=== PATIENT | male | born 1955 | race Caucasian/White ===

== ENCOUNTER 2017-03-14 06:35 | Inpatient (IN) | payer MEDICARE, MEDICAID ==
[2017-03-14] VITALS (14 sets, daily range): BP systolic 130–186; BP diastolic 69–85
[~2017-03-14] VITALS: Ht 180.3 cm; Wt 88.5 kg
[~2017-03-14 06:35] MED LIST: ACYC400T PO; ALPR-624 PO; AMIO200T57 PO; CARV-50 PO; CLON-529 PO; CLOP75TA15 PO; COL250C PO; GABA-530 PO; HYDR-3972 PO; LOSA25TA96 PO; SEVE800T8 PO; adenosine 3mg/ml 2ml vial IV ONE; etomidate 2mg/ml inj. ONE; nitroGLYCERIN 0.4mg SUBLingual tab SL ONE; nitroGLYCERIN in D5W 50mg/250ml (Tridil) infusion IV ONE; normal saline 1000ML IV soln ONE; rocuronium 10mg/ml inj IV ONE
[2017-03-14] MEDS ORDERED: propofol 1000mg/100ml bottle 100 ML IV ONE (06:59)
[2017-03-14 07:18] LABS: BASOPHILS # (AUTO) 0.1 X10'3 (0-0.2); BASOPHILS % (AUTO) 0.8 % (0-1); EOSINOPHILS # (AUTO) 0.7 X10'3 (0-0.9); EOSINOPHILS % (AUTO) 4.2 % (0-6); HEMATOCRIT 34.8 % (42.0-52.0); HEMOGLOBIN 11.4 g/dl (14.0-17.9); LYMPHOCYTES # (AUTO) 4.1 X10'3 (1.1-4.8); LYMPHOCYTES % (AUTO) 26.4 % (21-51); MEAN CORPUSCULAR HEMOGLOBIN 30.3 PG (27.0-31.0); MEAN CORPUSCULAR HGB CONC 32.9 % (33.0-36.5); MEAN CORPUSCULAR VOLUME 92.3 FL (78-98); MEAN PLATELET VOLUME 8.1 FL (7.4-10.4); MONOCYTES # (AUTO) 0.6 X10'3 (0-0.9); MONOCYTES % (AUTO) 3.8 % (2-12); NEUTROPHILS # (AUTO) 10.1 X10'3 (1.8-7.7); NEUTROPHILS % (AUTO) 64.8 % (42-75); PLATELET COUNT 290 X10'3 (140-440); RED BLOOD COUNT 3.77 X10'6 (4.70-6.10); RED CELL DISTRIBUTION WIDTH 19.8 % (11.5-14.5); WHITE BLOOD COUNT 15.6 X10'3 (4.5-11.0)
[2017-03-14] MEDS ORDERED: azithromycin/NS 500mg/250ml 250 ML IV ONE (07:20)
[2017-03-14] MEDS ORDERED: CefTRIAXone 2gm/NS 100ml IVPB 100 ML IV ONE (07:20)
[2017-03-14 07:23] LABS: INR 1.1 INR; PARTIAL THROMBOPLASTIN TIME 31 SECONDS (22-32)
[2017-03-14 07:27] LABS: ALANINE AMINOTRANSFERASE 21 U/L (12-78); ALBUMIN 3.4 G/DL (3.4-5.0); ALBUMIN/GLOBULIN RATIO 0.8 (1.1-1.5); ALKALINE PHOSPHATASE 140 IU/L (46-116); ANION GAP 14 (8-16); ASPARTATE AMINO TRANSFERASE 18 U/L (10-37); BILIRUBIN,TOTAL 0.5 MG/DL (0.1-1.0); BLOOD UREA NITROGEN 58 MG/DL (7-18); BUN/CREATININE RATIO 6.4 (5.4-32.0); CHLORIDE 99 MMOL/L (99-107); GLUCOSE 204 MG/DL (70-104); SODIUM 140 MMOL/L (135-145); TOTAL CARBON DIOXIDE 26.6 MMOL/L (24-32); TOTAL PROTEIN 7.9 G/DL (6.4-8.2); eGFR 6 ML/MIN
[2017-03-14 07:28] LABS: POTASSIUM 5.3 MMOL/L (3.5-5.1)
[2017-03-14 07:31] LABS: ABG BASE EXCESS -0.7 mmol/L (-2.0-3.0); ABG HCO3 30.3 mmol/L (22.0-26.0); ABG OXYGEN SATURATION 94.4 % (95-98); ABG PCO2 (T) 91.1 mmHg (35.0-48.0); ABG PO2 (T) 96.9 mmHg (83-108); ALLEN'S TEST Positive; FCOHb 4.8 % (0.5-1.5); FLOW 35 L/min; FO2Hb 89.9 % (94-100); MINUTE VOLUME 7 L/min; PEEP 5 cm H2O; RESPIRATORY RATE 14 b/min; RESPIRATORY RATE (OBSERVED) 14 b/min; TIDAL VOLUME 500 mL; TOTAL HEMOGLOBIN 11.7 G/dl (14.0-18.0)
[2017-03-14] MEDS ORDERED: normal saline 1000ml 250 ML IV PRN (08:29)
[2017-03-14] MEDS ORDERED: heparin 1,000 units/ml 10ml inj IV ONE (08:30)
[2017-03-14] MEDS ORDERED: LIDOcaine 1% (10mg/ml) 2ml vial SQ ONE (08:30)
[2017-03-14] MEDS ORDERED: vancomycin/NS 1 GM ADD-VANTAGE 250 ML IV PRN (08:35)
[2017-03-14] MEDS ORDERED: midazolam 2 mg/2 ml injection IV ONE (08:35)
[2017-03-14] MEDS ORDERED: fentaNYL/PF 50MCG/1 ML 2ML syringe IV PRN (08:35)
[2017-03-14] MEDS ORDERED: ipratropium/albuterol 3ml nebule NEB PRN (08:35)
[2017-03-14] MEDS ORDERED: acetaminophen 325mg tablet PO PRN ×2 (08:35)
[2017-03-14] MEDS ORDERED: ondansetron/PF 4mg/2ml inj IV PRN (08:35)
[2017-03-14] MEDS ORDERED: albuterol 2.5 MG/3 ML nebule ONE (09:00)
[2017-03-14] MEDS ORDERED: albuterol 2.5 MG/3 ML nebule CONTNEB PRN (09:00)
[2017-03-14] MEDS ORDERED: methylPREDNISolone sod succ 125mg/2ml vial IV ONE (09:00)
[2017-03-14] MEDS ORDERED: vancomycin/NS 1 GM ADD-VANTAGE 250 ML IV ONE (09:05)
[2017-03-14 09:15] LABS: ABG BASE EXCESS 0.2 mmol/L (-2.0-3.0); ABG OXYGEN SATURATION 84.7 % (95-98); ABG PCO2 (T) 54.5 mmHg (35.0-48.0); ABG PH (T) 7.313 (7.350-7.450); ABG PO2 (T) 57.7 mmHg (83-108); ALLEN'S TEST Positive; FCOHb 4.3 % (0.5-1.5); FMetHb 0.3 % (0.3-1.12); FO2Hb 80.8 % (94-100); PEEP 5 cm H2O; RESPIRATORY RATE 18 b/min; RESPIRATORY RATE (OBSERVED) 18 b/min; TIDAL VOLUME 500 mL; TOTAL HEMOGLOBIN 10.9 G/dl (14.0-18.0)
[2017-03-14] MEDS: ipratropium/albuterol 3ml nebule NEB SCH ×4 (10:42→22:43)
[2017-03-14] MEDS: midazolam 100mg in NS 100ml 100 ML IV PRN (11:30)
[2017-03-14] MEDS: FENTANYL-0.9 % NACL/PF 100 ML IV PRN (11:31)
[2017-03-14] MEDS ORDERED: HYDR-4069 PO (13:40)
[2017-03-14] MEDS ORDERED: DOCU250C88 PO (13:40)
[2017-03-14] MEDS ORDERED: CLON0.3T PO (13:40)
[2017-03-14] MEDS ORDERED: LOSA50TA37 PO (13:40)
[2017-03-14] MEDS ORDERED: FURO80TA3 PO (13:40)
[2017-03-14] MEDS: piperacillin-tazo 2.25gm/50ml 50 ML IV SCH ×3 (14:00→19:52)
[2017-03-14 14:45] LABS: ABG BASE EXCESS 2.7 mmol/L (-2.0-3.0); ABG HCO3 26.7 mmol/L (22.0-26.0); ABG OXYGEN SATURATION 94.3 % (95-98); ABG PH (T) 7.454 (7.350-7.450); ABG PO2 (T) 75.2 mmHg (83-108); ALLEN'S TEST Positive; FCOHb 1.8 % (0.5-1.5); FMetHb 0.3 % (0.3-1.12); FO2Hb 92.3 % (94-100); MINUTE VOLUME 10 L/min; PEEP 5 cm H2O; RESPIRATORY RATE 20 b/min; RESPIRATORY RATE (OBSERVED) 22 b/min; TIDAL VOLUME 400 mL; TOTAL HEMOGLOBIN 10.7 G/dl (14.0-18.0)
[2017-03-14] MEDS ORDERED: ALPR-624 PO (16:35)
[2017-03-14] MEDS ORDERED: ALPR0.5T8 PO (16:35)
[2017-03-14] MEDS ORDERED: NIFE90TA37 PO (16:59)
[2017-03-14] MEDS ORDERED: FOLI0.8T7 PO (17:01)
[2017-03-14] MEDS ORDERED: FOLI1TAB16 PO (17:02)
[2017-03-14] MEDS ORDERED: ONDA4TAB12 SL (17:02)
[2017-03-14] MEDS: lactobacillus rhamnosus 10,000 MMU CELLS/CAPSULE PO SCH (17:57)
[2017-03-14] MEDS: docusate sodium 100mg/10ml UD cup PO SCH (19:07)
[2017-03-14] MEDS: famotidine/PF 10 mg/ml inj IV SCH (19:52)
[2017-03-14] MEDS: heparin, porcine 5000 units/ml vial SQ SCH (19:52)
[2017-03-15] VITALS (11 sets, daily range): BP systolic 169–232; BP diastolic 75–92
[2017-03-15] MEDS: piperacillin-tazo 2.25gm/50ml 50 ML IV SCH ×2 (01:24→07:13)
[2017-03-15] MEDS: ipratropium/albuterol 3ml nebule NEB SCH ×2 (02:35→07:57)
[2017-03-15] MEDS ORDERED: VANCOMYCIN LEVEL IV SCH (03:00)
[2017-03-15 04:11] LABS: ABG BASE EXCESS 1.7 mmol/L (-2.0-3.0); ABG HCO3 25.6 mmol/L (22.0-26.0); ABG OXYGEN SATURATION 94.2 % (95-98); ABG PCO2 (T) 37.1 mmHg (35.0-48.0); ABG PH (T) 7.456 (7.350-7.450); ABG PO2 (T) 73.8 mmHg (83-108); ALLEN'S TEST Positive; FCOHb 1.2 % (0.5-1.5); FMetHb 0.3 % (0.3-1.12); FO2Hb 92.8 % (94-100); MINUTE VOLUME 9 L/min; PATIENT TEMPERATURE 36.9; PEEP 5 cm H2O; RESPIRATORY RATE 20 b/min; RESPIRATORY RATE (OBSERVED) 21 b/min; TIDAL VOLUME 400 mL; TOTAL HEMOGLOBIN 10.1 G/dl (14.0-18.0)
[2017-03-15] MEDS: midazolam 100mg in NS 100ml 100 ML IV PRN (05:03)
[2017-03-15 05:15] LABS: BASOPHILS # (AUTO) 0.1 X10'3 (0-0.2); EOSINOPHILS # (AUTO) 0.1 X10'3 (0-0.9); EOSINOPHILS % (AUTO) 1.4 % (0-6); HEMATOCRIT 27.8 % (42.0-52.0); HEMOGLOBIN 9.4 g/dl (14.0-17.9); LYMPHOCYTES # (AUTO) 1.2 X10'3 (1.1-4.8); LYMPHOCYTES % (AUTO) 19.1 % (21-51); MEAN CORPUSCULAR HEMOGLOBIN 30.1 PG (27.0-31.0); MEAN CORPUSCULAR HGB CONC 33.8 % (33.0-36.5); MEAN CORPUSCULAR VOLUME 89.2 FL (78-98); MEAN PLATELET VOLUME 7.8 FL (7.4-10.4); MONOCYTES # (AUTO) 0.3 X10'3 (0-0.9); MONOCYTES % (AUTO) 5.4 % (2-12); NEUTROPHILS # (AUTO) 4.5 X10'3 (1.8-7.7); NEUTROPHILS % (AUTO) 73.1 % (42-75); PLATELET COUNT 175 X10'3 (140-440); RED BLOOD COUNT 3.12 X10'6 (4.70-6.10); RED CELL DISTRIBUTION WIDTH 19.4 % (11.5-14.5); WHITE BLOOD COUNT 6.1 X10'3 (4.5-11.0)
[2017-03-15 05:58] LABS: ALANINE AMINOTRANSFERASE 19 U/L (12-78); ALBUMIN 2.8 G/DL (3.4-5.0); ALBUMIN/GLOBULIN RATIO 0.8 (1.1-1.5); ALKALINE PHOSPHATASE 109 IU/L (46-116); ANION GAP 11 (8-16); ASPARTATE AMINO TRANSFERASE 18 U/L (10-37); BILIRUBIN,TOTAL 0.5 MG/DL (0.1-1.0); BLOOD UREA NITROGEN 34 MG/DL (7-18); BUN/CREATININE RATIO 5.8 (5.4-32.0); CALCIUM 9.1 MG/DL (8.5-10.1); CHLORIDE 100 MMOL/L (99-107); GLUCOSE 100 MG/DL (70-104); MAGNESIUM 2.2 MG/DL (1.5-2.4); PHOSPHORUS 6.1 MG/DL (2.3-4.5); POTASSIUM 4.4 MMOL/L (3.5-5.1); SODIUM 140 MMOL/L (135-145); TOTAL CARBON DIOXIDE 28.8 MMOL/L (24-32); TOTAL PROTEIN 6.5 G/DL (6.4-8.2); VANCOMYCIN,RANDOM 6.6 UG/ML; eGFR 10 ML/MIN
[2017-03-15 06:15] LABS: TROPONIN I 2.13 NG/ML (0.0-0.05)
[2017-03-15] MEDS: FENTANYL-0.9 % NACL/PF 100 ML IV PRN (06:46)
[2017-03-15] MEDS: famotidine/PF 10 mg/ml inj IV SCH (07:12)
[2017-03-15] MEDS: heparin, porcine 5000 units/ml vial SQ SCH (07:13)
[2017-03-15] MEDS: lactobacillus rhamnosus 10,000 MMU CELLS/CAPSULE PO SCH (07:13)
[2017-03-15] MEDS: docusate sodium 100mg/10ml UD cup PO SCH (07:13)
[2017-03-15] MEDS ORDERED: vancomycin inj 1,250 MG in normal saline 250ml IV soln 250 ML IV ONE (09:00)
[2017-03-15] MEDS ORDERED: racepinephrine 11.25mg/0.5ml nebule NEB PRN (09:15)
[2017-03-15] MEDS ORDERED: ipratropium/albuterol 3ml nebule NEB PRN (09:15)
[2017-03-15] MEDS ORDERED: mineral oil/petrolatum ophthal oint EACHEYE SCH (14:00)
[2017-03-15] MEDS ORDERED: ipratropium/albuterol 3ml nebule NEB SCH (15:00)
== END 2017-03-15 10:26 | disposition left against medical advice (07) | DRG 208 ==
LOC: ER 06:35 → ED HOLD 08:31 → ICU 2S 11:23
PROVIDERS: ADMIT Internal Medicine Critical Care Medicine; ATTEND Internal Medicine Critical Care Medicine
PROC: 5A1945Z Respiratory Ventilation, 24-96 Consecutive Hours (ICD-10-PCS; principal; 2017-03-14)
PROC: 5A09357 Assistance with Respiratory Ventilation, Less than 24 Consecutive Hours, Continuous Positive Airway Pressure (ICD-10-PCS; 2017-03-14)
PROC: 0BH17EZ Insertion of Endotracheal Airway into Trachea, Via Natural or Artificial Opening (ICD-10-PCS; 2017-03-14)
PROC: 5A1D70Z Performance of Urinary Filtration, Intermittent, Less than 6 Hours Per Day (ICD-10-PCS; 2017-03-14)
DX: J96.21 Acute and chronic respiratory failure with hypoxia (principal); I21.4 Non-ST elevation (NSTEMI) myocardial infarction; J81.0 Acute pulmonary edema; I13.2 Hypertensive heart and chronic kidney disease with heart failure and with stage 5 chronic kidney disease, or end stage renal disease; J18.1 Lobar pneumonia, unspecified organism; N18.6 End stage renal disease; I50.9 Heart failure, unspecified; J44.0 Chronic obstructive pulmonary disease with (acute) lower respiratory infection; J44.1 Chronic obstructive pulmonary disease with (acute) exacerbation; G47.30 Sleep apnea, unspecified; Z53.21 Procedure and treatment not carried out due to patient leaving prior to being seen by health care provider; F32.9 Major depressive disorder, single episode, unspecified; I25.10 Atherosclerotic heart disease of native coronary artery without angina pectoris; F17.210 Nicotine dependence, cigarettes, uncomplicated; Z91.15 Patient's noncompliance with renal dialysis; Z91.19 Patient's noncompliance with other medical treatment and regimen; Z99.2 Dependence on renal dialysis; Z88.2 Allergy status to sulfonamides; Z79.899 Other long term (current) drug therapy
CPT/HCPCS: 36415; 36600; 71045; 80053; 80202; 82803; 82948; 83605; 83735; 84100; 84145; 84484; 85018; 85025; 85610; 85730; 87040; 87070; 87502; 87503; 93005; 94002; 94003; 94640; 94660; 94760; 96365; 99291; 99292; A6213; A6402; A7015; C1758; G0257; J0153; J0456; J0696; J1644; J2250; J2543; J2704; J2930; J3370; J3490; J7030

== ENCOUNTER 2017-12-08 12:14 | Inpatient (IN) | payer MEDICARE, MEDICAID ==
[2017-12-08] VITALS (14 sets, daily range): BP systolic 65–171; BP diastolic 52–96
[~2017-12-08] VITALS: Ht 185.4 cm; Wt 93.1 kg
[~2017-12-08 12:14] MED LIST changes: +0.9 % SODIUM CHLORIDE 10 ML VIAL ONE; -ACYC400T PO; +ALPR0.5T8 PO; -AMIO200T57 PO; -CLON-529 PO; +CLON0.3T PO; -CLOP75TA15 PO; -COL250C PO; +DOCU250C88 PO; +FOLI0.8T7 PO; +FOLI1TAB16 PO; +FURO80TA3 PO; +HYDR-4069 PO; -LOSA25TA96 PO; +LOSA50TA21 PO; +NIFE90TA37 PO; +NORepinephrine bitartrate 8 MG in NS 250 ML BAG (32 mcg/ml) IV ONE; +ONDA4TAB12 SL; -adenosine 3mg/ml 2ml vial IV ONE; -nitroGLYCERIN 0.4mg SUBLingual tab SL ONE; -nitroGLYCERIN in D5W 50mg/250ml (Tridil) infusion IV ONE; -normal saline 1000ML IV soln ONE
[2017-12-08] MEDS ORDERED: succinylcholine 20mg/ml inj IV ONE (12:35)
[2017-12-08] MEDS ORDERED: etomidate 2mg/ml inj. IV ONE (12:35)
[2017-12-08] MEDS: propofol 1000mg/100ml bottle 100 ML IV PRN ×2 (12:41→22:53)
[2017-12-08 12:47] LABS: BASOPHILS # (AUTO) 0.1 X10'3 (0-0.2); BASOPHILS % (AUTO) 0.5 % (0-1); EOSINOPHILS # (AUTO) 0.4 X10'3 (0-0.9); EOSINOPHILS % (AUTO) 2.7 % (0-6); HEMATOCRIT 41.6 % (42.0-52.0); HEMOGLOBIN 13.5 g/dl (14.0-17.9); LYMPHOCYTES # (AUTO) 4.5 X10'3 (1.1-4.8); LYMPHOCYTES % (AUTO) 29.1 % (21-51); MEAN CORPUSCULAR HEMOGLOBIN 30.4 PG (27.0-31.0); MEAN CORPUSCULAR HGB CONC 32.4 % (33.0-36.5); MEAN CORPUSCULAR VOLUME 93.7 FL (78-98); MEAN PLATELET VOLUME 8.1 FL (7.4-10.4); MONOCYTES # (AUTO) 0.6 X10'3 (0-0.9); MONOCYTES % (AUTO) 3.7 % (2-12); NEUTROPHILS # (AUTO) 9.9 X10'3 (1.8-7.7); PLATELET COUNT 319 X10'3 (140-440); RED BLOOD COUNT 4.45 X10'6 (4.70-6.10); RED CELL DISTRIBUTION WIDTH 18.1 % (11.5-14.5); WHITE BLOOD COUNT 15.5 X10'3 (4.5-11.0)
[2017-12-08] MEDS ORDERED: nitroGLYCERIN-Tridil 50MG/D5W 250 ML IV PRN (12:55)
[2017-12-08 13:01] LABS: ALANINE AMINOTRANSFERASE 17 U/L (12-78); ALBUMIN 3.4 G/DL (3.4-5.0); ALBUMIN/GLOBULIN RATIO 0.7 (1.1-1.5); ALKALINE PHOSPHATASE 145 IU/L (46-116); ANION GAP 12 (8-16); ASPARTATE AMINO TRANSFERASE 13 U/L (10-37); BILIRUBIN,TOTAL 0.5 MG/DL (0.1-1.0); BLOOD UREA NITROGEN 44 MG/DL (7-18); BUN/CREATININE RATIO 5.2 (5.4-32.0); CHLORIDE 101 MMOL/L (99-107); CREATININE 8.39 MG/DL (0.60-1.10); GLUCOSE 219 MG/DL (70-104); POTASSIUM 5.7 MMOL/L (3.5-5.1); SODIUM 139 MMOL/L (135-145); TOTAL PROTEIN 8.5 G/DL (6.4-8.2); eGFR 7 ML/MIN
[2017-12-08 13:01] LABS: ABG BASE EXCESS -9.3 mmol/L (-2.0-3.0); ABG HCO3 25.9 mmol/L (22.0-26.0); ABG PCO2 (T) 115.8 mmHg (35.0-48.0); ABG PH (T) 6.956 (7.350-7.450); ABG PO2 (T) 81.2 mmHg (83-108); ALLEN'S TEST Positive; FCOHb 7.4 % (0.5-1.5); FMetHb 0.3 % (0.3-1.12); MINUTE VOLUME 8 L/min; PATIENT TEMPERATURE 35.4; PEEP 5 cm H2O; RESPIRATORY RATE 16 b/min; RESPIRATORY RATE (OBSERVED) 17 b/min; TIDAL VOLUME 450 mL; TOTAL HEMOGLOBIN 13.5 G/dl (14.0-18.0)
[2017-12-08 13:06] LABS: ETHANOL < 0.010 GM/DL (0.0-0.010); MAGNESIUM 2.8 MG/DL (1.5-2.4); PHOSPHORUS 4.8 MG/DL (2.3-4.5)
[2017-12-08 13:12] LABS: INR 1.1 INR; PARTIAL THROMBOPLASTIN TIME 37 SECONDS (22-32); PROTHROMBIN TIME 10.9 SECONDS (9.0-12.0)
[2017-12-08 13:14] LABS: CLARITY,URINE CLEAR (Clear); COLOR,URINE YELLOW (Yellow); GLUCOSE, URINE 250 mg/dl (Neg); KETONES,URINE NEGATIVE (Neg); LEUKOCYTE ESTERASE ,URINE NEGATIVE (Neg); NITRITES, URINE NEGATIVE (Neg); OCCULT BLOOD,URINE TRACE-INTACT (Neg); PROTEIN,URINE 100 mg/dl (Neg); UROBILINOGEN,URINE 0.2 E.U/dL (0.2-1.0)
[2017-12-08 13:16] LABS: ACETAMINOPHEN < 2.0 UG/ML (10-30)
[2017-12-08 13:18] LABS: LACTIC SEPSIS 4.9 MMOL/L (0.4-2.0)
[2017-12-08 13:19] LABS: UA COLLECTION TYPE FOLEY CATH
[2017-12-08 13:23] LABS: BACTERIA,URINE NONE SEEN /HPF (Neg); RBC,URINE 0-2 /HPF (0-2); SQUAMOUS EPITHELIAL CELL,UR FEW /LPF (FEW); URINE AMPHETAMINE SCREEN NEGATIVE (Neg); URINE BARBITUATE SCREEN NEGATIVE (Neg); URINE BENZODIAZEPINES SCREEN NEGATIVE (Neg); URINE CANNABINOID SCREEN NEGATIVE (Neg); URINE COCAINE SCREEN NEGATIVE (Neg); URINE METHADONE SCREEN NEGATIVE (Neg); URINE OPIATE SCREEN POSITIVE (Neg); URINE PHENCYCLIDINE SCREEN NEGATIVE (Neg); WBC,URINE 0-4 /HPF (0-4)
[2017-12-08] MEDS ORDERED: normal saline 1000ml 250 ML IV PRN (13:24)
[2017-12-08] MEDS ORDERED: normal saline 1000ml 100 ML IV PRN (13:24)
[2017-12-08] MEDS: pantoprazole 40 MG vial IV SCH (13:25)
[2017-12-08] MEDS ORDERED: ipratropium/albuterol 3ml nebule NEB PRN (13:25)
[2017-12-08] MEDS ORDERED: acetaminophen 325mg tablet PO PRN ×2 (13:25)
[2017-12-08] MEDS ORDERED: morphine 2 MG/ML inj. syringe IV PRN (13:25)
[2017-12-08] MEDS ORDERED: metoclopramide 5 mg/ml inj IV PRN (13:25)
[2017-12-08] MEDS ORDERED: magnesium hydroxide 30ml (MOM) UD suspension PO PRN (13:25)
[2017-12-08 13:33] LABS: ANISOCYTOSIS 2+; PLATELET ESTIMATE NORMAL
[2017-12-08] MEDS ORDERED: DOCU250C4 PO (13:38)
[2017-12-08] MEDS ORDERED: CLON-529 PO (13:38)
[2017-12-08] MEDS ORDERED: NIFE30TA88 PO (13:38)
[2017-12-08] MEDS ORDERED: MINO2.5T19 PO (13:38)
[2017-12-08] MEDS ORDERED: CARV-50 PO (13:38)
[2017-12-08] MEDS ORDERED: GABA-530 PO (13:38)
[2017-12-08] MEDS ORDERED: SEVE800T8 PO (13:38)
[2017-12-08] MEDS ORDERED: LOSA25TA96 PO (13:38)
[2017-12-08] MEDS ORDERED: HYDR-4353 PO (13:38)
[2017-12-08] MEDS ORDERED: CYAN1TAB18 PO (13:38)
[2017-12-08] MEDS ORDERED: ONDA4TAB9 SL (13:38)
[2017-12-08] MEDS ORDERED: rocuronium 10mg/ml inj IV ONE (13:55)
[2017-12-08 14:16] LABS: ABG BASE EXCESS -7.3 mmol/L (-2.0-3.0); ABG HCO3 23.6 mmol/L (22.0-26.0); ABG OXYGEN SATURATION 93.8 % (95-98); ABG PCO2 (T) 75.2 mmHg (35.0-48.0); ABG PH (T) 7.115 (7.350-7.450); ABG PO2 (T) 89.9 mmHg (83-108); ALLEN'S TEST Positive; FCOHb 5.9 % (0.5-1.5); FMetHb 0.3 % (0.3-1.12); MINUTE VOLUME 12 L/min; PEEP 10 cm H2O; RESPIRATORY RATE 22 b/min; TIDAL VOLUME 475 mL; TOTAL HEMOGLOBIN 13.9 G/dl (14.0-18.0)
[2017-12-08 14:31] LABS: D-DIMER 1.87 MG/L FEU (0-0.50)
[2017-12-08] MEDS ORDERED: vancomycin/NS 1 GM ADD-VANTAGE 250 ML IV ONE ×2 (15:20→20:00)
[2017-12-08] MEDS ORDERED: cefepime 1GM/NS ADD-VANTAGE 100 ML IV SCH (15:20)
[2017-12-08] MEDS: cefepime 1GM/NS ADD-VANTAGE 100 ML IV SCH (19:00)
[2017-12-08] MEDS ORDERED: albumin (human) 25% 100ml IV 100 ML IV ONE (19:25)
[2017-12-08] MEDS ORDERED: NORepinephrine 8mg/ 250ml NS 250 ML IV SCH (19:25)
[2017-12-08 19:40] LABS: ABG BASE EXCESS -0.9 mmol/L (-2.0-3.0); ABG HCO3 24.3 mmol/L (22.0-26.0); ABG OXYGEN SATURATION 94.6 % (95-98); ABG PCO2 (T) 41.3 mmHg (35.0-48.0); ABG PH (T) 7.385 (7.350-7.450); ABG PO2 (T) 70.2 mmHg (83-108); ALLEN'S TEST Positive; FCOHb 2.9 % (0.5-1.5); FMetHb 0.3 % (0.3-1.12); FO2Hb 91.6 % (94-100); MINUTE VOLUME 11 L/min; PATIENT TEMPERATURE 36.4; PEEP 10 cm H2O; RESPIRATORY RATE 22 b/min; RESPIRATORY RATE (OBSERVED) 23 b/min; TIDAL VOLUME 475 mL
[2017-12-08 20:18] LABS: MAGNESIUM 2.1 MG/DL (1.5-2.4)
[2017-12-08] MEDS ORDERED: heparin 10,000 units/1 ML INJ IV ONE (20:30)
[2017-12-08 21:01] LABS: HEMATOCRIT 35.3 % (42.0-52.0); HEMOGLOBIN 11.6 g/dl (14.0-17.9); MEAN CORPUSCULAR HEMOGLOBIN 30.1 PG (27.0-31.0); MEAN CORPUSCULAR HGB CONC 32.8 % (33.0-36.5); MEAN CORPUSCULAR VOLUME 91.8 FL (78-98); MEAN PLATELET VOLUME 7.3 FL (7.4-10.4); PLATELET COUNT 252 X10'3 (140-440); RED BLOOD COUNT 3.84 X10'6 (4.70-6.10); WHITE BLOOD COUNT 14.6 X10'3 (4.5-11.0)
[2017-12-08] MEDS: heparin 25,000 UNIT/250ml bag 250 ML IV SCH (21:11)
[2017-12-08 21:26] LABS: OXYGEN SATURATION (MIXED VEN) 85.7 % (60-80); PO2 MIXED VENOUS (TEMP COR) 46.3 mmHg (35-46)
[2017-12-08] MEDS ORDERED: aspirin 81mg tab.chew PO ONE (21:40)
[2017-12-09] VITALS (24 sets, daily range): BP systolic 102–194; BP diastolic 52–115
[2017-12-09 00:55] LABS: ALANINE AMINOTRANSFERASE 23 U/L (12-78); ALBUMIN 3.1 G/DL (3.4-5.0); ALBUMIN/GLOBULIN RATIO 0.8 (1.1-1.5); ALKALINE PHOSPHATASE 113 IU/L (46-116); ANION GAP 15 (8-16); ASPARTATE AMINO TRANSFERASE 121 U/L (10-37); BILIRUBIN,TOTAL 0.6 MG/DL (0.1-1.0); BLOOD UREA NITROGEN 30 MG/DL (7-18); CALCIUM 9.3 MG/DL (8.5-10.1); CHLORIDE 100 MMOL/L (99-107); CREATININE 5.99 MG/DL (0.60-1.10); GLUCOSE 75 MG/DL (70-104); POTASSIUM 4.4 MMOL/L (3.5-5.1); SODIUM 140 MMOL/L (135-145); TOTAL CARBON DIOXIDE 25.3 MMOL/L (24-32); eGFR 10 ML/MIN
[2017-12-09 00:58] LABS: MAGNESIUM 2.2 MG/DL (1.5-2.4); PHOSPHORUS 3.4 MG/DL (2.3-4.5)
[2017-12-09] MEDS: nitroGLYCERIN-Tridil 50MG/D5W 250 ML IV PRN ×2 (01:34→19:10)
[2017-12-09] MEDS: propofol 1000mg/100ml bottle 100 ML IV PRN ×5 (02:33→23:34)
[2017-12-09 03:14] LABS: BASOPHILS % (AUTO) 0.3 % (0-1); EOSINOPHILS # (AUTO) 0.2 X10'3 (0-0.9); HEMATOCRIT 32.5 % (42.0-52.0); HEMOGLOBIN 10.9 g/dl (14.0-17.9); LYMPHOCYTES # (AUTO) 0.7 X10'3 (1.1-4.8); LYMPHOCYTES % (AUTO) 6.8 % (21-51); MEAN CORPUSCULAR HEMOGLOBIN 30.5 PG (27.0-31.0); MEAN CORPUSCULAR HGB CONC 33.4 % (33.0-36.5); MEAN CORPUSCULAR VOLUME 91.4 FL (78-98); MEAN PLATELET VOLUME 7.6 FL (7.4-10.4); MONOCYTES # (AUTO) 0.5 X10'3 (0-0.9); MONOCYTES % (AUTO) 4.9 % (2-12); NEUTROPHILS # (AUTO) 9.5 X10'3 (1.8-7.7); PLATELET COUNT 214 X10'3 (140-440); RED BLOOD COUNT 3.56 X10'6 (4.70-6.10); RED CELL DISTRIBUTION WIDTH 17.2 % (11.5-14.5); WHITE BLOOD COUNT 11.1 X10'3 (4.5-11.0)
[2017-12-09 04:05] LABS: ABG BASE EXCESS -0.4 mmol/L (-2.0-3.0); ABG HCO3 24.3 mmol/L (22.0-26.0); ABG OXYGEN SATURATION 98.2 % (95-98); ABG PCO2 (T) 40.1 mmHg (35.0-48.0); ABG PH (T) 7.401 (7.350-7.450); ABG PO2 (T) 119.1 mmHg (83-108); ALLEN'S TEST Positive; FCOHb 0.9 % (0.5-1.5); FMetHb 0.3 % (0.3-1.12); MINUTE VOLUME 11 L/min; PEEP 10 cm H2O; RESPIRATORY RATE 22 b/min; RESPIRATORY RATE (OBSERVED) 22 b/min; TIDAL VOLUME 475 mL; TOTAL HEMOGLOBIN 11.6 G/dl (14.0-18.0)
[2017-12-09] MEDS: heparin 10,000 units/1 ML INJ IV PRN ×2 (04:18→09:49)
[2017-12-09] MEDS: heparin 25,000 UNIT/250ml bag 250 ML IV SCH ×2 (04:21→09:54)
[2017-12-09] MEDS ORDERED: dextrose 50%-water 50ml dispensing syringe IV ONE (08:33)
[2017-12-09] MEDS: pantoprazole 40 MG vial IV SCH (08:43)
[2017-12-09] MEDS ORDERED: gabapentin 100mg capsule PO PRN (10:55)
[2017-12-09] MEDS: sevelamer carbonate 800mg tablet PO SCH ×3 (12:00→23:34)
[2017-12-09] MEDS: cloNIDine 0.1 mg tablet PO SCH ×2 (13:00→21:00)
[2017-12-09] MEDS: docusate sod 250mg capsule PO SCH (13:47)
[2017-12-09] MEDS: HYDROcodone/acetaminophen 10/325mg tab PO SCH ×2 (13:47→20:00)
[2017-12-09] MEDS ORDERED: nitroGLYCERIN-Tridil 50MG/D5W 250 ML IV ONE (15:07)
[2017-12-09] MEDS ORDERED: heparin 1,000unit/ml 10ml vial 10 ML ONE (15:07)
[2017-12-09] MEDS ORDERED: iohexol 350 MG/1 ML 200ml bottle ONE (15:07)
[2017-12-09] MEDS ORDERED: LIDOcaine 1% 30ml preserv. free vial ONE (15:07)
[2017-12-09] MEDS: normal saline 1000ml 1,000 ML IV SCH (15:11)
[2017-12-09] MEDS ORDERED: metoprolol tartrate 1mg/ml inj IV ONE (15:47)
[2017-12-09] MEDS ORDERED: iohexol 350 MG/ML 50ML vial IV ONE (15:53)
[2017-12-09] MEDS: ondansetron 4mg rapidly disintigrating tab PO SCH (16:00)
[2017-12-09] MEDS ORDERED: iohexol 350MG/ML 100ml bottle IV ONE (16:38)
[2017-12-09] MEDS ORDERED: heparin 25,000 UNIT/250ml bag 250 ML IV ONE (16:46)
[2017-12-09] MEDS ORDERED: DOBUTamine-DoBUTrex 500mg/D5W 250 ML IV ONE (16:52)
[2017-12-09] MEDS ORDERED: niCARDipine-NS 40mg/200ml IVPB 200 ML IV ONE (17:39)
[2017-12-09 17:46] LABS: ISTAT Hct MIX 30 %PCV (42-52); ISTAT O2 SATURATION MIX VENOUS 69 % (60-80); ISTAT SOURCE MIX
[2017-12-09 17:46] LABS: ISTAT HGB ART 10.2 g/dl (14.0-18.0); ISTAT Hct ART 30 %PCV (42-52); ISTAT O2 SATURATION ARTERIAL 99 % (95-98); ISTAT SOURCE ART
[2017-12-09] MEDS ORDERED: HYDROcodone/acetaminophen 10/325mg tab PO PRN ×2 (18:10)
[2017-12-09] MEDS ORDERED: acetaminophen 325mg tablet PO PRN (18:10)
[2017-12-09] MEDS ORDERED: CLOPIDOGREL BISULFATE 300MG TAB PO ONE (18:10)
[2017-12-09] MEDS ORDERED: proCHLORperazine 10 MG/2 ml inj IV PRN (18:10)
[2017-12-09] MEDS ORDERED: hydrALAZINE 20mg/ml inj. IV PRN (18:15)
[2017-12-09] MEDS: morphine 4 MG/ML inj SYRINge IV PRN (18:36)
[2017-12-09] MEDS: niCARDipine/sod cl 20mg/200ml 200 ML IV SCH ×2 (19:00→20:05)
[2017-12-09] MEDS: DOBUTamine 2000 MCG/250ML BAG IV SCH (19:55)
[2017-12-09] MEDS ORDERED: minoxidil 2.5mg tablet PO SCH (20:00)
[2017-12-09] MEDS: docusate sod 100mg capsule PO SCH (20:00)
[2017-12-09] MEDS: cefepime 1GM/NS ADD-VANTAGE 100 ML IV SCH (20:18)
[2017-12-09] MEDS: carVEDilol 12.5mg tablet PO SCH (20:18)
[2017-12-09] MEDS: losartan 25mg tablet PO SCH (20:19)
[2017-12-09] MEDS: NIFEdipine XL 30mg tablet PO SCH (20:19)
[2017-12-09] MEDS: ipratropium/albuterol 3ml nebule NEB SCH ×2 (21:00→21:22)
[2017-12-10] VITALS (24 sets, daily range): BP systolic 85–150; BP diastolic 51–84
[2017-12-10] MEDS: niCARDipine/sod cl 20mg/200ml 200 ML IV SCH ×6 (00:05→20:05)
[2017-12-10] MEDS: HYDROcodone/acetaminophen 10/325mg tab PO SCH ×4 (00:58→20:00)
[2017-12-10] MEDS: heparin 25,000 UNIT/250ml bag 250 ML IV SCH ×2 (01:04→08:08)
[2017-12-10] MEDS: heparin 10,000 units/1 ML INJ IV PRN (01:06)
[2017-12-10 02:36] LABS: ABG BASE EXCESS -1.9 mmol/L (-2.0-3.0); ABG HCO3 22.1 mmol/L (22.0-26.0); ABG OXYGEN SATURATION 92.1 % (95-98); ABG PCO2 (T) 34.6 mmHg (35.0-48.0); ABG PH (T) 7.423 (7.350-7.450); FCOHb 0.3 % (0.5-1.5); FMetHb 0.3 % (0.3-1.12); FO2Hb 91.5 % (94-100); MINUTE VOLUME 12 L/min; PATIENT TEMPERATURE 36.8; PEEP 5 cm H2O; RESPIRATORY RATE 22 b/min; RESPIRATORY RATE (OBSERVED) 22 b/min; TIDAL VOLUME 475 mL; TOTAL HEMOGLOBIN 9.8 G/dl (14.0-18.0)
[2017-12-10] MEDS: ipratropium/albuterol 3ml nebule NEB SCH ×4 (02:40→20:42)
[2017-12-10] MEDS: propofol 1000mg/100ml bottle 100 ML IV PRN ×7 (02:42→21:24)
[2017-12-10 03:05] LABS: BASOPHILS # (AUTO) 0.1 X10'3 (0-0.2); BASOPHILS % (AUTO) 0.6 % (0-1); EOSINOPHILS # (AUTO) 0.2 X10'3 (0-0.9); EOSINOPHILS % (AUTO) 2.3 % (0-6); HEMATOCRIT 27.5 % (42.0-52.0); HEMOGLOBIN 8.9 g/dl (14.0-17.9); LYMPHOCYTES # (AUTO) 1.2 X10'3 (1.1-4.8); LYMPHOCYTES % (AUTO) 11.5 % (21-51); MEAN CORPUSCULAR HEMOGLOBIN 29.9 PG (27.0-31.0); MEAN CORPUSCULAR HGB CONC 32.6 % (33.0-36.5); MEAN CORPUSCULAR VOLUME 91.6 FL (78-98); MEAN PLATELET VOLUME 8.3 FL (7.4-10.4); MONOCYTES # (AUTO) 0.7 X10'3 (0-0.9); MONOCYTES % (AUTO) 6.7 % (2-12); NEUTROPHILS # (AUTO) 8.2 X10'3 (1.8-7.7); NEUTROPHILS % (AUTO) 78.9 % (42-75); PLATELET COUNT 174 X10'3 (140-440); RED CELL DISTRIBUTION WIDTH 17.3 % (11.5-14.5); WHITE BLOOD COUNT 10.3 X10'3 (4.5-11.0)
[2017-12-10 03:29] LABS: ALANINE AMINOTRANSFERASE 17 U/L (12-78); ALBUMIN 2.5 G/DL (3.4-5.0); ALBUMIN/GLOBULIN RATIO 0.7 (1.1-1.5); ALKALINE PHOSPHATASE 93 IU/L (46-116); ANION GAP 14 (8-16); ASPARTATE AMINO TRANSFERASE 58 U/L (10-37); BILIRUBIN,TOTAL 0.5 MG/DL (0.1-1.0); BLOOD UREA NITROGEN 43 MG/DL (7-18); BUN/CREATININE RATIO 5.4 (5.4-32.0); CALCIUM 9.5 MG/DL (8.5-10.1); CHLORIDE 98 MMOL/L (99-107); CHOL/HDL RATIO 3.7 (0.00-4.99); CHOLESTEROL 108 MG/DL (0-200); CREATININE 7.93 MG/DL (0.60-1.10); GLUCOSE 108 MG/DL (70-104); HDL CHOLESTEROL 29 MG/DL (35-60); LDL CHOLESTEROL 60 MG/DL (50-100); PHOSPHORUS 5.1 MG/DL (2.3-4.5); POTASSIUM 4.9 MMOL/L (3.5-5.1); SODIUM 134 MMOL/L (135-145); TOTAL CARBON DIOXIDE 22.3 MMOL/L (24-32); TOTAL PROTEIN 5.9 G/DL (6.4-8.2); TRIGLYCERIDES 120 MG/DL (20-135); eGFR 7 ML/MIN
[2017-12-10] MEDS ORDERED: vancomycin/NS 1 GM ADD-VANTAGE 250 ML IV ONE ×2 (04:50→15:00)
[2017-12-10] MEDS: NIFEdipine XL 30mg tablet PO SCH ×2 (07:55→19:48)
[2017-12-10] MEDS: docusate sod 100mg capsule PO SCH (07:55)
[2017-12-10] MEDS: ondansetron 4mg rapidly disintigrating tab PO SCH ×3 (07:56→17:14)
[2017-12-10] MEDS: carVEDilol 12.5mg tablet PO SCH ×3 (08:00→21:22)
[2017-12-10] MEDS ORDERED: PYRIDOXINE PO SCH (08:00)
[2017-12-10] MEDS ORDERED: FOLIC ACID PO SCH (08:00)
[2017-12-10] MEDS ORDERED: CYANOCOBALAMIN PO SCH (08:00)
[2017-12-10] MEDS: pantoprazole 40 MG vial IV SCH (08:21)
[2017-12-10] MEDS: cloNIDine 0.1 mg tablet PO SCH ×3 (08:22→21:21)
[2017-12-10] MEDS: aspirin 81mg tab.chew PO SCH (08:22)
[2017-12-10] MEDS: atorvastatin 20mg tablet PO SCH (08:23)
[2017-12-10] MEDS: clopidogrel 75mg tablet PO SCH (08:23)
[2017-12-10] MEDS: losartan 25mg tablet PO SCH ×2 (08:25→21:22)
[2017-12-10] MEDS: sevelamer carbonate 0.8gm powder pkt PO SCH ×4 (08:35→21:22)
[2017-12-10] MEDS ORDERED: normal saline 1000ml 250 ML IV PRN (09:06)
[2017-12-10] MEDS ORDERED: LIDOcaine 1% (10mg/ml) 2ml vial SQ ONE (09:10)
[2017-12-10] MEDS ORDERED: epoetin 20,000 units/ml inj IV ONE (09:10)
[2017-12-10] MEDS ORDERED: heparin 1,000 units/ml 10ml inj IV ONE (09:10)
[2017-12-10] MEDS ORDERED: normal saline 1000ml 100 ML IV PRN (09:44)
[2017-12-10] MEDS ORDERED: minoxidil 2.5mg tablet PO PRN (09:50)
[2017-12-10] MEDS: docusate sod 250mg capsule PO SCH (10:55)
[2017-12-10] MEDS ORDERED: polyethylene glycol 3350 17gm powd pack PO PRN (13:25)
[2017-12-10] MEDS: DOBUTamine 2000 MCG/250ML BAG IV SCH (15:35)
[2017-12-10] MEDS: cefepime 1GM/NS ADD-VANTAGE 100 ML IV SCH (19:05)
[2017-12-10] MEDS: docusate sodium 100mg/10ml UD cup PO SCH (21:22)
[2017-12-11] VITALS (24 sets, daily range): BP systolic 87–150; BP diastolic 50–77
[2017-12-11] MEDS: niCARDipine/sod cl 20mg/200ml 200 ML IV SCH ×6 (00:05→19:35)
[2017-12-11] MEDS: propofol 1000mg/100ml bottle 100 ML IV PRN ×3 (00:55→08:55)
[2017-12-11] MEDS: HYDROcodone/acetaminophen 10/325mg tab PO SCH ×4 (02:00→19:34)
[2017-12-11 02:17] LABS: BASOPHILS % (AUTO) 0.4 % (0-1); EOSINOPHILS # (AUTO) 0.4 X10'3 (0-0.9); EOSINOPHILS % (AUTO) 4.6 % (0-6); HEMATOCRIT 26.1 % (42.0-52.0); HEMOGLOBIN 8.6 g/dl (14.0-17.9); LYMPHOCYTES # (AUTO) 0.8 X10'3 (1.1-4.8); LYMPHOCYTES % (AUTO) 8.9 % (21-51); MEAN CORPUSCULAR HEMOGLOBIN 30.2 PG (27.0-31.0); MEAN CORPUSCULAR VOLUME 91.6 FL (78-98); MEAN PLATELET VOLUME 8.1 FL (7.4-10.4); MONOCYTES % (AUTO) 10.1 % (2-12); NEUTROPHILS # (AUTO) 7.2 X10'3 (1.8-7.7); PLATELET COUNT 168 X10'3 (140-440); RED BLOOD COUNT 2.85 X10'6 (4.70-6.10); RED CELL DISTRIBUTION WIDTH 17.7 % (11.5-14.5); WHITE BLOOD COUNT 9.5 X10'3 (4.5-11.0)
[2017-12-11 02:30] LABS: ABG BASE EXCESS 1.7 mmol/L (-2.0-3.0); ABG OXYGEN SATURATION 92.8 % (95-98); ABG PCO2 (T) 44.7 mmHg (35.0-48.0); ABG PH (T) 7.397 (7.350-7.450); ABG PO2 (T) 65.5 mmHg (83-108); ALLEN'S TEST Positive; FCOHb 0.3 % (0.5-1.5); FMetHb 0.3 % (0.3-1.12); FO2Hb 92.2 % (94-100); MINUTE VOLUME 10 L/min; PATIENT TEMPERATURE 36.6; PEEP 5 cm H2O; RESPIRATORY RATE (OBSERVED) 15 b/min; TOTAL HEMOGLOBIN 9.2 G/dl (14.0-18.0)
[2017-12-11] MEDS: VANCOMYCIN LEVEL IV SCH (02:30)
[2017-12-11] MEDS: ipratropium/albuterol 3ml nebule NEB SCH ×4 (02:32→21:14)
[2017-12-11 02:45] LABS: ALANINE AMINOTRANSFERASE 15 U/L (12-78); ALBUMIN 2.2 G/DL (3.4-5.0); ALBUMIN/GLOBULIN RATIO 0.6 (1.1-1.5); ALKALINE PHOSPHATASE 91 IU/L (46-116); ANION GAP 9 (8-16); ASPARTATE AMINO TRANSFERASE 38 U/L (10-37); BILIRUBIN,TOTAL 0.5 MG/DL (0.1-1.0); BLOOD UREA NITROGEN 30 MG/DL (7-18); BUN/CREATININE RATIO 5.2 (5.4-32.0); CALCIUM 8.2 MG/DL (8.5-10.1); CHLORIDE 98 MMOL/L (99-107); CREATININE 5.76 MG/DL (0.60-1.10); GLUCOSE 123 MG/DL (70-104); MAGNESIUM 1.9 MG/DL (1.5-2.4); PHOSPHORUS 4.9 MG/DL (2.3-4.5); POTASSIUM 3.8 MMOL/L (3.5-5.1); SODIUM 135 MMOL/L (135-145); TOTAL CARBON DIOXIDE 28.3 MMOL/L (24-32); TOTAL PROTEIN 5.8 G/DL (6.4-8.2); VANCOMYCIN,RANDOM 25.8 UG/ML; eGFR 10 ML/MIN
[2017-12-11] MEDS: ondansetron 4mg rapidly disintigrating tab PO SCH ×4 (08:00→23:28)
[2017-12-11] MEDS ORDERED: vancomycin/NS 1 GM ADD-VANTAGE 250 ML IV PRN (08:00)
[2017-12-11] MEDS: NIFEdipine XL 30mg tablet PO SCH ×2 (08:00→19:34)
[2017-12-11] MEDS: DOBUTamine 2000 MCG/250ML BAG IV SCH ×2 (08:25→10:18)
[2017-12-11] MEDS: pantoprazole 40 MG vial IV SCH (08:52)
[2017-12-11] MEDS: sevelamer carbonate 0.8gm powder pkt PO SCH ×4 (08:52→20:33)
[2017-12-11] MEDS: docusate sodium 100mg/10ml UD cup PO SCH ×2 (08:52→19:33)
[2017-12-11] MEDS: atorvastatin 20mg tablet PO SCH (08:53)
[2017-12-11] MEDS: aspirin 81mg tab.chew PO SCH (08:53)
[2017-12-11] MEDS: losartan 25mg tablet PO SCH ×2 (08:53→19:33)
[2017-12-11] MEDS: cloNIDine 0.1 mg tablet PO SCH ×3 (08:53→20:33)
[2017-12-11] MEDS: carVEDilol 12.5mg tablet PO SCH ×2 (08:54→19:34)
[2017-12-11] MEDS: clopidogrel 75mg tablet PO SCH (08:54)
[2017-12-11] MEDS: normal saline 1000ml 1,000 ML IV SCH (09:38)
[2017-12-11] MEDS ORDERED: NORMAL SALINE IV PRN (14:10)
[2017-12-11] MEDS ORDERED: VANCOMYCIN IV PRN (14:10)
[2017-12-11] MEDS: cefepime 1GM/NS ADD-VANTAGE 100 ML IV SCH (19:06)
[2017-12-11] MEDS: MIDAZolam 5mg/ml 2ml vial IV PRN (20:32)
[2017-12-12] VITALS (28 sets, daily range): BP systolic 93–168; BP diastolic 6–96
[2017-12-12] MEDS: niCARDipine/sod cl 20mg/200ml 200 ML IV SCH ×6 (00:03→20:05)
[2017-12-12] MEDS: HYDROcodone/acetaminophen 10/325mg tab PO SCH ×4 (02:13→19:57)
[2017-12-12] MEDS: DOBUTamine 2000 MCG/250ML BAG IV SCH ×2 (02:26→21:32)
[2017-12-12 02:57] LABS: BASOPHILS % (AUTO) 0.2 % (0-1); EOSINOPHILS # (AUTO) 0.7 X10'3 (0-0.9); EOSINOPHILS % (AUTO) 7.2 % (0-6); HEMATOCRIT 24.2 % (42.0-52.0); LYMPHOCYTES # (AUTO) 0.7 X10'3 (1.1-4.8); MEAN CORPUSCULAR HEMOGLOBIN 30.3 PG (27.0-31.0); MEAN CORPUSCULAR HGB CONC 32.9 % (33.0-36.5); MEAN CORPUSCULAR VOLUME 92.1 FL (78-98); MEAN PLATELET VOLUME 8.3 FL (7.4-10.4); MONOCYTES % (AUTO) 10.6 % (2-12); NEUTROPHILS # (AUTO) 6.8 X10'3 (1.8-7.7); PLATELET COUNT 151 X10'3 (140-440); RED BLOOD COUNT 2.63 X10'6 (4.70-6.10); RED CELL DISTRIBUTION WIDTH 17.4 % (11.5-14.5); WHITE BLOOD COUNT 9.2 X10'3 (4.5-11.0)
[2017-12-12] MEDS: ipratropium/albuterol 3ml nebule NEB SCH ×2 (02:59→09:00)
[2017-12-12] MEDS: VANCOMYCIN LEVEL IV SCH (03:00)
[2017-12-12 03:08] LABS: ALANINE AMINOTRANSFERASE 12 U/L (12-78); ALBUMIN 2.1 G/DL (3.4-5.0); ALBUMIN/GLOBULIN RATIO 0.6 (1.1-1.5); ALKALINE PHOSPHATASE 101 IU/L (46-116); ANION GAP 10 (8-16); ASPARTATE AMINO TRANSFERASE 21 U/L (10-37); BILIRUBIN,TOTAL 0.5 MG/DL (0.1-1.0); BLOOD UREA NITROGEN 47 MG/DL (7-18); BUN/CREATININE RATIO 6.6 (5.4-32.0); CALCIUM 8.5 MG/DL (8.5-10.1); CHLORIDE 96 MMOL/L (99-107); CREATININE 7.12 MG/DL (0.60-1.10); GLUCOSE 106 MG/DL (70-104); POTASSIUM 4.4 MMOL/L (3.5-5.1); PREALBUMIN 15.9 MG/DL (19-36); SODIUM 133 MMOL/L (135-145); TOTAL CARBON DIOXIDE 26.8 MMOL/L (24-32); TOTAL PROTEIN 5.6 G/DL (6.4-8.2); eGFR 8 ML/MIN
[2017-12-12 03:11] LABS: ABG BASE EXCESS 0.2 mmol/L (-2.0-3.0); ABG HCO3 25.1 mmol/L (22.0-26.0); ABG OXYGEN SATURATION 96.4 % (95-98); ABG PCO2 (T) 40.7 mmHg (35.0-48.0); ABG PH (T) 7.406 (7.350-7.450); ALLEN'S TEST Positive; FCOHb 0.9 % (0.5-1.5); FMetHb 0.3 % (0.3-1.12); FO2Hb 95.2 % (94-100); MINUTE VOLUME 10 L/min; PATIENT TEMPERATURE 36.6; PEEP 5 cm H2O; RESPIRATORY RATE (OBSERVED) 14 b/min; TOTAL HEMOGLOBIN 8.5 G/dl (14.0-18.0)
[2017-12-12] MEDS: MIDAZolam 5mg/ml 2ml vial IV PRN ×2 (04:08→08:19)
[2017-12-12] MEDS: NIFEdipine XL 30mg tablet PO SCH ×2 (08:00→19:58)
[2017-12-12] MEDS: losartan 25mg tablet PO SCH ×2 (08:17→19:57)
[2017-12-12] MEDS: aspirin 81mg tab.chew PO SCH (08:18)
[2017-12-12] MEDS: carVEDilol 12.5mg tablet PO SCH ×2 (08:18→19:57)
[2017-12-12] MEDS: cloNIDine 0.1 mg tablet PO SCH ×3 (08:18→21:21)
[2017-12-12] MEDS: clopidogrel 75mg tablet PO SCH (08:18)
[2017-12-12] MEDS: atorvastatin 20mg tablet PO SCH (08:19)
[2017-12-12] MEDS: ondansetron 4mg rapidly disintigrating tab PO SCH ×2 (08:19→17:09)
[2017-12-12] MEDS: pantoprazole 40 MG vial IV SCH (08:19)
[2017-12-12] MEDS: sevelamer carbonate 0.8gm powder pkt PO SCH ×4 (08:23→21:20)
[2017-12-12] MEDS: docusate sodium 100mg/10ml UD cup PO SCH ×2 (08:24→19:57)
[2017-12-12 13:30] LABS: PARTIAL THROMBOPLASTIN TIME 33 SECONDS (22-32); PROTHROMBIN TIME 10.2 SECONDS (9.0-12.0)
[2017-12-12] MEDS ORDERED: MIDAZolam 5mg/ml 2ml vial IV ONE (14:55)
[2017-12-12] MEDS: morphine 4 MG/ML inj SYRINge IV PRN (15:17)
[2017-12-12] MEDS: cefepime 1GM/NS ADD-VANTAGE 100 ML IV SCH (19:17)
[2017-12-13] VITALS (23 sets, daily range): BP systolic 92–128; BP diastolic 45–69
[2017-12-13] MEDS: niCARDipine/sod cl 20mg/200ml 200 ML IV SCH ×3 (00:05→08:05)
[2017-12-13] MEDS: HYDROcodone/acetaminophen 10/325mg tab PO SCH ×4 (01:59→20:00)
[2017-12-13] MEDS: VANCOMYCIN LEVEL IV SCH (03:00)
[2017-12-13 03:40] LABS: BASOPHILS % (AUTO) 0.4 % (0-1); EOSINOPHILS # (AUTO) 0.5 X10'3 (0-0.9); HEMATOCRIT 26.3 % (42.0-52.0); HEMOGLOBIN 9.1 g/dl (14.0-17.9); LYMPHOCYTES # (AUTO) 0.7 X10'3 (1.1-4.8); LYMPHOCYTES % (AUTO) 7.3 % (21-51); MEAN CORPUSCULAR HEMOGLOBIN 31.4 PG (27.0-31.0); MEAN CORPUSCULAR HGB CONC 34.4 % (33.0-36.5); MEAN CORPUSCULAR VOLUME 91.2 FL (78-98); MEAN PLATELET VOLUME 8.9 FL (7.4-10.4); MONOCYTES # (AUTO) 1.1 X10'3 (0-0.9); MONOCYTES % (AUTO) 11.3 % (2-12); NEUTROPHILS # (AUTO) 7.6 X10'3 (1.8-7.7); PLATELET COUNT 145 X10'3 (140-440); RED BLOOD COUNT 2.89 X10'6 (4.70-6.10); RED CELL DISTRIBUTION WIDTH 16.1 % (11.5-14.5); WHITE BLOOD COUNT 9.9 X10'3 (4.5-11.0)
[2017-12-13 03:52] LABS: ANION GAP 7 (8-16); BLOOD UREA NITROGEN 29 MG/DL (7-18); CALCIUM 9.2 MG/DL (8.5-10.1); CHLORIDE 98 MMOL/L (99-107); CREATININE 4.82 MG/DL (0.60-1.10); GLUCOSE 96 MG/DL (70-104); SODIUM 135 MMOL/L (135-145); TOTAL CARBON DIOXIDE 30.3 MMOL/L (24-32); eGFR 12 ML/MIN
[2017-12-13 03:53] LABS: ALANINE AMINOTRANSFERASE 18 U/L (12-78); ALBUMIN 2.2 G/DL (3.4-5.0); ALBUMIN/GLOBULIN RATIO 0.6 (1.1-1.5); ALKALINE PHOSPHATASE 107 IU/L (46-116); ASPARTATE AMINO TRANSFERASE 27 U/L (10-37); BILIRUBIN,TOTAL 0.8 MG/DL (0.1-1.0); MAGNESIUM 1.9 MG/DL (1.5-2.4); PHOSPHORUS 4.6 MG/DL (2.3-4.5); VANCOMYCIN,RANDOM 17.6 UG/ML
[2017-12-13] MEDS: sevelamer carbonate 0.8gm powder pkt PO SCH ×4 (07:45→21:16)
[2017-12-13] MEDS: aspirin 81mg tab.chew PO SCH (07:46)
[2017-12-13] MEDS: NIFEdipine XL 30mg tablet PO SCH ×2 (07:46→22:58)
[2017-12-13] MEDS: atorvastatin 20mg tablet PO SCH (07:47)
[2017-12-13] MEDS: losartan 25mg tablet PO SCH ×2 (07:48→20:00)
[2017-12-13] MEDS: clopidogrel 75mg tablet PO SCH (07:48)
[2017-12-13] MEDS: carVEDilol 12.5mg tablet PO SCH ×2 (07:48→20:24)
[2017-12-13] MEDS: docusate sodium 100mg/10ml UD cup PO SCH ×2 (07:48→20:24)
[2017-12-13] MEDS: pantoprazole 40 MG vial IV SCH (07:49)
[2017-12-13] MEDS: ondansetron 4mg rapidly disintigrating tab PO SCH ×3 (07:50→17:52)
[2017-12-13] MEDS ORDERED: methylnaltrexone br 12mg/0.6ml inj***SubQ only SQ SCH (08:00)
[2017-12-13] MEDS: cloNIDine 0.1 mg tablet PO SCH ×3 (09:50→21:16)
[2017-12-13] MEDS ORDERED: DOBUTamine-DoBUTrex 500mg/D5W 250 ML IV SCH ×2 (18:05→20:49)
[2017-12-13] MEDS: normal saline 1000ml 1,000 ML IV SCH (20:32)
[2017-12-13] MEDS ORDERED: gabapentin 100mg capsule PO PRN (21:00)
[2017-12-14] VITALS (17 sets, daily range): BP systolic 95–119; BP diastolic 48–74
[2017-12-14] MEDS: HYDROcodone/acetaminophen 10/325mg tab PO SCH ×3 (02:00→14:00)
[2017-12-14] MEDS: VANCOMYCIN LEVEL IV SCH (03:00)
[2017-12-14 03:09] LABS: BASOPHILS % (AUTO) 0.4 % (0-1); EOSINOPHILS # (AUTO) 0.4 X10'3 (0-0.9); EOSINOPHILS % (AUTO) 3.9 % (0-6); HEMOGLOBIN 8.3 g/dl (14.0-17.9); LYMPHOCYTES # (AUTO) 0.9 X10'3 (1.1-4.8); LYMPHOCYTES % (AUTO) 8.5 % (21-51); MEAN CORPUSCULAR HEMOGLOBIN 30.4 PG (27.0-31.0); MEAN CORPUSCULAR HGB CONC 33.2 % (33.0-36.5); MEAN CORPUSCULAR VOLUME 91.5 FL (78-98); MEAN PLATELET VOLUME 8.9 FL (7.4-10.4); MONOCYTES # (AUTO) 1.3 X10'3 (0-0.9); MONOCYTES % (AUTO) 11.7 % (2-12); NEUTROPHILS # (AUTO) 8.5 X10'3 (1.8-7.7); NEUTROPHILS % (AUTO) 75.5 % (42-75); PLATELET COUNT 190 X10'3 (140-440); RED BLOOD COUNT 2.74 X10'6 (4.70-6.10); RED CELL DISTRIBUTION WIDTH 17.5 % (11.5-14.5); WHITE BLOOD COUNT 11.2 X10'3 (4.5-11.0)
[2017-12-14 03:13] LABS: ALANINE AMINOTRANSFERASE 16 U/L (12-78); ALBUMIN 2.3 G/DL (3.4-5.0); ALBUMIN/GLOBULIN RATIO 0.6 (1.1-1.5); ALKALINE PHOSPHATASE 117 IU/L (46-116); ANION GAP 9 (8-16); ASPARTATE AMINO TRANSFERASE 19 U/L (10-37); BILIRUBIN,TOTAL 0.8 MG/DL (0.1-1.0); BLOOD UREA NITROGEN 39 MG/DL (7-18); CALCIUM 9.4 MG/DL (8.5-10.1); CHLORIDE 96 MMOL/L (99-107); CREATININE 6.46 MG/DL (0.60-1.10); GLUCOSE 97 MG/DL (70-104); MAGNESIUM 2.1 MG/DL (1.5-2.4); PHOSPHORUS 5.2 MG/DL (2.3-4.5); POTASSIUM 4.4 MMOL/L (3.5-5.1); SODIUM 135 MMOL/L (135-145); TOTAL CARBON DIOXIDE 29.9 MMOL/L (24-32); TOTAL PROTEIN 6.3 G/DL (6.4-8.2); VANCOMYCIN,RANDOM 16.3 UG/ML; eGFR 9 ML/MIN
[2017-12-14] MEDS: sevelamer carbonate 0.8gm powder pkt PO SCH ×2 (07:53→14:10)
[2017-12-14] MEDS: atorvastatin 20mg tablet PO SCH (07:53)
[2017-12-14] MEDS: aspirin 81mg tab.chew PO SCH (07:54)
[2017-12-14] MEDS: losartan 25mg tablet PO SCH (07:54)
[2017-12-14] MEDS: NIFEdipine XL 30mg tablet PO SCH (07:54)
[2017-12-14] MEDS: docusate sodium 100mg/10ml UD cup PO SCH (07:54)
[2017-12-14] MEDS: clopidogrel 75mg tablet PO SCH (07:55)
[2017-12-14] MEDS: carVEDilol 12.5mg tablet PO SCH (07:55)
[2017-12-14] MEDS: ondansetron 4mg rapidly disintigrating tab PO SCH ×2 (07:55)
[2017-12-14] MEDS: pantoprazole 40 MG vial IV SCH (07:55)
[2017-12-14] MEDS: cloNIDine 0.1 mg tablet PO SCH ×2 (08:00→13:00)
[2017-12-14] MEDS ORDERED: normal saline 1000ml 250 ML IV PRN (08:34)
[2017-12-14] MEDS ORDERED: LIDOcaine 1% (10mg/ml) 2ml vial SQ ONE (08:35)
[2017-12-14] MEDS ORDERED: vancomycin/NS 500MG ADD-VANT 100 ML IV PRN (11:15)
[2017-12-14] MEDS ORDERED: lactobacillus rhamnosus 10,000 MMU CELLS/CAPSULE PO SCH (20:00)
== END 2017-12-14 16:15 | disposition left against medical advice (07) | DRG 246 ==
LOC: ER 12:14 → ED HOLD 13:24 → MERGE 13:24 → CICU 2S 14:57
PROVIDERS: ADMIT Internal Medicine Critical Care Medicine; ATTEND Internal Medicine Critical Care Medicine
PROC: 5A1945Z Respiratory Ventilation, 24-96 Consecutive Hours (ICD-10-PCS; principal; 2017-12-08)
PROC: 0BH17EZ Insertion of Endotracheal Airway into Trachea, Via Natural or Artificial Opening (ICD-10-PCS; 2017-12-08)
PROC: 5A1D70Z Performance of Urinary Filtration, Intermittent, Less than 6 Hours Per Day (ICD-10-PCS; 2017-12-08)
PROC: 5A12012 Performance of Cardiac Output, Single, Manual (ICD-10-PCS; 2017-12-08)
PROC: 02HV33Z Insertion of Infusion Device into Superior Vena Cava, Percutaneous Approach (ICD-10-PCS; 2017-12-08)
PROC: 027034Z Dilation of Coronary Artery, One Artery with Drug-eluting Intraluminal Device, Percutaneous Approach (ICD-10-PCS; 2017-12-09)
PROC: 4A023N8 Measurement of Cardiac Sampling and Pressure, Bilateral, Percutaneous Approach (ICD-10-PCS; 2017-12-09)
PROC: B2111ZZ Fluoroscopy of Multiple Coronary Arteries using Low Osmolar Contrast (ICD-10-PCS; 2017-12-09)
PROC: B2151ZZ Fluoroscopy of Left Heart using Low Osmolar Contrast (ICD-10-PCS; 2017-12-09)
PROC: 5A1D70Z Performance of Urinary Filtration, Intermittent, Less than 6 Hours Per Day (ICD-10-PCS; 2017-12-10)
PROC: 5A1D70Z Performance of Urinary Filtration, Intermittent, Less than 6 Hours Per Day (ICD-10-PCS; 2017-12-12)
PROC: 30233N1 Transfusion of Nonautologous Red Blood Cells into Peripheral Vein, Percutaneous Approach (ICD-10-PCS; 2017-12-12)
PROC: 5A1D70Z Performance of Urinary Filtration, Intermittent, Less than 6 Hours Per Day (ICD-10-PCS; 2017-12-14)
DX: I21.09 ST elevation (STEMI) myocardial infarction involving other coronary artery of anterior wall (principal); J96.00 Acute respiratory failure, unspecified whether with hypoxia or hypercapnia; N18.6 End stage renal disease; R57.0 Cardiogenic shock; I42.9 Cardiomyopathy, unspecified; I12.0 Hypertensive chronic kidney disease with stage 5 chronic kidney disease or end stage renal disease; E87.70 Fluid overload, unspecified; E78.5 Hyperlipidemia, unspecified; I25.10 Atherosclerotic heart disease of native coronary artery without angina pectoris; J44.9 Chronic obstructive pulmonary disease, unspecified; F12.90 Cannabis use, unspecified, uncomplicated; F17.200 Nicotine dependence, unspecified, uncomplicated; Z53.21 Procedure and treatment not carried out due to patient leaving prior to being seen by health care provider; Z95.5 Presence of coronary angioplasty implant and graft; Z99.2 Dependence on renal dialysis; Z88.2 Allergy status to sulfonamides; Z88.6 Allergy status to analgesic agent; Z88.8 Allergy status to other drugs, medicaments and biological substances; Z80.3 Family history of malignant neoplasm of breast; Z71.6 Tobacco abuse counseling
CPT/HCPCS: 93306; 93460; C9600; 36415; 36600; 70450; 71045; 80053; 80061; 80202; 80305; 80320; 80329; 81001; 82140; 82803; 82810; 82948; 83605; 83735; 83880; 84100; 84132; 84134; 84439; 84443; 84484; 85014; 85018; 85025; 85027; 85347; 85379; 85610; 85730; 86885; 86900; 86901; 86920; 87040; 87070; 87077; 87186; 92616; 93005; 94002; 94003; 94640; 94668; 94760; 97116; 97162; 97530; A4310; A6257; C1725; C1769; C1874; C1894; C9113; G0257; G0378; J0360; J0692; J0885; J1250; J1644; J2250; J2270; J2704; J3370; J3490; J7030; P9016; P9047; Q9967

== ENCOUNTER 2018-01-20 05:46 | Inpatient (IN) | payer MEDICARE, MEDICAID ==
[~2018-01-20] VITALS: Ht 177.8 cm; Wt 93.1 kg
[2018-01-20] VITALS (14 sets, daily range): BP systolic 112–183; BP diastolic 59–92
[~2018-01-20 05:46] MED LIST changes: -0.9 % SODIUM CHLORIDE 10 ML VIAL ONE; +CLON-529 PO; +CYAN1TAB18 PO; +DOCU250C4 PO; +HYDR-4353 PO; +LOSA25TA96 PO; -LOSA50TA21 PO; +LOSA50TA64 PO; +MINO2.5T19 PO; +NIFE30TA88 PO; -NORepinephrine bitartrate 8 MG in NS 250 ML BAG (32 mcg/ml) IV ONE; +ONDA4TAB9 SL; -etomidate 2mg/ml inj. ONE; -rocuronium 10mg/ml inj IV ONE
--- NOTE | 2018-01-20 05:59 | NUR ---
PT brought into ER from parking lot in a wheelchair with SOB. EKG obtained, RT EJ started.
--- NOTE | 2018-01-20 06:00 | NUR ---
HR 127, BP 239/132, RR 30, O2 89%,
--- NOTE | 2018-01-20 06:05 | NUR ---
0601 PT PLACED ON BIPAP BY RESPIRATORY AND LABS DRAWN; 0604 HR 124, O2 90%, RR30, 227/129, 0605 2000 MCG NITRO
--- NOTE | 2018-01-20 06:08 | NUR ---
4000MCG NTG IV PUSH ADMINISTERED BY MD ESCUDERO BETWEEN 602 AND 607
[2018-01-20 06:10] LABS: ISTAT CREATININE 6.3 mg/dL (0.8-1.3); ISTAT HGB 13.9 g/dl (14.0-18.0); ISTAT IONIZED CALCIUM 1.26 mmol/L (1.03-1.32); ISTAT K 5.5 mmol/L (3.5-5.1); POC BUN/CREATININE RATIO 8.6 (5.4-32.0)
[2018-01-20 06:10] LABS: ABG BASE EXCESS -9.4 mmol/L (-2.0-3.0); ABG HCO3 23.7 mmol/L (22.0-26.0); ABG OXYGEN SATURATION 85.4 % (95-98); ABG PCO2 (T) 95.5 mmHg (35.0-48.0); ABG PH (T) 7.013 (7.350-7.450); ABG PO2 (T) 72.5 mmHg (83-108); ALLEN'S TEST Positive; FCOHb 6.4 % (0.5-1.5); FMetHb 0.3 % (0.3-1.12); FO2Hb 79.7 % (94-100); TOTAL HEMOGLOBIN 13.7 G/dl (14.0-18.0)
[2018-01-20] MEDS ORDERED: hydrALAZINE 20mg/ml inj. IV ONE (06:10)
--- NOTE | 2018-01-20 06:10 | NUR ---
2000 NTG IV PUSH ADMINISTERED BY MD ESCUDERO - BP CURRENTLY 197/110 Addendum: 01/20/18 at 0612 by STACIE UNITS ARE MCG
[2018-01-20] MEDS ORDERED: albuterol 2.5 MG/3 ML nebule ONE (06:12)
--- NOTE | 2018-01-20 06:15 | NUR ---
20MG HYDRALIZINE ADMIN BY LUTHER Gomez RN AND ANOTHER 2000MCG NTG ADMIN BY OHLFS
--- NOTE | 2018-01-20 06:17 | NUR ---
2000MCG NTG PUSHED BY MD PARKFS
[2018-01-20 06:19] LABS: BASOPHILS % (AUTO) 0.3 % (0-1); EOSINOPHILS # (AUTO) 0.4 X10'3 (0-0.9); EOSINOPHILS % (AUTO) 3.2 % (0-6); HEMATOCRIT 38.6 % (42.0-52.0); HEMOGLOBIN 12.6 g/dl (14.0-17.9); LYMPHOCYTES # (AUTO) 3.3 X10'3 (1.1-4.8); LYMPHOCYTES % (AUTO) 23.5 % (21-51); MEAN CORPUSCULAR HGB CONC 32.7 % (33.0-36.5); MEAN CORPUSCULAR VOLUME 91.8 FL (78-98); MEAN PLATELET VOLUME 7.9 FL (7.4-10.4); MONOCYTES # (AUTO) 0.9 X10'3 (0-0.9); MONOCYTES % (AUTO) 6.7 % (2-12); NEUTROPHILS # (AUTO) 9.2 X10'3 (1.8-7.7); NEUTROPHILS % (AUTO) 66.3 % (42-75); PLATELET COUNT 236 X10'3 (140-440); RED BLOOD COUNT 4.21 X10'6 (4.70-6.10); RED CELL DISTRIBUTION WIDTH 18.5 % (11.5-14.5); WHITE BLOOD COUNT 13.9 X10'3 (4.5-11.0)
--- NOTE | 2018-01-20 06:19 | NUR ---
PT NOT IMPROVING, PREPARING TO INTUBATE WITH 8.0 ET AND MAC 4 BLADE USING 70MG OF ROCURONIUM AND 20MG ETMOIDATE
--- NOTE | 2018-01-20 06:23 | NUR ---
70MG ROCURONIUM GIVEN FOLLOWED BY 20 MG ETOMIDATE AT 0623
[2018-01-20] MEDS ORDERED: rocuronium 10mg/ml inj IV ONE ×2 (06:25→09:00)
[2018-01-20] MEDS ORDERED: LORazepam 2 mg/ml vial ONE (06:25)
[2018-01-20] MEDS ORDERED: etomidate 2mg/ml inj. IV ONE (06:25)
--- NOTE | 2018-01-20 06:29 | NUR ---
ATIVAN [address] ESCUDERO. ORDERED AND GIVEN.
[2018-01-20] MEDS ORDERED: propofol 1000mg/100ml bottle 100 ML IV ONE (06:36)
[2018-01-20] MEDS ORDERED: levoFLOXACIN-Levaquin 500mg/D5 100 ML IV ONE (06:40)
[2018-01-20] MEDS ORDERED: vancomycin/NS 1 GM ADD-VANTAGE 250 ML IV ONE (06:40)
[2018-01-20 06:44] LABS: INR 1.1 INR; PARTIAL THROMBOPLASTIN TIME 33 SECONDS (22-32); PROTHROMBIN TIME 11.4 SECONDS (9.0-12.0)
[2018-01-20] MEDS ORDERED: niCARDipine/sod cl 20mg/200ml 200 ML IV ONE (06:45)
[2018-01-20 06:46] LABS: ALANINE AMINOTRANSFERASE 23 U/L (12-78); ALBUMIN 3.5 G/DL (3.4-5.0); ALBUMIN/GLOBULIN RATIO 0.7 (1.1-1.5); ALKALINE PHOSPHATASE 179 IU/L (46-116); ANION GAP 15 (8-16); ASPARTATE AMINO TRANSFERASE 18 U/L (10-37); BILIRUBIN,TOTAL 1.2 MG/DL (0.1-1.0); BLOOD UREA NITROGEN 60 MG/DL (7-18); BUN/CREATININE RATIO 8.2 (5.4-32.0); CALCIUM 9.9 MG/DL (8.5-10.1); CHLORIDE 101 MMOL/L (99-107); CREATININE 7.36 MG/DL (0.60-1.10); GLUCOSE 178 MG/DL (70-104); POTASSIUM 5.6 MMOL/L (3.5-5.1); SODIUM 140 MMOL/L (135-145); TOTAL CARBON DIOXIDE 23.9 MMOL/L (24-32); TOTAL PROTEIN 8.2 G/DL (6.4-8.2); eGFR 8 ML/MIN
[2018-01-20 07:22] LABS: ABG BASE EXCESS -5.1 mmol/L (-2.0-3.0); ABG HCO3 24.2 mmol/L (22.0-26.0); ABG OXYGEN SATURATION 98.2 % (95-98); ABG PCO2 (T) 65.8 mmHg (35.0-48.0); ABG PH (T) 7.183 (7.350-7.450); ALLEN'S TEST Positive; FCOHb 5.6 % (0.5-1.5); FMetHb 0.3 % (0.3-1.12); FO2Hb 92.4 % (94-100); MINUTE VOLUME 12 L/min; PEEP 5 cm H2O; RESPIRATORY RATE 22 b/min; TIDAL VOLUME 500 mL; TOTAL HEMOGLOBIN 12.6 G/dl (14.0-18.0)
[2018-01-20] MEDS ORDERED: acetaminophen 325mg tablet PO PRN ×2 (07:25)
[2018-01-20] MEDS ORDERED: ondansetron/PF 4mg/2ml inj IV PRN (07:25)
[2018-01-20] MEDS ORDERED: glucagon, human recombinant 1mg kit SUBCUT PRN (07:25)
[2018-01-20] MEDS ORDERED: dextrose 50%-water 50ml dispensing syringe IV PRN ×2 (07:25)
[2018-01-20] MEDS ORDERED: acetaminophen 650mg rectal suppository RC PRN (07:25)
--- NOTE | 2018-01-20 07:34 | NUR ---
Pts vent allarmed. RT at bedside. Determined that ET tube had a leak in it. Dr. Willson called to bedside for et tube exchange. ET tube was pulled out and Dr. Willson reintubated with an 8.0 ET tube at 0730. potitive color change, bilateral breath sounds, condensation in et tube. 22 at lip.
[2018-01-20] MEDS ORDERED: niCARDipine/sod cl 20mg/200ml 200 ML IV SCH (07:40)
--- NOTE | 2018-01-20 07:47 | NUR ---
Joshua funez applied for temp of 93.[address] Willson
--- NOTE | 2018-01-20 07:58 | NUR ---
Called [facility] for ordered cardene. the report that they needed to change the concentration and are unsure if it needs to come from them or in the medicaion dispencing system.
--- NOTE | 2018-01-20 07:59 | NUR ---
Repeat x-ray done. pt requires ct of the chest.
[2018-01-20] MEDS: folic acid/vitamin B complex w/vitamin C 0.8mg tablet PO SCH (08:00)
[2018-01-20] MEDS: folic acid 1mg tablet PO SCH (08:00)
[2018-01-20] MEDS: NIFEdipine XL 30mg tablet PO SCH ×2 (08:00→19:46)
[2018-01-20] MEDS: hydrALAZINE 25 MG tablet PO SCH ×3 (08:00→21:00)
[2018-01-20] MEDS: minoxidil 2.5mg tablet PO SCH ×2 (08:00→19:54)
[2018-01-20] MEDS: heparin, porcine 5000 units/ml vial SQ SCH ×2 (08:00→19:55)
[2018-01-20] MEDS: vitamin B comp w/Vit. C tab 1 TAB TABLET PO SCH (08:00)
[2018-01-20] MEDS: pantoprazole 40 MG vial IV SCH (08:00)
[2018-01-20] MEDS: losartan 50mg tablet PO SCH ×2 (08:00→19:52)
[2018-01-20] MEDS: docusate sodium 100mg/10ml UD cup PO SCH ×2 (08:00→19:43)
[2018-01-20] MEDS: cloNIDine 0.1 mg tablet PO SCH ×4 (08:00→21:00)
[2018-01-20] MEDS: carVEDilol 12.5mg tablet PO SCH ×2 (08:00→19:47)
[2018-01-20] MEDS: niCARDipine-NS 40mg/200ml IVPB 200 ML IV SCH ×4 (08:08→20:00)
[2018-01-20] MEDS ORDERED: normal saline 1000ml 250 ML IV PRN (08:18)
[2018-01-20] MEDS ORDERED: LIDOcaine 1% (10mg/ml) 2ml vial SQ ONE (08:20)
[2018-01-20] MEDS ORDERED: heparin 1,000 units/ml 10ml inj IV ONE (08:20)
[2018-01-20 08:28] LABS: URINE AMPHETAMINE SCREEN NEGATIVE (Neg); URINE BARBITUATE SCREEN NEGATIVE (Neg); URINE BENZODIAZEPINES SCREEN NEGATIVE (Neg); URINE CANNABINOID SCREEN NEGATIVE (Neg); URINE COCAINE SCREEN NEGATIVE (Neg); URINE METHADONE SCREEN NEGATIVE (Neg); URINE OPIATE SCREEN NEGATIVE (Neg); URINE PHENCYCLIDINE SCREEN NEGATIVE (Neg)
[2018-01-20] MEDS ORDERED: iohexol 300mg/ml 100ml inj. ONE (08:35)
--- NOTE | 2018-01-20 08:37 | NUR ---
Patient out to CT scan with RT
[2018-01-20] MEDS ORDERED: etomidate 2mg/ml inj. ONE (09:00)
[2018-01-20] MEDS ORDERED: nitroGLYCERIN in D5W 50mg/250ml (Tridil) infusion IV ONE (09:00)
[2018-01-20] MEDS ORDERED: nitroGLYCERIN 0.4mg SUBLingual tab SL ONE (09:00)
[2018-01-20] MEDS ORDERED: 0.9 % SODIUM CHLORIDE 10 ML VIAL ONE (09:00)
--- NOTE | 2018-01-20 10:10 | NUR ---
Received report from EVERT Shipley
--- NOTE | 2018-01-20 10:40 | NUR ---
Pt. arrived from ED via gurney with ED RN, respiratiory therapist, and computer systems technology instructor at side. Patient ventilated, on Cardizem and propofol gtt.
[2018-01-20] MEDS: ipratropium/albuterol 3ml nebule NEB SCH ×4 (10:46→23:06)
[2018-01-20] MEDS: midazolam 100mg in NS 100ml 100 ML IV PRN (12:33)
[2018-01-20] MEDS: FENTANYL-0.9 % NACL/PF 100 ML IV PRN (14:05)
[2018-01-20] MEDS ORDERED: docusate sod 250mg capsule PO PRN (16:40)
--- NOTE | 2018-01-20 18:30 | NUR ---
Patient in room ICU 2044. I have received report from EVERT oGel and had the opportunity to ask questions and assume patient care.
--- NOTE | 2018-01-20 18:33 | NUR ---
Problems reprioritized. Patient report given, questions answered & plan of care reviewed with Malorie.
[2018-01-20] MEDS: gabapentin 100mg capsule PO SCH (19:46)
[2018-01-20] MEDS: furosemide 40mg tablet PO SCH (19:49)
[2018-01-21] VITALS (24 sets, daily range): BP systolic 111–177; BP diastolic 62–92
[2018-01-21] MEDS: FENTANYL-0.9 % NACL/PF 100 ML IV PRN ×3 (00:54→23:36)
[2018-01-21] MEDS: midazolam 100mg in NS 100ml 100 ML IV PRN ×2 (01:33→23:36)
[2018-01-21 02:53] LABS: BASOPHILS % (AUTO) 0.7 % (0-1); EOSINOPHILS # (AUTO) 0.3 X10'3 (0-0.9); HEMATOCRIT 31.8 % (42.0-52.0); HEMOGLOBIN 10.4 g/dl (14.0-17.9); LYMPHOCYTES # (AUTO) 1.1 X10'3 (1.1-4.8); LYMPHOCYTES % (AUTO) 18.1 % (21-51); MEAN CORPUSCULAR HEMOGLOBIN 29.5 PG (27.0-31.0); MEAN CORPUSCULAR HGB CONC 32.6 % (33.0-36.5); MEAN CORPUSCULAR VOLUME 90.7 FL (78-98); MEAN PLATELET VOLUME 7.9 FL (7.4-10.4); MONOCYTES # (AUTO) 0.6 X10'3 (0-0.9); NEUTROPHILS # (AUTO) 3.9 X10'3 (1.8-7.7); NEUTROPHILS % (AUTO) 66.2 % (42-75); PLATELET COUNT 167 X10'3 (140-440); RED BLOOD COUNT 3.51 X10'6 (4.70-6.10); RED CELL DISTRIBUTION WIDTH 17.5 % (11.5-14.5); WHITE BLOOD COUNT 5.9 X10'3 (4.5-11.0)
[2018-01-21 03:03] LABS: INR 1.2 INR; PROTHROMBIN TIME 11.7 SECONDS (9.0-12.0)
[2018-01-21 03:04] LABS: PARTIAL THROMBOPLASTIN TIME 35 SECONDS (22-32)
[2018-01-21 03:09] LABS: ALANINE AMINOTRANSFERASE 16 U/L (12-78); ALBUMIN 2.6 G/DL (3.4-5.0); ALBUMIN/GLOBULIN RATIO 0.7 (1.1-1.5); ALKALINE PHOSPHATASE 135 IU/L (46-116); ANION GAP 12 (8-16); ASPARTATE AMINO TRANSFERASE 14 U/L (10-37); BILIRUBIN,TOTAL 0.9 MG/DL (0.1-1.0); BLOOD UREA NITROGEN 29 MG/DL (7-18); BUN/CREATININE RATIO 6.3 (5.4-32.0); CHLORIDE 99 MMOL/L (99-107); CREATININE 4.59 MG/DL (0.60-1.10); GLUCOSE 80 MG/DL (70-104); MAGNESIUM 2.1 MG/DL (1.5-2.4); PHOSPHORUS 4.3 MG/DL (2.3-4.5); SODIUM 139 MMOL/L (135-145); TOTAL CARBON DIOXIDE 27.7 MMOL/L (24-32); TOTAL PROTEIN 6.2 G/DL (6.4-8.2); eGFR 13 ML/MIN
[2018-01-21] MEDS: ipratropium/albuterol 3ml nebule NEB SCH ×6 (03:24→23:15)
[2018-01-21] MEDS: niCARDipine-NS 40mg/200ml IVPB 200 ML IV SCH ×4 (04:00→11:44)
[2018-01-21 04:21] LABS: ABG BASE EXCESS 3.6 mmol/L (-2.0-3.0); ABG HCO3 27.8 mmol/L (22.0-26.0); ABG PCO2 (T) 40.7 mmHg (35.0-48.0); ABG PH (T) 7.452 (7.350-7.450); ABG PO2 (T) 65.4 mmHg (83-108); ALLEN'S TEST Positive; FCOHb 1.7 % (0.5-1.5); FMetHb 0.3 % (0.3-1.12); FO2Hb 91.1 % (94-100); MINUTE VOLUME 12 L/min; PEEP 5 cm H2O; RESPIRATORY RATE 22 b/min; RESPIRATORY RATE (OBSERVED) 22 b/min; TIDAL VOLUME 500 mL; TOTAL HEMOGLOBIN 11.1 G/dl (14.0-18.0)
--- NOTE | 2018-01-21 06:25 | NUR ---
Problems reprioritized. Patient report given, questions answered & plan of care reviewed with EVERT Carmona.
[2018-01-21] MEDS: heparin, porcine 5000 units/ml vial SQ SCH ×2 (08:00→21:00)
[2018-01-21] MEDS ORDERED: levoFLOXACIN-Levaquin 500mg/D5 100 ML IV SCH (08:00)
[2018-01-21] MEDS: pantoprazole 40 MG vial IV SCH (08:33)
[2018-01-21] MEDS: gabapentin 100mg capsule PO SCH ×2 (08:33→20:59)
[2018-01-21] MEDS: docusate sodium 100mg/10ml UD cup PO SCH ×2 (08:33→20:59)
[2018-01-21] MEDS: furosemide 40mg tablet PO SCH (08:33)
[2018-01-21] MEDS: folic acid 1mg tablet PO SCH (08:34)
[2018-01-21] MEDS: hydrALAZINE 25 MG tablet PO SCH ×3 (08:34→20:59)
[2018-01-21] MEDS: folic acid/vitamin B complex w/vitamin C 0.8mg tablet PO SCH (08:34)
[2018-01-21] MEDS: losartan 50mg tablet PO SCH ×2 (08:34→20:59)
[2018-01-21] MEDS: cloNIDine 0.1 mg tablet PO SCH ×3 (08:34→20:58)
[2018-01-21] MEDS: carVEDilol 12.5mg tablet PO SCH ×2 (08:34→20:57)
[2018-01-21] MEDS: NIFEdipine XL 30mg tablet PO SCH ×3 (08:34→20:59)
[2018-01-21] MEDS: mineral oil/petrolatum ophthal oint EACHEYE SCH ×3 (08:35→20:00)
[2018-01-21] MEDS: minoxidil 2.5mg tablet PO SCH ×2 (08:38→20:58)
[2018-01-21] MEDS: vitamin B comp w/Vit. C tab 1 TAB TABLET PO SCH (08:38)
--- NOTE | 2018-01-21 09:25 | NUR ---
0871 - Pt awake and following commands on SBT. During this time with him in the room he kicks me twice. Pt is informed this behavior is not appropriate to which he begins mouthing words around the ETT, and attempting to kick me several more times. Pt informed he will be placed in 3-pt restraints if this behavior does not cease, he mouths more words and attempts to kick again. Pt placed in 3-pt restraints. Will notify MD and monitor. 7838 - Dr Pritchett at , verbal orders to start Precedex, wean off versed, and titrate Fentanyl up. Also informed of pt behavior.
[2018-01-21] MEDS: dexmedetomidin/NS 400mcg/100ml 100 ML IV SCH ×2 (10:33→17:57)
[2018-01-21] MEDS: dextrose 5%-1/2 normal saline 1,000 ML IV SCH (14:02)
--- NOTE | 2018-01-21 16:12 | NUR ---
TF consult: Pt admitted to ICU and intubated. Per MD notes pt received HD with 4L off. Recommend continuous TF of Vital High Protein with goal rate of 80 mL/hr to provide total volume of 1920 mL/day, 1920 kcal, 168 g protein, and 1605 mL water. Additional water flushes per MD as pt with ESRD on HD. Will continue to follow and monitor tolerance to TF. Recommendations: 1) continuous TF of Vital High Protein to begin at 20 mL/hr and advance by 20 mL q 8 hours to goal rate of 80 mL/hr 2) Prealbumin q M/ 3) Daily wt 4) BSS following extubation for appropriate texture with diet advancement 5) Following extubation advance diet to Renal heart healthy as medically indicated Addendum: 01/21/18 at [address] Amended: Links added.
--- NOTE | 2018-01-21 18:30 | NUR ---
Patient in room ICU 2044. I have received report from Mathew LOYD and had the opportunity to ask questions and assume patient care.
[2018-01-22] VITALS (24 sets, daily range): BP systolic 81–139; BP diastolic 50–76
[2018-01-22] MEDS: dexmedetomidin/NS 400mcg/100ml 100 ML IV SCH ×4 (01:39→23:26)
[2018-01-22 02:35] LABS: BASOPHILS # (AUTO) 0.1 X10'3 (0-0.2); EOSINOPHILS # (AUTO) 0.4 X10'3 (0-0.9); EOSINOPHILS % (AUTO) 6.8 % (0-6); HEMOGLOBIN 9.8 g/dl (14.0-17.9); LYMPHOCYTES # (AUTO) 1.1 X10'3 (1.1-4.8); LYMPHOCYTES % (AUTO) 18.3 % (21-51); MEAN CORPUSCULAR HEMOGLOBIN 29.4 PG (27.0-31.0); MEAN CORPUSCULAR HGB CONC 32.7 % (33.0-36.5); MEAN CORPUSCULAR VOLUME 90.1 FL (78-98); MEAN PLATELET VOLUME 8.1 FL (7.4-10.4); MONOCYTES # (AUTO) 0.6 X10'3 (0-0.9); MONOCYTES % (AUTO) 10.3 % (2-12); NEUTROPHILS # (AUTO) 3.9 X10'3 (1.8-7.7); NEUTROPHILS % (AUTO) 63.6 % (42-75); PLATELET COUNT 178 X10'3 (140-440); RED BLOOD COUNT 3.33 X10'6 (4.70-6.10); RED CELL DISTRIBUTION WIDTH 17.1 % (11.5-14.5); WHITE BLOOD COUNT 6.2 X10'3 (4.5-11.0)
[2018-01-22] MEDS: mineral oil/petrolatum ophthal oint EACHEYE SCH ×4 (02:45→19:53)
[2018-01-22 02:53] LABS: ALANINE AMINOTRANSFERASE 12 U/L (12-78); ALBUMIN 2.4 G/DL (3.4-5.0); ALBUMIN/GLOBULIN RATIO 0.7 (1.1-1.5); ALKALINE PHOSPHATASE 116 IU/L (46-116); ANION GAP 7 (8-16); ASPARTATE AMINO TRANSFERASE 7 U/L (10-37); BILIRUBIN,TOTAL 0.7 MG/DL (0.1-1.0); BLOOD UREA NITROGEN 40 MG/DL (7-18); BUN/CREATININE RATIO 6.2 (5.4-32.0); CALCIUM 8.9 MG/DL (8.5-10.1); CHLORIDE 99 MMOL/L (99-107); GLUCOSE 92 MG/DL (70-104); MAGNESIUM 2.2 MG/DL (1.5-2.4); PHOSPHORUS 6.2 MG/DL (2.3-4.5); POTASSIUM 4.8 MMOL/L (3.5-5.1); SODIUM 135 MMOL/L (135-145); TOTAL CARBON DIOXIDE 28.7 MMOL/L (24-32); eGFR 9 ML/MIN
[2018-01-22] MEDS: ipratropium/albuterol 3ml nebule NEB SCH ×6 (02:53→23:12)
[2018-01-22 03:06] LABS: ABG BASE EXCESS 1.7 mmol/L (-2.0-3.0); ABG HCO3 27.2 mmol/L (22.0-26.0); ABG OXYGEN SATURATION 95.1 % (95-98); ABG PCO2 (T) 46.4 mmHg (35.0-48.0); ABG PH (T) 7.386 (7.350-7.450); ABG PO2 (T) 79.9 mmHg (83-108); ALLEN'S TEST Positive; FMetHb 0.3 % (0.3-1.12); FO2Hb 93.9 % (94-100); MINUTE VOLUME 9 L/min; PATIENT TEMPERATURE 37.1; PEEP 8 cm H2O; RESPIRATORY RATE 18 b/min; RESPIRATORY RATE (OBSERVED) 18 b/min; TIDAL VOLUME 450 mL
[2018-01-22 03:19] LABS: PROTHROMBIN TIME 11.4 SECONDS (9.0-12.0)
[2018-01-22 03:20] LABS: INR 1.1 INR; PARTIAL THROMBOPLASTIN TIME 36 SECONDS (22-32)
--- NOTE | 2018-01-22 06:26 | NUR ---
Problems reprioritized. Patient report given, questions answered & plan of care reviewed with Vanessa LOYD.
[2018-01-22] MEDS: NIFEdipine XL 30mg tablet PO SCH ×2 (07:09→19:54)
[2018-01-22] MEDS: docusate sodium 100mg/10ml UD cup PO SCH ×2 (07:09→19:53)
[2018-01-22] MEDS: pantoprazole 40 MG vial IV SCH (07:10)
[2018-01-22] MEDS: carVEDilol 12.5mg tablet PO SCH ×2 (07:10→19:53)
[2018-01-22] MEDS: heparin, porcine 5000 units/ml vial SQ SCH ×2 (07:10→19:53)
[2018-01-22] MEDS: minoxidil 2.5mg tablet PO SCH ×2 (07:10→19:53)
[2018-01-22] MEDS: vitamin B comp w/Vit. C tab 1 TAB TABLET PO SCH (07:10)
[2018-01-22] MEDS: cloNIDine 0.1 mg tablet PO SCH ×3 (07:11→22:28)
[2018-01-22] MEDS: gabapentin 100mg capsule PO SCH ×2 (07:11→19:53)
[2018-01-22] MEDS: levoFLOXACIN-Levaquin 250mg/D5 50 ML IV SCH (07:11)
[2018-01-22] MEDS: folic acid 1mg tablet PO SCH (07:11)
[2018-01-22] MEDS: losartan 50mg tablet PO SCH ×2 (07:11→19:53)
[2018-01-22] MEDS: hydrALAZINE 25 MG tablet PO SCH ×3 (07:13→22:28)
[2018-01-22] MEDS: folic acid/vitamin B complex w/vitamin C 0.8mg tablet PO SCH (07:17)
[2018-01-22] MEDS ORDERED: lactulose 20gm/30ml cup PO PRN (07:25)
[2018-01-22] MEDS: dextrose 5%-1/2 normal saline 1,000 ML IV SCH (10:14)
[2018-01-22] MEDS: FENTANYL-0.9 % NACL/PF 100 ML IV PRN ×2 (10:19→17:07)
[2018-01-22] MEDS ORDERED: levoFLOXACIN 250mg tablet PO SCH (11:00)
--- NOTE | 2018-01-22 18:30 | NUR ---
Patient in room ICU 2044. I have received report from Vanessa LOYD and had the opportunity to ask questions and assume patient care.
[2018-01-23] VITALS (24 sets, daily range): BP systolic 73–141; BP diastolic 49–62
[2018-01-23] MEDS: FENTANYL-0.9 % NACL/PF 100 ML IV PRN ×3 (00:17→18:42)
[2018-01-23] MEDS: mineral oil/petrolatum ophthal oint EACHEYE SCH ×4 (02:34→20:31)
[2018-01-23] MEDS: ipratropium/albuterol 3ml nebule NEB SCH ×6 (02:47→23:17)
[2018-01-23 02:53] LABS: BASOPHILS % (AUTO) 0.5 % (0-1); EOSINOPHILS # (AUTO) 0.5 X10'3 (0-0.9); EOSINOPHILS % (AUTO) 7.6 % (0-6); HEMATOCRIT 30.1 % (42.0-52.0); HEMOGLOBIN 9.6 g/dl (14.0-17.9); LYMPHOCYTES % (AUTO) 16.7 % (21-51); MEAN CORPUSCULAR HEMOGLOBIN 28.9 PG (27.0-31.0); MEAN CORPUSCULAR HGB CONC 31.8 % (33.0-36.5); MEAN CORPUSCULAR VOLUME 90.8 FL (78-98); MEAN PLATELET VOLUME 8.3 FL (7.4-10.4); MONOCYTES # (AUTO) 0.6 X10'3 (0-0.9); MONOCYTES % (AUTO) 10.5 % (2-12); NEUTROPHILS % (AUTO) 64.7 % (42-75); PLATELET COUNT 186 X10'3 (140-440); RED BLOOD COUNT 3.32 X10'6 (4.70-6.10); RED CELL DISTRIBUTION WIDTH 16.7 % (11.5-14.5); WHITE BLOOD COUNT 6.1 X10'3 (4.5-11.0)
[2018-01-23 03:04] LABS: ALANINE AMINOTRANSFERASE 11 U/L (12-78); ALBUMIN 2.4 G/DL (3.4-5.0); ALBUMIN/GLOBULIN RATIO 0.6 (1.1-1.5); ALKALINE PHOSPHATASE 118 IU/L (46-116); ANION GAP 12 (8-16); ASPARTATE AMINO TRANSFERASE 7 U/L (10-37); BILIRUBIN,TOTAL 0.5 MG/DL (0.1-1.0); BLOOD UREA NITROGEN 52 MG/DL (7-18); BUN/CREATININE RATIO 6.7 (5.4-32.0); CALCIUM 8.6 MG/DL (8.5-10.1); CHLORIDE 98 MMOL/L (99-107); GLUCOSE 125 MG/DL (70-104); MAGNESIUM 2.3 MG/DL (1.5-2.4); PHOSPHORUS 7.8 MG/DL (2.3-4.5); POTASSIUM 5.2 MMOL/L (3.5-5.1); PREALBUMIN 17.2 MG/DL (19-36); SODIUM 135 MMOL/L (135-145); TOTAL PROTEIN 6.1 G/DL (6.4-8.2); eGFR 7 ML/MIN
[2018-01-23 03:23] LABS: INR 1.1 INR; PARTIAL THROMBOPLASTIN TIME 32 SECONDS (22-32)
[2018-01-23 04:26] LABS: ABG BASE EXCESS -0.6 mmol/L (-2.0-3.0); ABG HCO3 24.4 mmol/L (22.0-26.0); ABG OXYGEN SATURATION 96.1 % (95-98); ABG PH (T) 7.376 (7.350-7.450); ALLEN'S TEST Positive; FCOHb 0.5 % (0.5-1.5); FMetHb 0.1 % (0.3-1.12); FO2Hb 95.5 % (94-100); PATIENT TEMPERATURE 37.7; PEEP 8 cm H2O; RESPIRATORY RATE 18 b/min; TIDAL VOLUME 450 mL; TOTAL HEMOGLOBIN 10.9 G/dl (14.0-18.0)
[2018-01-23] MEDS: dextrose 5%-1/2 normal saline 1,000 ML IV SCH (05:45)
--- NOTE | 2018-01-23 06:15 | NUR ---
Patient in room ICU 2044. I have received report from EVERT Gerber and had the opportunity to ask questions and assume patient care.
--- NOTE | 2018-01-23 06:33 | NUR ---
Problems reprioritized. Patient report given, questions answered & plan of care reviewed with Fran RN.
[2018-01-23] MEDS: folic acid/vitamin B complex w/vitamin C 0.8mg tablet PO SCH (07:32)
[2018-01-23] MEDS: pantoprazole 40 MG vial IV SCH (07:32)
[2018-01-23] MEDS: docusate sodium 100mg/10ml UD cup PO SCH ×2 (07:32→20:31)
[2018-01-23] MEDS: folic acid 1mg tablet PO SCH (07:33)
[2018-01-23] MEDS: NIFEdipine XL 30mg tablet PO SCH (07:33)
[2018-01-23] MEDS: carVEDilol 12.5mg tablet PO SCH ×2 (07:34→20:30)
[2018-01-23] MEDS: minoxidil 2.5mg tablet PO SCH ×2 (07:34→20:30)
[2018-01-23] MEDS: cloNIDine 0.1 mg tablet PO SCH ×3 (07:34→20:30)
[2018-01-23] MEDS: gabapentin 100mg capsule PO SCH ×2 (07:34→20:30)
[2018-01-23] MEDS: hydrALAZINE 25 MG tablet PO SCH ×3 (07:34→20:30)
[2018-01-23] MEDS: heparin, porcine 5000 units/ml vial SQ SCH ×2 (07:35→20:31)
[2018-01-23] MEDS: losartan 50mg tablet PO SCH ×2 (07:35→20:32)
[2018-01-23] MEDS: vitamin B comp w/Vit. C tab 1 TAB TABLET PO SCH (07:35)
[2018-01-23] MEDS ORDERED: NORepinephrine 8mg/ 250ml NS 250 ML IV SCH (08:35)
[2018-01-23] MEDS ORDERED: NORepinephrine 8mg/ 250ml NS 250 ML IV ONE (08:39)
[2018-01-23] MEDS: dexmedetomidin/NS 400mcg/100ml 100 ML IV SCH ×3 (08:49→20:33)
--- NOTE | 2018-01-23 14:03 | NUR ---
reassessment: Pt tolerating TF at goal. Hx cirrhosis and ESRD on HD today per MD. Abdomen large but unsure if ascites vs constipation since no BM yet. Will continue to monitor for TF tolerance. Recommendations: 1) continuous TF of Vital High Protein to begin at 20 mL/hr and advance by 20 mL q 8 hours to goal rate of 80 mL/hr 2) Additional water flush per MD 3) Prealbumin q / 4) Daily wt 5) BSS following extubation for appropriate texture with diet advancement 6) Following extubation advance diet to Renal heart healthy as medically indicated Addendum: 01/23/18 at [address] Amended: Links added.
[2018-01-23] MEDS: lactobacillus rhamnosus 10,000 MMU CELLS/CAPSULE PO SCH (20:30)
[2018-01-24] VITALS (22 sets, daily range): BP systolic 105–153; BP diastolic 49–82
[2018-01-24] MEDS: dextrose 5%-1/2 normal saline 1,000 ML IV SCH ×2 (01:45→21:45)
[2018-01-24] MEDS: mineral oil/petrolatum ophthal oint EACHEYE SCH ×4 (02:00→20:00)
[2018-01-24] MEDS: midazolam 100mg in NS 100ml 100 ML IV PRN (02:29)
[2018-01-24] MEDS: ipratropium/albuterol 3ml nebule NEB SCH ×3 (03:16→11:18)
[2018-01-24 03:28] LABS: BASOPHILS % (AUTO) 0.4 % (0-1); EOSINOPHILS # (AUTO) 0.4 X10'3 (0-0.9); EOSINOPHILS % (AUTO) 6.7 % (0-6); HEMATOCRIT 30.4 % (42.0-52.0); HEMOGLOBIN 9.9 g/dl (14.0-17.9); LYMPHOCYTES # (AUTO) 0.8 X10'3 (1.1-4.8); LYMPHOCYTES % (AUTO) 12.7 % (21-51); MEAN CORPUSCULAR HEMOGLOBIN 29.5 PG (27.0-31.0); MEAN CORPUSCULAR HGB CONC 32.7 % (33.0-36.5); MEAN CORPUSCULAR VOLUME 90.4 FL (78-98); MEAN PLATELET VOLUME 8.3 FL (7.4-10.4); MONOCYTES # (AUTO) 0.8 X10'3 (0-0.9); NEUTROPHILS # (AUTO) 4.4 X10'3 (1.8-7.7); NEUTROPHILS % (AUTO) 68.2 % (42-75); PLATELET COUNT 198 X10'3 (140-440); RED BLOOD COUNT 3.37 X10'6 (4.70-6.10); RED CELL DISTRIBUTION WIDTH 16.9 % (11.5-14.5); WHITE BLOOD COUNT 6.4 X10'3 (4.5-11.0)
[2018-01-24 03:43] LABS: ALANINE AMINOTRANSFERASE 11 U/L (12-78); ALBUMIN 2.3 G/DL (3.4-5.0); ALBUMIN/GLOBULIN RATIO 0.6 (1.1-1.5); ALKALINE PHOSPHATASE 137 IU/L (46-116); ANION GAP 11 (8-16); ASPARTATE AMINO TRANSFERASE 10 U/L (10-37); BILIRUBIN,TOTAL 0.5 MG/DL (0.1-1.0); BLOOD UREA NITROGEN 42 MG/DL (7-18); BUN/CREATININE RATIO 7.2 (5.4-32.0); CALCIUM 9.2 MG/DL (8.5-10.1); CHLORIDE 98 MMOL/L (99-107); CREATININE 5.82 MG/DL (0.60-1.10); GLUCOSE 123 MG/DL (70-104); MAGNESIUM 2.2 MG/DL (1.5-2.4); POTASSIUM 4.4 MMOL/L (3.5-5.1); SODIUM 137 MMOL/L (135-145); TOTAL CARBON DIOXIDE 28.1 MMOL/L (24-32); TOTAL PROTEIN 6.2 G/DL (6.4-8.2); eGFR 10 ML/MIN
[2018-01-24 03:47] LABS: PROTHROMBIN TIME 10.8 SECONDS (9.0-12.0)
[2018-01-24 03:48] LABS: INR 1.1 INR; PARTIAL THROMBOPLASTIN TIME 35 SECONDS (22-32)
[2018-01-24 04:05] LABS: ABG BASE EXCESS 1.9 mmol/L (-2.0-3.0); ABG HCO3 26.6 mmol/L (22.0-26.0); ABG OXYGEN SATURATION 94.4 % (95-98); ABG PCO2 (T) 43.1 mmHg (35.0-48.0); ABG PH (T) 7.411 (7.350-7.450); ABG PO2 (T) 76.3 mmHg (83-108); ALLEN'S TEST Positive; FCOHb 0.9 % (0.5-1.5); FMetHb 0.3 % (0.3-1.12); FO2Hb 93.3 % (94-100); MINUTE VOLUME 8 L/min; PATIENT TEMPERATURE 37.6; PEEP 5 cm H2O; RESPIRATORY RATE 18 b/min; RESPIRATORY RATE (OBSERVED) 18 b/min; TIDAL VOLUME 450 mL
[2018-01-24] MEDS: FENTANYL-0.9 % NACL/PF 100 ML IV PRN (05:03)
[2018-01-24] MEDS: dexmedetomidin/NS 400mcg/100ml 100 ML IV SCH ×3 (05:04→17:23)
--- NOTE | 2018-01-24 06:15 | NUR ---
Patient in room ICU 2044. I have received report from EVERT Gerber and had the opportunity to ask questions and assume patient care.
--- NOTE | 2018-01-24 06:32 | NUR ---
Problems reprioritized. Patient report given, questions answered & plan of care reviewed with Fran RN.
[2018-01-24] MEDS: docusate sodium 100mg/10ml UD cup PO SCH ×2 (07:26→20:00)
[2018-01-24] MEDS: pantoprazole 40 MG vial IV SCH (07:26)
[2018-01-24] MEDS: heparin, porcine 5000 units/ml vial SQ SCH ×2 (07:27→21:01)
[2018-01-24] MEDS: minoxidil 2.5mg tablet PO SCH ×2 (07:27→21:00)
[2018-01-24] MEDS: levoFLOXACIN-Levaquin 250mg/D5 50 ML IV SCH (07:27)
[2018-01-24] MEDS: vitamin B comp w/Vit. C tab 1 TAB TABLET PO SCH (07:27)
[2018-01-24] MEDS: folic acid/vitamin B complex w/vitamin C 0.8mg tablet PO SCH (07:28)
[2018-01-24] MEDS: folic acid 1mg tablet PO SCH (07:28)
[2018-01-24] MEDS: hydrALAZINE 25 MG tablet PO SCH ×3 (07:28→21:00)
[2018-01-24] MEDS: losartan 50mg tablet PO SCH ×2 (07:28→21:00)
[2018-01-24] MEDS: carVEDilol 12.5mg tablet PO SCH ×2 (07:28→20:59)
[2018-01-24] MEDS: lactobacillus rhamnosus 10,000 MMU CELLS/CAPSULE PO SCH ×2 (07:28→20:00)
[2018-01-24] MEDS: gabapentin 100mg capsule PO SCH ×2 (07:28→21:00)
[2018-01-24] MEDS: cloNIDine 0.1 mg tablet PO SCH ×3 (07:28→21:00)
[2018-01-24] MEDS: nicotine 21mg patch - 24 hr TD SCH (10:55)
--- NOTE | 2018-01-24 15:00 | NUR ---
Rt at bedside. Orders from Dr. Mars to extubate. RT extubated and patient on 2L NC. Will continue to monitor.
--- NOTE | 2018-01-24 17:00 | NUR ---
Pt is waking up from sedation. Pt is very angry and threatening to call the oyster buyer if RN will not let him go. Pt reoriented to time and situation. Pt states he has rights and his right is to leave. Son called (Kareem) and situation explained. Son will come to bedside this evening. Pt pulling at lines and refuses to wear his spo2 monitor. He has tried to spit on RN. Pt well aware of rules at hospital. Dr. Mars notified. Will continue to monitor.
--- NOTE | 2018-01-24 18:07 | NUR ---
Problems reprioritized. Patient report given, questions answered & plan of care reviewed with EVERT Gerber.
[2018-01-25] VITALS (20 sets, daily range): BP systolic 93–152; BP diastolic 57–69
[2018-01-25] MEDS: dexmedetomidin/NS 400mcg/100ml 100 ML IV SCH ×2 (00:26→07:15)
[2018-01-25] MEDS: mineral oil/petrolatum ophthal oint EACHEYE SCH ×3 (01:09→14:00)
[2018-01-25 02:01] LABS: BASOPHILS % (AUTO) 0.3 % (0-1); EOSINOPHILS # (AUTO) 0.4 X10'3 (0-0.9); EOSINOPHILS % (AUTO) 5.3 % (0-6); LYMPHOCYTES # (AUTO) 1.1 X10'3 (1.1-4.8); LYMPHOCYTES % (AUTO) 13.3 % (21-51); MEAN CORPUSCULAR HEMOGLOBIN 29.9 PG (27.0-31.0); MEAN CORPUSCULAR HGB CONC 33.3 % (33.0-36.5); MEAN CORPUSCULAR VOLUME 89.7 FL (78-98); MEAN PLATELET VOLUME 7.9 FL (7.4-10.4); MONOCYTES # (AUTO) 0.8 X10'3 (0-0.9); MONOCYTES % (AUTO) 9.5 % (2-12); NEUTROPHILS % (AUTO) 71.6 % (42-75); PLATELET COUNT 214 X10'3 (140-440); RED BLOOD COUNT 3.34 X10'6 (4.70-6.10); RED CELL DISTRIBUTION WIDTH 16.9 % (11.5-14.5); WHITE BLOOD COUNT 8.3 X10'3 (4.5-11.0)
[2018-01-25 02:14] LABS: ALANINE AMINOTRANSFERASE 12 U/L (12-78); ALBUMIN 2.4 G/DL (3.4-5.0); ALBUMIN/GLOBULIN RATIO 0.6 (1.1-1.5); ALKALINE PHOSPHATASE 126 IU/L (46-116); ANION GAP 14 (8-16); ASPARTATE AMINO TRANSFERASE 12 U/L (10-37); BILIRUBIN,TOTAL 0.6 MG/DL (0.1-1.0); BLOOD UREA NITROGEN 62 MG/DL (7-18); BUN/CREATININE RATIO 8.4 (5.4-32.0); CHLORIDE 98 MMOL/L (99-107); CREATININE 7.38 MG/DL (0.60-1.10); GLUCOSE 101 MG/DL (70-104); MAGNESIUM 2.4 MG/DL (1.5-2.4); PHOSPHORUS 8.3 MG/DL (2.3-4.5); POTASSIUM 4.8 MMOL/L (3.5-5.1); SODIUM 138 MMOL/L (135-145); TOTAL CARBON DIOXIDE 26.4 MMOL/L (24-32); TOTAL PROTEIN 6.4 G/DL (6.4-8.2); eGFR 8 ML/MIN
[2018-01-25 02:16] LABS: INR 1.1 INR; PARTIAL THROMBOPLASTIN TIME 34 SECONDS (22-32); PROTHROMBIN TIME 10.7 SECONDS (9.0-12.0)
--- NOTE | 2018-01-25 06:43 | NUR ---
Problems reprioritized. Patient report given, questions answered & plan of care reviewed with Irina LOYD.
[2018-01-25] MEDS: losartan 50mg tablet PO SCH (07:46)
[2018-01-25] MEDS: gabapentin 100mg capsule PO SCH (07:46)
[2018-01-25] MEDS: lactobacillus rhamnosus 10,000 MMU CELLS/CAPSULE PO SCH (07:46)
[2018-01-25] MEDS: folic acid 1mg tablet PO SCH (07:46)
[2018-01-25] MEDS: carVEDilol 12.5mg tablet PO SCH (07:47)
[2018-01-25] MEDS: cloNIDine 0.1 mg tablet PO SCH ×2 (07:47→15:50)
[2018-01-25] MEDS: hydrALAZINE 25 MG tablet PO SCH ×2 (07:47→15:48)
[2018-01-25] MEDS: pantoprazole 40 MG vial IV SCH (07:47)
[2018-01-25] MEDS: folic acid/vitamin B complex w/vitamin C 0.8mg tablet PO SCH (07:47)
[2018-01-25] MEDS: minoxidil 2.5mg tablet PO SCH (07:50)
[2018-01-25] MEDS: vitamin B comp w/Vit. C tab 1 TAB TABLET PO SCH (07:50)
[2018-01-25] MEDS: levoFLOXACIN-Levaquin 250mg/D5 50 ML IV SCH (07:51)
[2018-01-25] MEDS: heparin, porcine 5000 units/ml vial SQ SCH (07:52)
[2018-01-25] MEDS: docusate sodium 100mg/10ml UD cup PO SCH (08:00)
[2018-01-25] MEDS ORDERED: LIDOcaine 1% (10mg/ml) 2ml vial SQ ONE ×2 (08:00→10:35)
[2018-01-25] MEDS ORDERED: epoetin 20,000 units/ml inj IV ONE (08:00)
[2018-01-25] MEDS ORDERED: albumin (human) 25% 100ml IV 100 ML IV PRN (08:00)
--- NOTE | 2018-01-25 08:45 | NUR ---
Patient in room ICU 2044. I have received report from EVERT Gerber and had the opportunity to ask questions and assume patient care.
--- NOTE | 2018-01-25 09:01 | NUR ---
Problems reprioritized. Patient report given, questions answered & plan of care reviewed with Kevin LOYD.
--- NOTE | 2018-01-25 10:30 | NUR ---
HD run started.
[2018-01-25] MEDS: nicotine 21mg patch - 24 hr TD SCH (11:57)
--- NOTE | 2018-01-25 14:36 | NUR ---
HD run completed. 3.5 L off. Pt alert and oriented.
--- NOTE | 2018-01-25 18:30 | NUR ---
Patient in room ICU 2044. I have received report from grace cheema and had the opportunity to ask questions and assume patient care.
--- NOTE | 2018-01-25 18:31 | NUR ---
Problems reprioritized. Patient report given, questions answered & plan of care reviewed.
--- NOTE | 2018-01-25 18:52 | NUR ---
pt is requesting to leave AMA. Pt is A&O x 4. pt son has been notified. notified
--- NOTE | 2018-01-25 19:20 | NUR ---
pt gait tested. pt able to stand with minimal assistance with a walker and take 5 steps. pt states he uses a walker and has a wheelchair at home. pt still wants to leave A
--- NOTE | 2018-01-25 19:34 | NUR ---
central line removed. cannula intact. bandage placed over the site. no bleeding noted. pt tolerated the procedure well
--- NOTE | 2018-01-25 19:40 | NUR ---
pt assisted to his car via wheelchair. vital signs stable upon departure.
[2018-01-26] MEDS ORDERED: pantoprazole 40mg Tablet.DR PO SCH (07:30)
[2018-01-27] MEDS ORDERED: levoFLOXACIN 250mg tablet PO SCH (11:00)
== END 2018-01-25 19:45 | disposition left against medical advice (07) | DRG 870 ==
LOC: ER 05:49 → ED HOLD 07:24 → ICU 2S 10:22
PROVIDERS: ADMIT Emergency Medicine Emergency Medical Services; ATTEND Internal Medicine Critical Care Medicine
PROC: 5A1955Z Respiratory Ventilation, Greater than 96 Consecutive Hours (ICD-10-PCS; principal; 2018-01-20)
PROC: 0BH17EZ Insertion of Endotracheal Airway into Trachea, Via Natural or Artificial Opening (ICD-10-PCS; 2018-01-20)
PROC: 02HV33Z Insertion of Infusion Device into Superior Vena Cava, Percutaneous Approach (ICD-10-PCS; 2018-01-20)
PROC: B548ZZA Ultrasonography of Superior Vena Cava, Guidance (ICD-10-PCS; 2018-01-20)
PROC: 02PYX3Z Removal of Infusion Device from Great Vessel, External Approach (ICD-10-PCS; 2018-01-20)
PROC: 02HV33Z Insertion of Infusion Device into Superior Vena Cava, Percutaneous Approach (ICD-10-PCS; 2018-01-20)
PROC: 5A1D70Z Performance of Urinary Filtration, Intermittent, Less than 6 Hours Per Day (ICD-10-PCS; 2018-01-20)
PROC: BW241ZZ Computerized Tomography (CT Scan) of Chest and Abdomen using Low Osmolar Contrast (ICD-10-PCS; 2018-01-20)
PROC: 5A1D70Z Performance of Urinary Filtration, Intermittent, Less than 6 Hours Per Day (ICD-10-PCS; 2018-01-23)
PROC: 5A1D70Z Performance of Urinary Filtration, Intermittent, Less than 6 Hours Per Day (ICD-10-PCS; 2018-01-25)
DX: A41.9 Sepsis, unspecified organism (principal); J18.9 Pneumonia, unspecified organism; N18.6 End stage renal disease; J96.01 Acute respiratory failure with hypoxia; J96.02 Acute respiratory failure with hypercapnia; I50.23 Acute on chronic systolic (congestive) heart failure; I13.2 Hypertensive heart and chronic kidney disease with heart failure and with stage 5 chronic kidney disease, or end stage renal disease; J44.0 Chronic obstructive pulmonary disease with (acute) lower respiratory infection; I42.9 Cardiomyopathy, unspecified; T82.534A Leakage of infusion catheter, initial encounter; T68.XXXA Hypothermia, initial encounter; G47.30 Sleep apnea, unspecified; F17.210 Nicotine dependence, cigarettes, uncomplicated; I25.10 Atherosclerotic heart disease of native coronary artery without angina pectoris; F32.9 Major depressive disorder, single episode, unspecified; Z53.21 Procedure and treatment not carried out due to patient leaving prior to being seen by health care provider; Z88.2 Allergy status to sulfonamides; Z88.6 Allergy status to analgesic agent; Z88.8 Allergy status to other drugs, medicaments and biological substances; I25.2 Old myocardial infarction; Z91.19 Patient's noncompliance with other medical treatment and regimen; Z99.2 Dependence on renal dialysis; Z79.899 Other long term (current) drug therapy; Y83.8 Other surgical procedures as the cause of abnormal reaction of the patient, or of later complication, without mention of misadventure at the time of the procedure; Y92.89 Other specified places as the place of occurrence of the external cause
CPT/HCPCS: 31500; 36415; 36556; 36600; 71045; 71260; 80047; 80053; 80305; 82800; 82803; 82948; 83605; 83735; 83880; 84100; 84134; 84145; 84484; 85018; 85025; 85610; 85730; 87040; 87070; 90935; 92616; 93005; 94002; 94003; 94640; 94760; 96374; 96375; 97110; 97161; 97530; 97535; 99291; C9113; G0257; G0378; J0360; J0885; J1644; J1956; J2060; J2250; J2704; J3370; J3490; Q9967

== ENCOUNTER 2018-06-03 20:48 | Emergency (ER) | payer MEDICARE, MEDICAID ==
[~2018-06-03] VITALS: Ht 182.9 cm; Wt 86.0 kg
[~2018-06-03 20:48] MED LIST changes: -CLON-529 PO; -DOCU250C4 PO; -HYDR-4353 PO; -LOSA25TA96 PO; -NIFE30TA88 PO; -ONDA4TAB9 SL
[2018-06-03] MEDS ORDERED: LIDOcaine 1.5% w/epinephrine 1:200,000 5ml ampul IJ ONE (21:05)
[2018-06-03] MEDS ORDERED: LIDOcaine 1% w/epiNEPHrine 1:200,000 30ml vial IM ONE (21:15)
[2018-06-03 23:21] VITALS: BP 155/80
== END 2018-06-03 23:23 | disposition home or self-care (01) ==
LOC: ER 20:49
DX: T82.590A Other mechanical complication of surgically created arteriovenous fistula, initial encounter (principal); T82.838A Hemorrhage due to vascular prosthetic devices, implants and grafts, initial encounter; S41.112A Laceration without foreign body of left upper arm, initial encounter; L98.499 Non-pressure chronic ulcer of skin of other sites with unspecified severity; I25.10 Atherosclerotic heart disease of native coronary artery without angina pectoris; I13.2 Hypertensive heart and chronic kidney disease with heart failure and with stage 5 chronic kidney disease, or end stage renal disease; N18.6 End stage renal disease; I50.9 Heart failure, unspecified; I25.2 Old myocardial infarction; J44.9 Chronic obstructive pulmonary disease, unspecified; F17.210 Nicotine dependence, cigarettes, uncomplicated; Z56.0 Unemployment, unspecified; Z79.899 Other long term (current) drug therapy; Z99.2 Dependence on renal dialysis; X58.XXXA Exposure to other specified factors, initial encounter; Y93.89 Activity, other specified; Y92.89 Other specified places as the place of occurrence of the external cause; Y99.8 Other external cause status; Y83.8 Other surgical procedures as the cause of abnormal reaction of the patient, or of later complication, without mention of misadventure at the time of the procedure
CPT/HCPCS: 12001; 99285; J3490

== ENCOUNTER 2018-06-21 22:48 | Emergency (ER) | payer MEDICARE, MEDICAID ==
[~2018-06-21] VITALS: Ht 185.4 cm; Wt 82.1 kg
[~2018-06-21 22:48] MED LIST changes: +CLOP75TA8 PO; +ETHA25TA4 PO; +OXYC-150 PO
[2018-06-21 22:49] VITALS: BP 147/70
--- NOTE | 2018-06-21 22:52 | NUR ---
MD LI AT BEDSIDE TO EVALUATE PT, REQUESTING SUTURE MATERIAL TO BEDSIDE.
[2018-06-26] MEDS ORDERED: SEVE800T8 PO (23:39)
[2018-06-26] MEDS ORDERED: LIDO30CR23 TOP (23:39)
[2018-06-26] MEDS ORDERED: CLON-529 PO (23:39)
[2018-06-26] MEDS ORDERED: ALB0.5UD IH (23:39)
[2018-06-26] MEDS ORDERED: NIFE90TA37 PO (23:39)
[2018-06-26] MEDS ORDERED: DOCU-28 PO (23:39)
[2018-06-26] MEDS ORDERED: ETHA25TA4 PO (23:39)
[2018-06-26] MEDS ORDERED: HYDR-4353 PO (23:39)
[2018-06-26] MEDS ORDERED: ISOS30TA9 PO (23:39)
[2018-06-26] MEDS ORDERED: LOSA25TA96 PO (23:39)
[2018-06-26] MEDS ORDERED: ONDA4TAB6 PO (23:39)
[2018-06-26] MEDS ORDERED: LACT10SO PO (23:39)
[2018-06-26] MEDS ORDERED: FOLI0.4T2 PO (23:39)
[2018-06-26] MEDS ORDERED: GABA-530 PO (23:39)
[2018-06-26] MEDS ORDERED: CARV-50 PO (23:39)
[2018-06-27] MEDS ORDERED: OXYC-511 PO (00:46)
[2018-06-28] MEDS ORDERED: CLOP75TA15 PO (09:42)
[2018-06-28] MEDS ORDERED: MINO2.5T19 PO (09:42)
[2018-06-28] MEDS ORDERED: ALBU8HFA PO (11:05)
[2018-06-28] MEDS ORDERED: ISOS30TA6 PO (11:05)
[2018-06-28] MEDS ORDERED: FOLI1TAB16 PO (11:05)
[2018-06-28] MEDS ORDERED: DOCU240C26 PO (11:05)
[2018-06-28] MEDS ORDERED: VITA0.4T16 PO (11:07)
== END 2018-06-21 23:48 | disposition home or self-care (01) ==
LOC: ER 22:49
DX: T82.838A Hemorrhage due to vascular prosthetic devices, implants and grafts, initial encounter (principal); S81.812A Laceration without foreign body, left lower leg, initial encounter; I25.10 Atherosclerotic heart disease of native coronary artery without angina pectoris; I11.0 Hypertensive heart disease with heart failure; I25.2 Old myocardial infarction; J44.9 Chronic obstructive pulmonary disease, unspecified; I13.2 Hypertensive heart and chronic kidney disease with heart failure and with stage 5 chronic kidney disease, or end stage renal disease; N18.6 End stage renal disease; I50.9 Heart failure, unspecified; Z99.2 Dependence on renal dialysis; Z98.890 Other specified postprocedural states; Z56.0 Unemployment, unspecified; Z79.899 Other long term (current) drug therapy; X58.XXXA Exposure to other specified factors, initial encounter; Y93.89 Activity, other specified; Y92.89 Other specified places as the place of occurrence of the external cause; Y99.8 Other external cause status; Y84.1 Kidney dialysis as the cause of abnormal reaction of the patient, or of later complication, without mention of misadventure at the time of the procedure
CPT/HCPCS: 99283

== ENCOUNTER 2018-06-26 21:13 | Inpatient (IN) | payer MEDICARE, MEDICAID | END 2018-06-27 09:50 | disposition left against medical advice (07) | LOC: SUR 3N 06-27 00:15 → ER 21:13 → SUR 3N 06-27 00:19 | DX: T82.838A Hemorrhage due to vascular prosthetic devices, implants and grafts, initial encounter (principal); N18.6 End stage renal disease; I42.9 Cardiomyopathy, unspecified; I50.22 Chronic systolic (congestive) heart failure; M79.7 Fibromyalgia; Y83.2 Surgical operation with anastomosis, bypass or graft as the cause of abnormal reaction of the patient, or of later complication, without mention of misadventure at the time of the procedure; Y84.1 Kidney dialysis as the cause of abnormal reaction of the patient, or of later complication, without mention of misadventure at the time of the procedure ==

== ENCOUNTER 2018-06-29 12:05 | Day surgery (SDC) | payer MEDICARE, MEDICAID ==
[2018-06-29] VITALS (7 sets, daily range): BP systolic 117–153; BP diastolic 66–78
[~2018-06-29] VITALS: Ht 182.9 cm; Wt 85.6 kg
[~2018-06-29 12:05] MED LIST changes: +ALBU8HFA PO; -ALPR-624 PO; -ALPR0.5T8 PO; +BUPIVAcaine/PF 2.5mg/ml (0.25%) 10ml vial ONE; +CLON-529 PO; -CLON0.3T PO; +CLOP75TA15 PO; -CLOP75TA8 PO; -CYAN1TAB18 PO; +DOCU240C26 PO; -DOCU250C88 PO; +DOCUMENT DATE & TIME OF BETA-BLOCKER PO ONE; -FOLI0.8T7 PO; -FURO80TA3 PO; -HYDR-3972 PO; -HYDR-4069 PO; +ISOS30TA6 PO; +LACT10SO PO; +LIDO30CR23 TOP; +LIDOcaine 1% 30ml preserv. free vial ONE; +LOSA25TA96 PO; -LOSA50TA64 PO; -ONDA4TAB12 SL; +ONDA4TAB6 PO; -OXYC-150 PO; +OXYC-511 PO; +VITA0.4T16 PO; +famotidine 20mg tablet PO ONE; +heparin 10,000 units/1 ML INJ ONE
[2018-06-29] MEDS ORDERED: normal saline 500ml IV soln 500 ML IV SCH (13:00)
[2018-06-29] MEDS ORDERED: cefazolin/dext.iso 2gm/100 ML IV ONE (13:00)
[2018-06-29 13:56] LABS: ISTAT CREATININE 6.4 mg/dL (0.8-1.3); ISTAT HGB 7.1 g/dl (14.0-18.0); ISTAT IONIZED CALCIUM 1.08 mmol/L (1.03-1.32); ISTAT K 4.5 mmol/L (3.5-5.1); POC BUN/CREATININE RATIO 3.3 (5.4-32.0)
[2018-06-29] MEDS ORDERED: fentaNYL/PF 50MCG/1 ML 2ML syringe ONE (14:55)
[2018-06-29] MEDS ORDERED: MIDAZolam 5mg/5ml vial ONE (14:55)
[2018-06-29] MEDS ORDERED: LIDOcaine 1% 30ml preserv. free vial ONE (15:07)
[2018-06-29] MEDS ORDERED: mupirocin 2% ointment 22GM ONE (15:36)
[2018-06-29] MEDS ORDERED: ceFAZolin 1000mg inj ONE (15:46)
--- NOTE | 2018-06-29 16:06 | NUR ---
Received from OR via PRIYANKA , accompanied by Anesthesiologist CHOCO and report given by Anesthesiolgist. PATIENT WITH LEFT UE CLING WRAP ON WITH NO DRAINAGE EVIDENT. RIGHT UE HAS 20G PIV IN PLACE. 10L MASK ON WITH 100% SATURATIONS. VSS AT THIS IE. LAB TO COME RE DRAW H&H FOR TRANSFUSION OF 1 UNIT PRBC. Addendum: 06/29/18 at 1621 by Chavez Farnsworth RN, RN Amended: Links added.
[2018-06-29 17:06] LABS: ALANINE AMINOTRANSFERASE 13 U/L (12-78); ALBUMIN 2.3 G/DL (3.4-5.0); ALBUMIN/GLOBULIN RATIO 0.6 (1.1-1.5); ALKALINE PHOSPHATASE 94 IU/L (46-116); ANION GAP 7 (8-16); ASPARTATE AMINO TRANSFERASE 10 U/L (10-37); BILIRUBIN,TOTAL 0.4 MG/DL (0.1-1.0); BLOOD UREA NITROGEN 24 MG/DL (7-18); BUN/CREATININE RATIO 3.9 (5.4-32.0); CALCIUM 8.3 MG/DL (8.5-10.1); CHLORIDE 103 MMOL/L (99-107); CREATININE 6.17 MG/DL (0.60-1.10); GLUCOSE 90 MG/DL (70-104); POTASSIUM 4.6 MMOL/L (3.5-5.1); SODIUM 139 MMOL/L (135-145); TOTAL CARBON DIOXIDE 28.6 MMOL/L (24-32); eGFR 9 ML/MIN
--- NOTE | 2018-06-29 17:06 | NUR ---
ALL CRITERIA FOR TRANSFER TO THE FLOOR HAS BEEN ACHIEVED. VSS. BED LOW, CALL LIGHT AND VS. SET IN PLACE. RN PRESENT TO ACCEPT CARE. PATIENT RESTING COMFORTABLY IN BED. BELONGINGS SENT WITH PATIENT. DRESSINGS CDI. DENIES PAIN. VSS. TAKEN UP VIA ELECTRONIC TRAIN CONTROL TECHNICIAN. Addendum: 06/29/18 at 1722 by Chavez Farnsworth RN, RN Amended: Links added.
[2018-06-29 17:17] LABS: PARTIAL THROMBOPLASTIN TIME 34 SECONDS (22-32)
--- NOTE | 2018-06-29 19:12 | NUR ---
Dr Gomez was called to clarify blood transfusion orders. He asked what the H and H was and he was told the results. he said that if the patient was asymptomatic that he did not need a transfusion and he could go ahead and be discharged home.
== END 2018-06-29 19:15 | disposition home or self-care (01) ==
LOC: PRE-OP 12:05 → ORTHO 4S 17:10 → PAS 19:15
PROVIDERS: ATTEND Surgery
DX: T82.898A Other specified complication of vascular prosthetic devices, implants and grafts, initial encounter (principal); I72.1 Aneurysm of artery of upper extremity; I10 Essential (primary) hypertension; E78.5 Hyperlipidemia, unspecified; F41.9 Anxiety disorder, unspecified; J44.9 Chronic obstructive pulmonary disease, unspecified; F17.210 Nicotine dependence, cigarettes, uncomplicated; D50.9 Iron deficiency anemia, unspecified; I25.2 Old myocardial infarction; Z85.828 Personal history of other malignant neoplasm of skin; Y83.8 Other surgical procedures as the cause of abnormal reaction of the patient, or of later complication, without mention of misadventure at the time of the procedure
CPT/HCPCS: 35011; 36415; 80047; 85610; 85730; 86885; 86900; 86901; 86920; J0690; J1644; J2250; J3010; J3490; J7030; 80053; A6446; A6449; A7000; G0378

== ENCOUNTER 2018-07-12 21:28 | Inpatient (IN) | payer MEDICARE, MEDICAID ==
[~2018-07-12] VITALS: Ht 182.9 cm; Wt 82.6 kg
[~2018-07-12 21:28] MED LIST changes: -BUPIVAcaine/PF 2.5mg/ml (0.25%) 10ml vial ONE; -DOCUMENT DATE & TIME OF BETA-BLOCKER PO ONE; -LIDOcaine 1% 30ml preserv. free vial ONE; -MINO2.5T19 PO; -famotidine 20mg tablet PO ONE; -heparin 10,000 units/1 ML INJ ONE
[2018-07-12 22:06] LABS: BASOPHILS # (AUTO) 0.1 X10'3 (0-0.2); BASOPHILS % (AUTO) 1.3 % (0-1); EOSINOPHILS # (AUTO) 0.2 X10'3 (0-0.9); EOSINOPHILS % (AUTO) 2.7 % (0-6); HEMATOCRIT 26.9 % (42.0-52.0); HEMOGLOBIN 8.8 g/dl (14.0-17.9); LYMPHOCYTES # (AUTO) 1.2 X10'3 (1.1-4.8); LYMPHOCYTES % (AUTO) 16.3 % (21-51); MEAN CORPUSCULAR HEMOGLOBIN 30.1 PG (27.0-31.0); MEAN CORPUSCULAR HGB CONC 32.8 g/dL (33.0-36.5); MEAN CORPUSCULAR VOLUME 91.8 FL (78-98); MEAN PLATELET VOLUME 7.3 FL (7.4-10.4); MONOCYTES # (AUTO) 0.5 X10'3 (0-0.9); MONOCYTES % (AUTO) 6.6 % (2-12); NEUTROPHILS # (AUTO) 5.4 X10'3 (1.8-7.7); NEUTROPHILS % (AUTO) 73.1 % (42-75); PLATELET COUNT 232 X10'3 (140-440); RED BLOOD COUNT 2.93 X10'6 (4.70-6.10); RED CELL DISTRIBUTION WIDTH 18.9 % (11.5-14.5); WHITE BLOOD COUNT 7.4 X10'3 (4.5-11.0)
[2018-07-12 22:20] LABS: PARTIAL THROMBOPLASTIN TIME 39 SECONDS (22-32)
[2018-07-12 22:24] LABS: ALANINE AMINOTRANSFERASE 15 U/L (12-78); ALBUMIN/GLOBULIN RATIO 0.7 (1.1-1.5); ALKALINE PHOSPHATASE 123 IU/L (46-116); ANION GAP 12 (8-16); ASPARTATE AMINO TRANSFERASE 13 U/L (10-37); BILIRUBIN,TOTAL 0.6 MG/DL (0.1-1.0); BLOOD UREA NITROGEN 85 MG/DL (7-18); BUN/CREATININE RATIO 7.6 (5.4-32.0); CALCIUM 9.1 MG/DL (8.5-10.1); CHLORIDE 101 MMOL/L (99-107); CREATININE 11.22 MG/DL (0.60-1.10); GLUCOSE 84 MG/DL (70-104); MAGNESIUM 2.9 MG/DL (1.5-2.4); SODIUM 137 MMOL/L (135-145); TOTAL CARBON DIOXIDE 23.6 MMOL/L (24-32); TOTAL PROTEIN 7.4 G/DL (6.4-8.2); eGFR 5 ML/MIN
[2018-07-12 22:36] LABS: LACTIC SEPSIS 0.9 MMOL/L (0.4-2.0)
[2018-07-12 22:43] LABS: POTASSIUM 6.9 MMOL/L (3.5-5.1)
[2018-07-12 22:48] LABS: ANISOCYTOSIS 2+; PLATELET ESTIMATE NORMAL
[2018-07-12 22:50] LABS: HYPOCHROMASIA 1+; MICROCYTOSIS FEW; POLYCHROMASIA 1+
[2018-07-12] MEDS ORDERED: sodium bicarbonate (8.4%) 1 mEq/ml syringe IV ONE (23:05)
[2018-07-12] MEDS ORDERED: calcium chloride 100 MG/1 ML inj IV ONE (23:05)
[2018-07-12] MEDS ORDERED: dextrose 50%-water 50ml dispensing syringe IV ONE (23:05)
[2018-07-12] MEDS ORDERED: insulin regular, human 10 units/0.1 ml syringe IV ONE (23:05)
[2018-07-12] MEDS ORDERED: furosemide 40mg/4ml inj IV ONE (23:05)
[2018-07-12] MEDS ORDERED: diphenhydrAMINE 25mg capsule PO PRN (23:40)
[2018-07-12] MEDS ORDERED: acetaminophen 325mg tablet PO PRN (23:40)
[2018-07-12] MEDS ORDERED: sodium bicarbonate (8.4%) 1 mEq/ml syringe ONE (23:49)
[2018-07-12] MEDS ORDERED: albuterol 2.5 MG/3 ML nebule NEB PRN (23:50)
[2018-07-12] MEDS: nitroGLYCERIN 1gm ointment UD TP SCH (23:52)
[2018-07-12] MEDS: sodium polystyrene sulfonate 15gm/60ml oral suspension PO ONE (23:52)
[2018-07-13 00:18] LABS: TROPONIN I < 0.04 NG/ML (0.0-0.05)
--- NOTE | 2018-07-13 00:31 | NUR ---
FEBRUARY NOTFIED OF PT'S REFUSAL TO STAY FOR ADMISSION. SON CONTACTED FOR RIDE HOME. FEBRUARY COMING TO DISCUSS CHOICE WITH PT. PT REFUSES TO TAKE MEDICATION AND TO USE NEEDED OXYGEN.
--- NOTE | 2018-07-13 01:11 | NUR ---
FEBRUARY CAME TO DISCUSS AMA WITH PT. PT SIGNED AMA PAPERWORK. SON NOW AT BS TRYING TO CONVINCE HIM TO STAY FOR ADMISSION. PT IS STILL REFUSING OXYGEN AND MEDICATION.
[2018-07-13 02:00] VITALS: BP 120/61
--- NOTE | 2018-07-13 02:10 | NUR ---
PT ARRIVED TO 3018 FROM ER, ACCOMPANIED BY HIS SON. PT HAS BEEN ORIENTED TO THE ROOM. VSS. RECEIVED REPORT FROM ER NURSE PRIOR TO PT'S ARRIVAL.
[2018-07-13] MEDS: sodium polystyrene sulfonate 15gm/60ml oral suspension PO ONE (02:40)
[2018-07-13] MEDS: nitroGLYCERIN 1gm ointment UD TP SCH ×6 (03:40→23:59)
--- NOTE | 2018-07-13 03:49 | NUR ---
PT IS SLEEPING AND HARD TO AROUSE. WHEN I YELLED AT IN HIS EAR, PT WAKES UP "WHAT!" THEN ANSWERS SOME SIMPLE QUESTIONS BUT EASILY FALLS BACK TO SLEEP. O2 IS DESATING TO LOW TO MID 80'S AND RT PUT ON MASK WITH 10L O2. FEBRUARY,CAM MILLING MACHINE OPERATOR NOTIFIED AND WILL GET ABG.
[2018-07-13] MEDS ORDERED: ondansetron 4mg rapidly disintigrating tab PO PRN (03:55)
[2018-07-13 04:05] LABS: ABG BASE EXCESS -1.8 mmol/L (-2.0-3.0); ABG HCO3 24.8 mmol/L (22.0-26.0); ABG OXYGEN SATURATION 87.6 % (95-98); ABG PH (T) 7.305 (7.350-7.450); ABG PO2 (T) 61.6 mmHg (83-108); ALLEN'S TEST Positive; FCOHb 2.4 % (0.5-1.5); FLOW 10 L/min; FMetHb 0.1 % (0.3-1.12); FO2Hb 85.4 % (94-100); PATIENT TEMPERATURE 37.1; RESPIRATORY RATE (OBSERVED) 16 b/min; TOTAL HEMOGLOBIN 10.3 G/dl (14.0-18.0)
[2018-07-13 05:33] LABS: BASOPHILS # (AUTO) 0.1 X10'3 (0-0.2); BASOPHILS % (AUTO) 1.2 % (0-1); EOSINOPHILS # (AUTO) 0.2 X10'3 (0-0.9); EOSINOPHILS % (AUTO) 2.9 % (0-6); HEMATOCRIT 26.6 % (42.0-52.0); HEMOGLOBIN 8.7 g/dl (14.0-17.9); LYMPHOCYTES # (AUTO) 1.3 X10'3 (1.1-4.8); LYMPHOCYTES % (AUTO) 20.5 % (21-51); MEAN CORPUSCULAR HEMOGLOBIN 30.1 PG (27.0-31.0); MEAN CORPUSCULAR HGB CONC 32.6 g/dL (33.0-36.5); MEAN CORPUSCULAR VOLUME 92.2 FL (78-98); MONOCYTES # (AUTO) 0.4 X10'3 (0-0.9); MONOCYTES % (AUTO) 6.3 % (2-12); NEUTROPHILS # (AUTO) 4.4 X10'3 (1.8-7.7); NEUTROPHILS % (AUTO) 69.1 % (42-75); PLATELET COUNT 211 X10'3 (140-440); RED BLOOD COUNT 2.89 X10'6 (4.70-6.10); WHITE BLOOD COUNT 6.4 X10'3 (4.5-11.0)
[2018-07-13 05:38] LABS: ALBUMIN 2.7 G/DL (3.4-5.0); ANION GAP 12 (8-16); BLOOD UREA NITROGEN 86 MG/DL (7-18); BUN/CREATININE RATIO 7.4 (5.4-32.0); CALCIUM 9.3 MG/DL (8.5-10.1); CHLORIDE 103 MMOL/L (99-107); CREATININE 11.67 MG/DL (0.60-1.10); GLUCOSE 63 MG/DL (70-104); PHOSPHORUS 6.9 MG/DL (2.3-4.5); SODIUM 141 MMOL/L (135-145); TOTAL CARBON DIOXIDE 26.5 MMOL/L (24-32); eGFR 4 ML/MIN
--- NOTE | 2018-07-13 05:54 | NUR ---
FEBRUARY,IT APPLICATION DEVELOPMENT MANAGER WENT INTO PT'S ROOM SATS 96% FIO2 45% AND TURNED DOWN FIO2 TO 30%. PT SATS 92% NOW.
[2018-07-13 06:05] LABS: POTASSIUM 6.4 MMOL/L (3.5-5.1)
--- NOTE | 2018-07-13 06:07 | NUR ---
FEBRUARY,OUTREACH CLINICIAN NOTIFIED OF PT'S CRITICAL POTASSIUM OF 6.4. SHE WILL PLACE ORDERS.
[2018-07-13] MEDS ORDERED: dextrose 50%-water 50ml dispensing syringe IV ONE (06:10)
[2018-07-13] MEDS ORDERED: calcium gluconate inj. 1 GM in normal saline 100ml IV soln 90 ML IV ONE (06:10)
[2018-07-13] MEDS ORDERED: insulin regular, human 10 units/0.1 ml syringe IV ONE (06:10)
[2018-07-13] MEDS ORDERED: albuterol 2.5 MG/3 ML nebule CONTNEB ONE (06:10)
--- NOTE | 2018-07-13 06:20 | NUR ---
Patient in room PCU 3018. I have received report from Bessy LOYD and had the opportunity to ask questions and assume patient care.
--- NOTE | 2018-07-13 06:37 | NUR ---
Problems reprioritized. Patient report given, questions answered & plan of care reviewed with EVERT LEON AND EVERT FERNANDEZ.
[2018-07-13 07:00] VITALS: BP 135/62
[2018-07-13 07:43] LABS: ANISOCYTOSIS 2+; HYPOCHROMASIA 1+; PLATELET ESTIMATE NORMAL; POLYCHROMASIA 1+; SCHISTOCYTES FEW
[2018-07-13] MEDS: isosorbide mononitrate 30mg tab.SR.24H PO SCH (08:00)
[2018-07-13] MEDS: losartan 25mg tablet PO SCH ×2 (08:00→20:56)
[2018-07-13] MEDS: cloNIDine 0.1 mg tablet PO SCH ×3 (08:00→20:56)
[2018-07-13] MEDS: sevelamer carbonate 800mg tablet PO SCH ×3 (08:00→23:55)
[2018-07-13] MEDS: ETHACRYNIC ACID 25 MG PO SCH (08:00)
[2018-07-13] MEDS: carVEDilol 12.5mg tablet PO SCH ×2 (08:00→20:56)
[2018-07-13] MEDS: ipratropium/albuterol 3ml nebule NEB SCH ×3 (08:30→20:28)
[2018-07-13] MEDS ORDERED: LIDOcaine 1% (10mg/ml) 2ml vial SQ ONE (08:35)
[2018-07-13] MEDS ORDERED: heparin 1,000 units/ml 10ml inj IV ONE (08:35)
[2018-07-13] MEDS: docusate sod 100mg capsule PO SCH ×2 (09:10→20:56)
[2018-07-13] MEDS: lactulose 20gm/30ml cup PO SCH (09:10)
[2018-07-13] MEDS: gabapentin 100mg capsule PO SCH ×2 (09:11→20:55)
[2018-07-13] MEDS: vitamin B comp w/Vit. C tab 1 TAB TABLET PO SCH (09:15)
[2018-07-13] MEDS: nicotine 21mg patch - 24 hr TD SCH (09:15)
[2018-07-13] MEDS: heparin, porcine 5000 units/ml vial SQ SCH ×2 (09:23→20:57)
[2018-07-13 11:00] VITALS: BP 145/58
[2018-07-13 15:00] VITALS: BP 169/55
[2018-07-13] MEDS ORDERED: labetalol 20mg/4ml (5mg/ml) syringe IV ONE (16:15)
[2018-07-13 16:21] LABS: ALBUMIN 2.7 G/DL (3.4-5.0); ANION GAP 12 (8-16); BLOOD UREA NITROGEN 39 MG/DL (7-18); BUN/CREATININE RATIO 6.6 (5.4-32.0); CALCIUM 8.9 MG/DL (8.5-10.1); CHLORIDE 100 MMOL/L (99-107); CREATININE 5.94 MG/DL (0.60-1.10); GLUCOSE 62 MG/DL (70-104); PHOSPHORUS 3.8 MG/DL (2.3-4.5); POTASSIUM 3.8 MMOL/L (3.5-5.1); SODIUM 138 MMOL/L (135-145); TOTAL CARBON DIOXIDE 26.4 MMOL/L (24-32); eGFR 10 ML/MIN
--- NOTE | 2018-07-13 16:54 | NUR ---
sutures removed. Three sutures removed in total. Discussed case with charge nurse. Charge nurse stated steri strips were not needed due to incision being almost completely healed.
[2018-07-13 18:11] LABS: ABG BASE EXCESS 1.7 mmol/L (-2.0-3.0); ABG HCO3 25.5 mmol/L (22.0-26.0); ABG OXYGEN SATURATION 85.6 % (95-98); ABG PH (T) 7.457 (7.350-7.450); ABG PO2 (T) 50.4 mmHg (83-108); ALLEN'S TEST Positive; FCOHb 1.4 % (0.5-1.5); FLOW 3 L/min; FMetHb 0.1 % (0.3-1.12); FO2Hb 84.3 % (94-100); TOTAL HEMOGLOBIN 10.4 G/dl (14.0-18.0)
--- NOTE | 2018-07-13 18:36 | NUR ---
Problems reprioritized. Patient report given, questions answered & plan of care reviewed with Alina LYOD.
[2018-07-13 19:00] VITALS: BP 190/89
[2018-07-13] MEDS ORDERED: NIFEdipine XL 30mg tablet PO SCH (21:00)
[2018-07-13] MEDS ORDERED: folic acid 1mg tablet PO SCH (21:00)
[2018-07-13] MEDS ORDERED: DOCUSATE CALCIUM 240 MG PO SCH (21:00)
[2018-07-13] MEDS ORDERED: clopidogrel 75mg tablet PO SCH (21:00)
[2018-07-13] MEDS: oxyCODONE/APAP 10/325mg tablet PO PRN (21:07)
[2018-07-13 23:00] VITALS: BP 110/54
[2018-07-14 03:00] VITALS: BP 130/61
[2018-07-14] MEDS: oxyCODONE/APAP 10/325mg tablet PO PRN ×2 (03:40→14:01)
[2018-07-14] MEDS: nitroGLYCERIN 1gm ointment UD TP SCH ×3 (03:57→12:00)
[2018-07-14 05:40] LABS: BASOPHILS # (AUTO) 0.1 X10'3 (0-0.2); BASOPHILS % (AUTO) 1.3 % (0-1); EOSINOPHILS # (AUTO) 0.2 X10'3 (0-0.9); EOSINOPHILS % (AUTO) 3.7 % (0-6); HEMATOCRIT 29.1 % (42.0-52.0); HEMOGLOBIN 9.7 g/dl (14.0-17.9); LYMPHOCYTES # (AUTO) 1.3 X10'3 (1.1-4.8); LYMPHOCYTES % (AUTO) 21.3 % (21-51); MEAN CORPUSCULAR HEMOGLOBIN 30.1 PG (27.0-31.0); MEAN CORPUSCULAR HGB CONC 33.1 g/dL (33.0-36.5); MEAN CORPUSCULAR VOLUME 90.7 FL (78-98); MONOCYTES # (AUTO) 0.5 X10'3 (0-0.9); MONOCYTES % (AUTO) 7.9 % (2-12); NEUTROPHILS # (AUTO) 3.9 X10'3 (1.8-7.7); NEUTROPHILS % (AUTO) 65.8 % (42-75); PLATELET COUNT 239 X10'3 (140-440); RED BLOOD COUNT 3.21 X10'6 (4.70-6.10); RED CELL DISTRIBUTION WIDTH 18.3 % (11.5-14.5); WHITE BLOOD COUNT 5.9 X10'3 (4.5-11.0)
[2018-07-14 06:00] VITALS: BP 126/59
--- NOTE | 2018-07-14 06:00 | NUR ---
Patient in room PCU 3018. I have received report from EVERT Fuller and had the opportunity to ask questions and assume patient care.
[2018-07-14 06:02] LABS: ALBUMIN 2.8 G/DL (3.4-5.0); ANION GAP 13 (8-16); BLOOD UREA NITROGEN 49 MG/DL (7-18); BUN/CREATININE RATIO 6.5 (5.4-32.0); CALCIUM 9.2 MG/DL (8.5-10.1); CHLORIDE 100 MMOL/L (99-107); CREATININE 7.52 MG/DL (0.60-1.10); GLUCOSE 102 MG/DL (70-104); MAGNESIUM 2.6 MG/DL (1.5-2.4); PHOSPHORUS 5.3 MG/DL (2.3-4.5); POTASSIUM 4.4 MMOL/L (3.5-5.1); SODIUM 139 MMOL/L (135-145); TOTAL CARBON DIOXIDE 26.3 MMOL/L (24-32); eGFR 7 ML/MIN
[2018-07-14 07:25] VITALS: BP 119/57
--- NOTE | 2018-07-14 07:31 | NUR ---
Called Dr Mars regarding pt HR dropping into 30's-40's, received orders to hold all meds that can cause bradycardia.
[2018-07-14] MEDS: cloNIDine 0.1 mg tablet PO SCH ×2 (08:00→12:02)
[2018-07-14] MEDS: ETHACRYNIC ACID 25 MG PO SCH (08:00)
[2018-07-14] MEDS: heparin, porcine 5000 units/ml vial SQ SCH (08:00)
[2018-07-14] MEDS: losartan 25mg tablet PO SCH (08:00)
[2018-07-14] MEDS: carVEDilol 12.5mg tablet PO SCH (08:00)
[2018-07-14] MEDS: isosorbide mononitrate 30mg tab.SR.24H PO SCH (08:00)
[2018-07-14] MEDS: ipratropium/albuterol 3ml nebule NEB SCH ×2 (08:22→15:00)
[2018-07-14] MEDS ORDERED: heparin 1,000unit/ml 10ml vial 10 ML IV ONE (08:57)
[2018-07-14] MEDS ORDERED: epoetin 20,000 units/ml inj IV ONE (09:00)
[2018-07-14] MEDS ORDERED: albumin (Human) 5% 250ml 250 ML IV PRN (09:00)
[2018-07-14] MEDS ORDERED: heparin 1,000 units/ml 10ml inj IV ONE (09:00)
[2018-07-14] MEDS: nicotine 21mg patch - 24 hr TD SCH (09:04)
[2018-07-14] MEDS: gabapentin 100mg capsule PO SCH (09:04)
[2018-07-14] MEDS: vitamin B comp w/Vit. C tab 1 TAB TABLET PO SCH (09:04)
[2018-07-14] MEDS: sevelamer carbonate 800mg tablet PO SCH (09:04)
[2018-07-14] MEDS: docusate sod 100mg capsule PO SCH (09:04)
[2018-07-14] MEDS: lactulose 20gm/30ml cup PO SCH (09:05)
--- NOTE | 2018-07-14 09:05 | NUR ---
Pt refusing heparin at this time, states will take later.
[2018-07-14 11:00] VITALS: BP 147/65
[2018-07-14] MEDS ORDERED: LIDOcaine 1% (10mg/ml) 2ml vial SQ ONE (11:00)
[2018-07-14] MEDS ORDERED: NICO-687 TD (14:07)
[2018-07-14 15:00] VITALS: BP 163/76
--- NOTE | 2018-07-14 16:30 | NUR ---
Pt discharged at this time, IV removed, catheter intact. Tele removed. Pt belongings with patient. Escorted pt to son's private vehicle via wheelchair in stable condition. Pt off unit, care relinquished.
== END 2018-07-14 16:30 | disposition home or self-care (01) | DRG 640 ==
LOC: ER 21:29 → ED HOLD 23:59 → CMPBEDREQ 07-13 00:09 → EDBEDREQ 07-13 00:09 → PCU 3S 07-13 00:10
PROVIDERS: ADMIT Internal Medicine Critical Care Medicine; ATTEND Internal Medicine Critical Care Medicine
PROC: 5A09357 Assistance with Respiratory Ventilation, Less than 24 Consecutive Hours, Continuous Positive Airway Pressure (ICD-10-PCS; principal; 2018-07-13)
PROC: 5A1D70Z Performance of Urinary Filtration, Intermittent, Less than 6 Hours Per Day (ICD-10-PCS; 2018-07-13)
PROC: 5A1D70Z Performance of Urinary Filtration, Intermittent, Less than 6 Hours Per Day (ICD-10-PCS; 2018-07-14)
DX: E87.5 Hyperkalemia (principal); N18.6 End stage renal disease; J96.90 Respiratory failure, unspecified, unspecified whether with hypoxia or hypercapnia; I13.2 Hypertensive heart and chronic kidney disease with heart failure and with stage 5 chronic kidney disease, or end stage renal disease; I42.9 Cardiomyopathy, unspecified; I50.22 Chronic systolic (congestive) heart failure; D64.9 Anemia, unspecified; F17.210 Nicotine dependence, cigarettes, uncomplicated; G47.30 Sleep apnea, unspecified; F32.9 Major depressive disorder, single episode, unspecified; I25.10 Atherosclerotic heart disease of native coronary artery without angina pectoris; J44.9 Chronic obstructive pulmonary disease, unspecified; M79.7 Fibromyalgia; Z91.19 Patient's noncompliance with other medical treatment and regimen; Z95.5 Presence of coronary angioplasty implant and graft; Z99.2 Dependence on renal dialysis; I25.2 Old myocardial infarction; Z91.15 Patient's noncompliance with renal dialysis; Z99.81 Dependence on supplemental oxygen; Z79.899 Other long term (current) drug therapy
CPT/HCPCS: 36415; 36600; 71045; 80048; 80053; 80069; 82140; 82803; 82948; 83605; 83735; 84100; 84145; 84484; 85018; 85025; 85610; 85730; 87040; 87070; 93005; 94640; 94660; 94760; 96374; 96375; 97116; 97161; 97530; 99285; G0257; G0378; J0610; J0885; J1644; J1815; J3490; J7030

== ENCOUNTER 2018-09-16 15:45 | Emergency (ER) | payer MEDICARE, MEDICAID ==
[~2018-09-16] VITALS: Ht 182.9 cm; Wt 81.0 kg
[~2018-09-16 15:45] MED LIST changes: +ALBU18HF2 INH; -ALBU8HFA PO; +ASPI81TA52 PO; -CLON-529 PO; +CLON0.1T PO; +DOCU-329 PO; -DOCU240C26 PO; -LACT10SO PO; -LIDO30CR23 TOP; -LOSA25TA96 PO; +LOSA50TA3 PO; -NIFE90TA37 PO; +NIFE90TA44 PO; +NITR0.4T SL; +OXYC-150 PO; -OXYC-511 PO; +VIT1TABL50 PO; -VITA0.4T16 PO
[2018-09-16 16:19] VITALS: BP 150/80
== END 2018-09-16 16:12 | disposition home or self-care (01) ==
LOC: ER 15:46
DX: T82.838A Hemorrhage due to vascular prosthetic devices, implants and grafts, initial encounter (principal); I13.2 Hypertensive heart and chronic kidney disease with heart failure and with stage 5 chronic kidney disease, or end stage renal disease; N18.6 End stage renal disease; I50.9 Heart failure, unspecified; I48.91 Unspecified atrial fibrillation; I25.10 Atherosclerotic heart disease of native coronary artery without angina pectoris; I25.2 Old myocardial infarction; J44.9 Chronic obstructive pulmonary disease, unspecified; F32.9 Major depressive disorder, single episode, unspecified; Z99.2 Dependence on renal dialysis; Z56.0 Unemployment, unspecified; Z79.82 Long term (current) use of aspirin; Z79.899 Other long term (current) drug therapy
CPT/HCPCS: 99284

== ENCOUNTER 2019-04-19 08:07 | Day surgery (SDC) | payer MEDICARE, MEDICAID ==
[~2019-04-19] VITALS: Ht 182.9 cm; Wt 92.1 kg
--- NOTE | 2019-04-19 08:20 | NUR ---
Pt arrived to unit in wheelchair accompanied by son. Pt ambulated independently in to bed & oriented to room, including TV and call light use.
[2019-04-19 08:30] VITALS: BP 135/78
[2019-04-19] MEDS ORDERED: mometasone TOP (09:12)
[2019-04-19] MEDS ORDERED: PATI8.4P PO (09:12)
[2019-04-19] MEDS ORDERED: ATOR10TA70 PO (09:12)
[2019-04-19] MEDS ORDERED: FOLI0.8T22 PO (09:12)
[2019-04-19] MEDS ORDERED: BUDE10.22 IH (09:12)
[2019-04-19] MEDS ORDERED: BUME2TAB7 PO (09:12)
[2019-04-19] MEDS ORDERED: CLOB30CR11 PO (09:12)
[2019-04-19 09:39] VITALS: BP 140/71
[2019-04-19 09:45] VITALS: BP 132/75
[2019-04-19 10:00] VITALS: BP 146/76
[2019-04-19] MEDS ORDERED: albumin 25% 100mL bottle x 1 IV PRN (10:05)
[2019-04-19 10:15] VITALS: BP 137/59
[2019-04-19 10:30] VITALS: BP_SYST 130; BP_DIAS 43; BP_DIAS 46
--- NOTE | 2019-04-19 10:30 | NUR ---
Pt declined IV start and albumin. Education provided on purpose of albumin, pt continued to decline. SAULO Clemente notified.
== END 2019-04-19 10:45 | disposition home or self-care (01) ==
LOC: SSTAY O 08:07
PROVIDERS: ATTEND Radiology Diagnostic Radiology
DX: R18.8 Other ascites (principal); I12.0 Hypertensive chronic kidney disease with stage 5 chronic kidney disease or end stage renal disease; N18.6 End stage renal disease; G47.30 Sleep apnea, unspecified; I25.2 Old myocardial infarction; J44.9 Chronic obstructive pulmonary disease, unspecified; I42.9 Cardiomyopathy, unspecified; Z99.2 Dependence on renal dialysis; Z95.5 Presence of coronary angioplasty implant and graft; Z79.899 Other long term (current) drug therapy; Z98.890 Other specified postprocedural states
CPT/HCPCS: 49083; C1729

== ENCOUNTER 2019-06-05 07:40 | Day surgery (SDC) | payer MEDICARE, MEDICAID ==
[~2019-06-05] VITALS: Ht 182.9 cm; Wt 92.0 kg
[2019-06-05] VITALS (7 sets, daily range): BP systolic 127–149; BP diastolic 66–79
[~2019-06-05 07:40] MED LIST changes: +ATOR10TA70 PO; +BUDE10.22 IH; +BUME2TAB7 PO; +CLOB30CR11 PO; -CLOP75TA15 PO; -ETHA25TA4 PO; +FOLI0.8T22 PO; +PATI8.4P PO; -VIT1TABL50 PO; +mometasone TOP
[2019-06-05] MEDS ORDERED: normal saline 1000ml 1,000 ML IV PRN (08:05)
[2019-06-05] MEDS ORDERED: albumin 25% 100mL bottle x 1 IV PRN (08:05)
== END 2019-06-05 11:10 | disposition home or self-care (01) ==
LOC: SSTAY O 07:40 → MED 3N 07:45 → SSTAY O 11:10
PROVIDERS: ATTEND Radiology Diagnostic Radiology
DX: R18.8 Other ascites (principal); I12.0 Hypertensive chronic kidney disease with stage 5 chronic kidney disease or end stage renal disease; N18.6 End stage renal disease; G47.30 Sleep apnea, unspecified; I25.2 Old myocardial infarction; J44.9 Chronic obstructive pulmonary disease, unspecified; Z98.890 Other specified postprocedural states; Z95.5 Presence of coronary angioplasty implant and graft; Z88.5 Allergy status to narcotic agent; Z88.2 Allergy status to sulfonamides; Z79.899 Other long term (current) drug therapy; Z79.82 Long term (current) use of aspirin
CPT/HCPCS: 49083; C1729; P9047

== ENCOUNTER 2019-07-17 08:36 | Day surgery (SDC) | payer MEDICARE, MEDICAID ==
[~2019-07-17] VITALS: Ht 172.7 cm; Wt 90.4 kg
[~2019-07-17 08:36] MED LIST changes: -CLOB30CR11 PO
[2019-07-17 09:00] VITALS: BP 125/70
[2019-07-17] MEDS ORDERED: normal saline 1000ml 1,000 ML IV SCH (09:15)
[2019-07-17 09:38] LABS: BASOPHILS # (AUTO) 0.1 X10'3 (0-0.2); BASOPHILS % (AUTO) 1.3 % (0-1); EOSINOPHILS # (AUTO) 0.6 X10'3 (0-0.9); HEMATOCRIT 30.2 % (42.0-52.0); HEMOGLOBIN 9.6 g/dl (14.0-17.9); LYMPHOCYTES # (AUTO) 1.3 X10'3 (1.1-4.8); MEAN CORPUSCULAR HGB CONC 31.9 g/dL (33.0-36.5); MEAN CORPUSCULAR VOLUME 87.7 FL (78-98); MEAN PLATELET VOLUME 7.6 FL (7.4-10.4); MONOCYTES % (AUTO) 12.4 % (2-12); NEUTROPHILS # (AUTO) 4.7 X10'3 (1.8-7.7); NEUTROPHILS % (AUTO) 61.3 % (42-75); PLATELET COUNT 286 X10'3 (140-440); RED BLOOD COUNT 3.44 X10'6 (4.70-6.10); RED CELL DISTRIBUTION WIDTH 17.6 % (11.5-14.5); WHITE BLOOD COUNT 7.7 X10'3 (4.5-11.0)
[2019-07-17 09:55] LABS: ALBUMIN 2.1 G/DL (3.4-5.0); ANION GAP 8 (8-16); BLOOD UREA NITROGEN 34 MG/DL (7-18); BUN/CREATININE RATIO 5.8 (5.4-32.0); CHLORIDE 101 MMOL/L (99-107); CREATININE 5.89 MG/DL (0.60-1.10); GLUCOSE 120 MG/DL (70-104); POTASSIUM 5.3 MMOL/L (3.5-5.1); SODIUM 138 MMOL/L (135-145); TOTAL CARBON DIOXIDE 29.5 MMOL/L (24-32); eGFR 10 ML/MIN
[2019-07-17] MEDS ORDERED: iohexol 300mg/ml 100ml inj. ONE (10:21)
[2019-07-17] MEDS ORDERED: heparin 1,000unit/ml 10ml vial 10 ML ONE (10:33)
[2019-07-17] MEDS ORDERED: midazolam 2 mg/2 ml injection ONE (10:33)
[2019-07-17] MEDS ORDERED: fentaNYL/PF 50MCG/1 ML 2ML syringe ONE (10:33)
--- NOTE | 2019-07-17 11:00 | NUR ---
IR NURSES AND DR IN PT ROOM, PT STATES PROCEDURE TAKING TOO LONG TO START, PT NOW STATES DOES NOT WANT THE PROCEDURE. DR HURTADO AND IR NURSE RONAN LOYD, AND MYSELF AND JULI, WITH BEDSIDE TEACHING REGARDING TIME IT TAKES TO PREPARE FOR PROCEDURE AND PROCEDURE NECESSITY, AND RATIONALS. PT STILL STATES DOES NOT WANT PROCEDURE TODAY. THAT THE NEW DIALYSIS NURSES ARE THE ONLY ONES THAT HAVE DIFFICULTY WITH THE FLOW. Addendum: 07/17/19 at 1720 by Rosemary Boswell RN Amended: Links added.
[2019-07-17 11:15] VITALS: BP 121/68
--- NOTE | 2019-07-17 11:20 | NUR ---
PT STILL REFUSES PROCEDURE AFTER LENGTHY DISCUSSION WITH DR AND NURSES. CALL TO SON TO TX PT HOME. ASSISTED PT TO DRESS. Addendum: 07/17/19 at 1722 by Rosemary Boswell RN Amended: Links added.
== END 2019-07-17 11:35 | disposition home or self-care (01) ==
LOC: SSTAY O 08:36
PROVIDERS: ATTEND Radiology Vascular & Interventional Radiology
DX: T82.590A Other mechanical complication of surgically created arteriovenous fistula, initial encounter (principal); Z53.29 Procedure and treatment not carried out because of patient's decision for other reasons; N18.6 End stage renal disease; F17.210 Nicotine dependence, cigarettes, uncomplicated; Z79.899 Other long term (current) drug therapy; Z88.5 Allergy status to narcotic agent; Z88.2 Allergy status to sulfonamides; Z99.2 Dependence on renal dialysis; Z79.82 Long term (current) use of aspirin; Y83.2 Surgical operation with anastomosis, bypass or graft as the cause of abnormal reaction of the patient, or of later complication, without mention of misadventure at the time of the procedure; Y92.89 Other specified places as the place of occurrence of the external cause
CPT/HCPCS: 36415; 80048; 85025; 85610; J1644; J2250; J3010; Q9967

== ENCOUNTER 2019-07-31 07:53 | Day surgery (SDC) | payer MEDICARE, MEDICAID ==
[~2019-07-31] VITALS: Ht 175.3 cm; Wt 86.9 kg
[2019-07-31 08:10] VITALS: BP 101/56
[2019-07-31] MEDS ORDERED: albumin 25% 100mL bottle x 1 IV PRN (08:30)
[2019-07-31] MEDS ORDERED: normal saline 1000ml 1,000 ML IV PRN (08:30)
[2019-07-31 09:37] VITALS: BP 120/81
[2019-07-31 09:52] VITALS: BP 120/42
[2019-07-31 10:25] VITALS: BP 133/67
--- NOTE | 2019-07-31 10:31 | NUR ---
pt refusing iv and albumin administration. pt educated on the use and benefit of albumin and continues to refuse. vs stable as charted. Addendum: 07/31/19 at 1032 by Chata Cobian RN also discussed the risks of not having albumin administered. pt verbalized understanding.
[2019-07-31 10:40] VITALS: BP 123/67
== END 2019-07-31 10:40 | disposition home or self-care (01) ==
LOC: SSTAY O 07:53
PROVIDERS: ATTEND Radiology Diagnostic Radiology
DX: R18.8 Other ascites (principal); I12.0 Hypertensive chronic kidney disease with stage 5 chronic kidney disease or end stage renal disease; N18.6 End stage renal disease; G47.30 Sleep apnea, unspecified; I25.2 Old myocardial infarction; J44.9 Chronic obstructive pulmonary disease, unspecified; I42.9 Cardiomyopathy, unspecified; Z98.890 Other specified postprocedural states; Z88.2 Allergy status to sulfonamides; Z88.5 Allergy status to narcotic agent; Z79.899 Other long term (current) drug therapy
CPT/HCPCS: 49083

== ENCOUNTER 2019-09-27 08:12 | Day surgery (SDC) | payer MEDICARE, MEDICAID ==
[~2019-09-27] VITALS: Ht 170.2 cm; Wt 85.7 kg
[2019-09-27 08:00] VITALS: BP 99/65
[~2019-09-27 08:12] MED LIST changes: -DOCU-329 PO; +DOCU250C96 PO
[2019-09-27] MEDS ORDERED: albumin 25% 100mL bottle x 1 IV PRN (08:40)
[2019-09-27] MEDS ORDERED: normal saline 1000ml 1,000 ML IV PRN (08:40)
== END 2019-09-27 08:30 | disposition home or self-care (01) ==
LOC: SSTAY O 08:12
PROVIDERS: ATTEND Radiology Vascular & Interventional Radiology
DX: R18.8 Other ascites (principal); R14.0 Abdominal distension (gaseous); I12.0 Hypertensive chronic kidney disease with stage 5 chronic kidney disease or end stage renal disease; N18.6 End stage renal disease; G47.30 Sleep apnea, unspecified; I25.2 Old myocardial infarction; J44.9 Chronic obstructive pulmonary disease, unspecified; Z95.5 Presence of coronary angioplasty implant and graft; Z98.890 Other specified postprocedural states; F17.290 Nicotine dependence, other tobacco product, uncomplicated; Z88.5 Allergy status to narcotic agent; Z88.2 Allergy status to sulfonamides; Z79.899 Other long term (current) drug therapy; Z79.82 Long term (current) use of aspirin
CPT/HCPCS: 76705

== ENCOUNTER 2019-12-17 12:11 | Emergency (ER) | payer MEDICARE, MEDICAID ==
[~2019-12-17] VITALS: Ht 182.9 cm; Wt 84.8 kg
[~2019-12-17 12:11] MED LIST changes: -CARV-50 PO; +CARV25TA2 PO; +FLUT16SP11 BOTHNARES; -FOLI0.8T22 PO; -PATI8.4P PO; -mometasone TOP
[2019-12-17 13:26] LABS: BASOPHILS # (AUTO) 0.1 X10'3 (0-0.2); BASOPHILS % (AUTO) 1.1 % (0-1); EOSINOPHILS # (AUTO) 0.1 X10'3 (0-0.9); EOSINOPHILS % (AUTO) 1.4 % (0-6); HEMATOCRIT 31.6 % (42.0-52.0); HEMOGLOBIN 10.1 g/dl (14.0-17.9); LYMPHOCYTES # (AUTO) 1.3 X10'3 (1.1-4.8); LYMPHOCYTES % (AUTO) 14.7 % (21-51); MEAN CORPUSCULAR HEMOGLOBIN 28.8 PG (27.0-31.0); MEAN CORPUSCULAR HGB CONC 31.9 g/dL (33.0-36.5); MEAN CORPUSCULAR VOLUME 90.2 FL (78-98); MEAN PLATELET VOLUME 8.6 FL (7.4-10.4); MONOCYTES # (AUTO) 0.7 X10'3 (0-0.9); MONOCYTES % (AUTO) 7.7 % (2-12); NEUTROPHILS # (AUTO) 6.8 X10'3 (1.8-7.7); NEUTROPHILS % (AUTO) 75.1 % (42-75); PLATELET COUNT 279 X10'3 (140-440); RED CELL DISTRIBUTION WIDTH 18.3 % (11.5-14.5); WHITE BLOOD COUNT 9.1 X10'3 (4.5-11.0)
[2019-12-17 13:47] LABS: PARTIAL THROMBOPLASTIN TIME 34 SECONDS (22-32)
[2019-12-17 13:52] LABS: ALANINE AMINOTRANSFERASE 9 U/L (12-78); ALBUMIN 2.7 G/DL (3.4-5.0); ALBUMIN/GLOBULIN RATIO 0.5 (1.1-1.5); ALKALINE PHOSPHATASE 108 IU/L (46-116); ANION GAP 10 (8-16); BILIRUBIN,TOTAL 0.6 MG/DL (0.1-1.0); BLOOD UREA NITROGEN 80 MG/DL (7-18); BUN/CREATININE RATIO 12.9 (5.4-32.0); CALCIUM 9.5 MG/DL (8.5-10.1); CHLORIDE 100 MMOL/L (99-107); CREATININE 6.21 MG/DL (0.60-1.10); ETHANOL < 0.010 GM/DL (0.0-0.010); GLUCOSE 75 MG/DL (70-104); LIPASE < 50 U/L (73-393); SODIUM 137 MMOL/L (135-145); eGFR 9 ML/MIN
[2019-12-17 13:56] LABS: ASPARTATE AMINO TRANSFERASE 19 U/L (10-37)
[2019-12-17 13:58] LABS: POTASSIUM 6.9 MMOL/L (3.5-5.1)
[2019-12-17 14:09] LABS: ANISOCYTOSIS 2+; ELLIPTOCYTES 1+; PLATELET ESTIMATE NORMAL; ROULEAUX 1+; SCHISTOCYTES FEW
[2019-12-17] MEDS ORDERED: AMOX-422 PO (14:28)
[2019-12-17] MEDS ORDERED: AZIT-72 PO (14:28)
--- NOTE | 2019-12-17 15:16 | NUR ---
PT'S SON ARRIVES TO TAKE PT TO [facility] FOR DIALYSIS SINCE HE MISSED HIS APPT TODAY. THEY ARE WAITING THERE FOR HIM. ASSIST PT TO A W/C AND TAKE HIM OUT TO HIS CAR.
[2019-12-17 15:17] VITALS: BP 162/77
== END 2019-12-17 15:23 | disposition home or self-care (01) ==
LOC: ER 12:12
DX: E87.5 Hyperkalemia (principal); J18.9 Pneumonia, unspecified organism; I13.2 Hypertensive heart and chronic kidney disease with heart failure and with stage 5 chronic kidney disease, or end stage renal disease; N18.6 End stage renal disease; I50.9 Heart failure, unspecified; I25.2 Old myocardial infarction; J44.9 Chronic obstructive pulmonary disease, unspecified; I25.10 Atherosclerotic heart disease of native coronary artery without angina pectoris; Z56.0 Unemployment, unspecified; Z99.2 Dependence on renal dialysis; Z88.2 Allergy status to sulfonamides; Z88.5 Allergy status to narcotic agent; Z79.899 Other long term (current) drug therapy; Z79.82 Long term (current) use of aspirin
CPT/HCPCS: 36415; 71045; 80053; 80320; 82140; 83605; 83690; 83880; 84145; 85008; 85025; 85610; 85730; 87040; 93005; 99285

== ENCOUNTER 2019-12-31 11:01 | Emergency (ER) | payer MEDICARE, MEDICAID ==
[~2019-12-31] VITALS: Ht 182.9 cm; Wt 84.8 kg
[2019-12-31 11:35] LABS: BASOPHILS # (AUTO) 0.1 X10'3 (0-0.2); BASOPHILS % (AUTO) 0.9 % (0-1); EOSINOPHILS # (AUTO) 0.1 X10'3 (0-0.9); EOSINOPHILS % (AUTO) 1.6 % (0-6); HEMOGLOBIN 9.7 g/dl (14.0-17.9); LYMPHOCYTES # (AUTO) 1.1 X10'3 (1.1-4.8); LYMPHOCYTES % (AUTO) 14.4 % (21-51); MEAN CORPUSCULAR HEMOGLOBIN 29.1 PG (27.0-31.0); MEAN CORPUSCULAR HGB CONC 32.3 g/dL (33.0-36.5); MEAN CORPUSCULAR VOLUME 90.2 FL (78-98); MEAN PLATELET VOLUME 7.7 FL (7.4-10.4); MONOCYTES # (AUTO) 0.4 X10'3 (0-0.9); MONOCYTES % (AUTO) 5.9 % (2-12); NEUTROPHILS # (AUTO) 5.8 X10'3 (1.8-7.7); NEUTROPHILS % (AUTO) 77.2 % (42-75); PLATELET COUNT 278 X10'3 (140-440); RED BLOOD COUNT 3.33 X10'6 (4.70-6.10); RED CELL DISTRIBUTION WIDTH 18.2 % (11.5-14.5); WHITE BLOOD COUNT 7.5 X10'3 (4.5-11.0)
[2019-12-31 11:49] LABS: ALANINE AMINOTRANSFERASE 11 U/L (12-78); ALBUMIN 2.5 G/DL (3.4-5.0); ALBUMIN/GLOBULIN RATIO 0.5 (1.1-1.5); ALKALINE PHOSPHATASE 97 IU/L (46-116); ANION GAP 11 (8-16); ASPARTATE AMINO TRANSFERASE 9 U/L (10-37); BILIRUBIN,TOTAL 0.6 MG/DL (0.1-1.0); BLOOD UREA NITROGEN 80 MG/DL (7-18); CALCIUM 9.4 MG/DL (8.5-10.1); CHLORIDE 102 MMOL/L (99-107); CREATININE 8.88 MG/DL (0.60-1.10); GLUCOSE 102 MG/DL (70-104); SODIUM 139 MMOL/L (135-145); TOTAL CARBON DIOXIDE 26.1 MMOL/L (24-32); TOTAL PROTEIN 7.7 G/DL (6.4-8.2); eGFR 6 ML/MIN
[2019-12-31 11:49] LABS: CLARITY,URINE CLOUDY (Clear); COLOR,URINE YELLOW (Yellow); GLUCOSE, URINE 100 mg/dl (Neg); KETONES,URINE NEGATIVE (Neg); LEUKOCYTE ESTERASE ,URINE SMALL (Neg); NITRITES, URINE NEGATIVE (Neg); OCCULT BLOOD,URINE LARGE (Neg); PH,URINE 8.5 (4.8-8.0); PROTEIN,URINE 100 mg/dl (Neg); UA COLLECTION TYPE STRAIGHT CATH; UROBILINOGEN,URINE 0.2 E.U/dL (0.2-1.0)
[2019-12-31 11:56] LABS: POTASSIUM 7.1 MMOL/L (3.5-5.1)
[2019-12-31 11:58] LABS: SQUAMOUS EPITHELIAL CELL,UR FEW /LPF (FEW); TRANSITIONAL EPI CELLS,URINE FEW /HPF
[2019-12-31 11:59] LABS: BACTERIA,URINE 1+ /HPF (Neg)
[2019-12-31] MEDS ORDERED: PATIROMER CALCIUM SORBITEX 8.4 GM POWD.PACK PO STA (12:12)
[2019-12-31] MEDS ORDERED: albuterol 2.5 MG/3 ML nebule NEB ONE (12:25)
--- NOTE | 2019-12-31 12:50 | NUR ---
Spoke to patient's son about condition and need for dialysis. He agrees to pick the patient up from [facility] after his dialysis is complete if we can send him via [facility]. [facility] contacted and will transport the patient.
[2019-12-31 13:32] VITALS: BP 170/79
== END 2019-12-31 13:26 | disposition home or self-care (01) ==
LOC: ER 11:02
DX: I13.2 Hypertensive heart and chronic kidney disease with heart failure and with stage 5 chronic kidney disease, or end stage renal disease (principal); I50.9 Heart failure, unspecified; N18.6 End stage renal disease; R62.7 Adult failure to thrive; I48.91 Unspecified atrial fibrillation; I25.10 Atherosclerotic heart disease of native coronary artery without angina pectoris; I25.2 Old myocardial infarction; J44.9 Chronic obstructive pulmonary disease, unspecified; F32.9 Major depressive disorder, single episode, unspecified; Z99.2 Dependence on renal dialysis; Z98.890 Other specified postprocedural states; Z56.0 Unemployment, unspecified; Z88.2 Allergy status to sulfonamides; Z88.5 Allergy status to narcotic agent; Z79.82 Long term (current) use of aspirin; Z79.899 Other long term (current) drug therapy
CPT/HCPCS: 36415; 71045; 80053; 81001; 82948; 85025; 87088; 93005; 94640; 94760; 99285

== ENCOUNTER 2019-12-31 15:26 | Inpatient (IN) | payer MEDICARE, MEDICAID ==
[~2019-12-31] VITALS: Ht 182.9 cm; Wt 83.0 kg
[2019-12-31] MEDS ORDERED: CefTRIAXone 2gm/D5W 50ml BAG 50 ML IV ONE (15:40)
[2019-12-31] MEDS ORDERED: furosemide 10 MG/1 ML 10ml inj IV ONE (16:10)
[2019-12-31] MEDS ORDERED: ondansetron/PF 4mg/2ml inj IV PRN (16:20)
[2019-12-31] MEDS ORDERED: acetaminophen 325mg tablet PO PRN (16:20)
[2019-12-31] MEDS ORDERED: epoetin 20,000 units/ml inj IV ONE (16:20)
[2019-12-31] MEDS ORDERED: LIDOcaine 1% (10mg/ml) 2ml vial SQ ONE (16:20)
[2019-12-31] MEDS ORDERED: heparin 1,000 units/ml 10ml inj IV ONE (16:20)
[2019-12-31] MEDS ORDERED: normal saline 1000ml 250 ML IV PRN (16:20)
[2019-12-31] MEDS ORDERED: bisacodyl 10mg suppository rectal RC PRN (16:20)
[2019-12-31] MEDS ORDERED: nitroGLYCERIN 0.4mg SUBLingual tab SL PRN (16:45)
[2019-12-31] MEDS ORDERED: non-formulary drug (Ondansetron Hcl (Zofran) 1 TAB) PO PRN (16:45)
[2019-12-31 17:01] LABS: ABG BASE EXCESS -3.6 mmol/L (-2.0-2.0); ABG HCO3 21.7 mmol/L (22.0-26.0); ABG OXYGEN SATURATION 84.6 % (94-97); ABG PCO2 (T) 39.8 mmHg (35.0-48.0); ABG PO2 (T) 54.4 mmHg (75.0-100.0); ALLEN'S TEST POSITIVE; FCOHb 1.5 % (0.0-3.9); FLOW 3 L/min; FMetHb 0.3 % (0.0-1.5); FO2Hb 83.1 % (94-97); TOTAL HEMOGLOBIN 10.8 G/dl (14.0-18.0)
[2019-12-31 18:07] LABS: HEMATOCRIT 32.5 % (42.0-52.0); HEMOGLOBIN 10.5 g/dl (14.0-17.9); MEAN CORPUSCULAR HEMOGLOBIN 29.1 PG (27.0-31.0); MEAN CORPUSCULAR HGB CONC 32.2 g/dL (33.0-36.5); MEAN CORPUSCULAR VOLUME 90.5 FL (78-98); MEAN PLATELET VOLUME 7.9 FL (7.4-10.4); PLATELET COUNT 299 X10'3 (140-440); RED BLOOD COUNT 3.59 X10'6 (4.70-6.10); RED CELL DISTRIBUTION WIDTH 18.7 % (11.5-14.5); WHITE BLOOD COUNT 7.9 X10'3 (4.5-11.0)
[2019-12-31 18:26] LABS: ALANINE AMINOTRANSFERASE 8 U/L (12-78); ALBUMIN 2.5 G/DL (3.4-5.0); ALBUMIN/GLOBULIN RATIO 0.5 (1.1-1.5); ALKALINE PHOSPHATASE 100 IU/L (46-116); ANION GAP 11 (8-16); ASPARTATE AMINO TRANSFERASE 13 U/L (10-37); BILIRUBIN,TOTAL 0.6 MG/DL (0.1-1.0); BLOOD UREA NITROGEN 81 MG/DL (7-18); BUN/CREATININE RATIO 8.8 (5.4-32.0); CHLORIDE 102 MMOL/L (99-107); GLUCOSE 101 MG/DL (70-104); SODIUM 140 MMOL/L (135-145); TOTAL CARBON DIOXIDE 27.2 MMOL/L (24-32); eGFR 6 ML/MIN
[2019-12-31 18:32] LABS: PHOSPHORUS 9.4 MG/DL (2.3-4.5)
[2019-12-31 18:33] LABS: POTASSIUM 6.9 MMOL/L (3.5-5.1)
[2019-12-31] MEDS: isosorbide mononitrate 30mg tab.SR.24H PO SCH (18:41)
[2019-12-31] MEDS: budesonide 0.5mg/2ml UD nebule IH SCH (19:00)
[2019-12-31] MEDS: albuterol 2.5 MG/3 ML nebule NEB SCH (19:00)
[2019-12-31 19:30] VITALS: BP 206/94
[2019-12-31 22:00] VITALS: BP 173/88
[2020-01-01] VITALS (11 sets, daily range): BP systolic 88–169; BP diastolic 44–84
[2020-01-01] MEDS: NIFEdipine XL 30mg tablet PO SCH ×3 (00:28→20:46)
[2020-01-01] MEDS: sevelamer carbonate 800mg tablet PO SCH ×4 (00:28→18:00)
[2020-01-01] MEDS: heparin, porcine 5000 units/ml vial SQ SCH ×3 (00:28→20:48)
[2020-01-01] MEDS: docusate sod 100mg capsule PO SCH ×3 (00:29→20:49)
[2020-01-01] MEDS: bumetanide 1mg tablet PO SCH ×3 (00:29→20:49)
[2020-01-01] MEDS: carVEDilol 12.5mg tablet PO SCH ×3 (00:29→20:49)
[2020-01-01] MEDS: cloNIDine 0.1 mg tablet PO SCH ×4 (00:29→21:00)
[2020-01-01] MEDS: gabapentin 100mg capsule PO SCH ×3 (00:29→20:49)
[2020-01-01] MEDS: losartan 50mg tablet PO SCH ×3 (00:30→20:00)
[2020-01-01 06:06] LABS: BASOPHILS # (AUTO) 0.1 X10'3 (0-0.2); BASOPHILS % (AUTO) 0.7 % (0-1); EOSINOPHILS # (AUTO) 0.1 X10'3 (0-0.9); EOSINOPHILS % (AUTO) 1.2 % (0-6); HEMATOCRIT 30.9 % (42.0-52.0); LYMPHOCYTES # (AUTO) 0.8 X10'3 (1.1-4.8); LYMPHOCYTES % (AUTO) 10.1 % (21-51); MEAN CORPUSCULAR HEMOGLOBIN 29.1 PG (27.0-31.0); MEAN CORPUSCULAR HGB CONC 32.4 g/dL (33.0-36.5); MEAN CORPUSCULAR VOLUME 89.8 FL (78-98); MEAN PLATELET VOLUME 8.3 FL (7.4-10.4); MONOCYTES # (AUTO) 0.3 X10'3 (0-0.9); MONOCYTES % (AUTO) 4.2 % (2-12); NEUTROPHILS # (AUTO) 6.9 X10'3 (1.8-7.7); NEUTROPHILS % (AUTO) 83.8 % (42-75); PLATELET COUNT 249 X10'3 (140-440); RED BLOOD COUNT 3.45 X10'6 (4.70-6.10); RED CELL DISTRIBUTION WIDTH 18.2 % (11.5-14.5); WHITE BLOOD COUNT 8.2 X10'3 (4.5-11.0)
[2020-01-01 06:16] LABS: ALANINE AMINOTRANSFERASE 8 U/L (12-78); ALBUMIN 2.1 G/DL (3.4-5.0); ALBUMIN/GLOBULIN RATIO 0.4 (1.1-1.5); ALKALINE PHOSPHATASE 91 IU/L (46-116); ANION GAP 9 (8-16); ASPARTATE AMINO TRANSFERASE 12 U/L (10-37); BILIRUBIN,TOTAL 0.6 MG/DL (0.1-1.0); BLOOD UREA NITROGEN 43 MG/DL (7-18); BUN/CREATININE RATIO 7.8 (5.4-32.0); CALCIUM 9.9 MG/DL (8.5-10.1); CHLORIDE 103 MMOL/L (99-107); GLUCOSE 94 MG/DL (70-104); MAGNESIUM 2.5 MG/DL (1.5-2.4); PHOSPHORUS 5.9 MG/DL (2.3-4.5); POTASSIUM 4.9 MMOL/L (3.5-5.1); SODIUM 140 MMOL/L (135-145); TOTAL CARBON DIOXIDE 28.2 MMOL/L (24-32); TOTAL PROTEIN 7.1 G/DL (6.4-8.2); eGFR 11 ML/MIN
--- NOTE | 2020-01-01 06:27 | NUR ---
Patient in room PCU 3023. I have received report from Jocy LOYD and had the opportunity to ask questions and assume patient care.
--- NOTE | 2020-01-01 06:42 | NUR ---
Problems reprioritized. Patient report given, questions answered & plan of care reviewed with EVERT Villeda.
[2020-01-01] MEDS: budesonide 0.5mg/2ml UD nebule IH SCH ×2 (07:40→19:38)
[2020-01-01] MEDS: albuterol 2.5 MG/3 ML nebule NEB SCH ×4 (07:40→19:38)
[2020-01-01] MEDS: aspirin 81mg tablet.DR PO SCH (07:59)
[2020-01-01] MEDS: isosorbide mononitrate 30mg tab.SR.24H PO SCH (07:59)
[2020-01-01] MEDS: atorvastatin 10mg tablet PO SCH (07:59)
[2020-01-01] MEDS: folic acid 1mg tablet PO SCH (07:59)
[2020-01-01] MEDS: fluticasone nasal spray 16GM bottle NS SCH (08:00)
[2020-01-01] MEDS ORDERED: docusate sod 250mg capsule PO SCH (08:00)
--- NOTE | 2020-01-01 08:13 | NUR ---
Unable to DART patient at this time as he is still sleepy/confused and falls asleep in the middle of questions, will continue to monitor closely.
--- NOTE | 2020-01-01 11:26 | NUR ---
Spoke to the patients son, Kareem, who is also his caregiver. RN updated him on the pts current status and the plan of care. Will continue to monitor the patient closely.
[2020-01-01] MEDS ORDERED: nicotine 21mg patch - 24 hr TD ONE (13:55)
[2020-01-01] MEDS: piperacillin/tazo 3.375gm/50ml 50 ML IV SCH ×2 (13:55→16:50)
[2020-01-01] MEDS ORDERED: vancomycin/NS 1 GM ADD-VANTAGE 250 ML IV PRN (13:55)
[2020-01-01] MEDS ORDERED: vancomycin/NS 1 GM ADD-VANTAGE 250 ML IV ONE (14:30)
[2020-01-01] MEDS: oxyCODONE/APAP 10/325mg tablet PO PRN (15:35)
--- NOTE | 2020-01-01 18:18 | NUR ---
Problems reprioritized. Patient report given, questions answered & plan of care reviewed with Sabra LOYD and Jocy LOYD.
--- NOTE | 2020-01-01 18:30 | NUR ---
Patient in room PCU 3023. I have received report from Christiana LOYD and had the opportunity to ask questions and assume patient care.
[2020-01-01] MEDS: HYDROcodone/acetaminophen 10/325mg tab PO PRN (20:56)
--- NOTE | 2020-01-01 22:17 | NUR ---
Patient desiring to AMA. Discussed patient condition with him and provided education on his plan of care and the risks. Pt axo4 answers all questions appropriately. Patient appears adverse to staying in hospital. Discussed patient desired to continue medical treatment and patient stated "I will continue trying and doing everything any doctor tells me but I just cannot do it from a hospital bed. I understand I am at higher risk if I leave the hospital but the risk of is welcoming as I carry god with me." Patient adamant about his desire to leave AMA. Pt provided teach back. "My potassium and phos and mag were high and I got hemodialysis and now they are lower. I can get a consultation for surgery outside the hospital. My wounds are improved from previous admission. I have 3 chairs at home with different positions that allow me to be comfortable and off my wounds." Discussed patient situation with primary RN and patient desire to AMA. AMA pending informing crane ladle person ASSOCIATE VICE PRESIDENT and patient ability to get a ride home.
[2020-01-02] VITALS (9 sets, daily range): BP systolic 84–143; BP diastolic 44–74
[2020-01-02] MEDS: oxyCODONE/APAP 10/325mg tablet PO PRN ×2 (01:23→16:16)
[2020-01-02] MEDS: piperacillin/tazo 3.375gm/50ml 50 ML IV SCH ×3 (01:23→20:29)
--- NOTE | 2020-01-02 04:19 | NUR ---
Patient BP dropped after pain and nausea medication was administered. He had been sitting in a recliner at bedside. He was moved back to bed from the recliner. Upon position change, patient responded with increased blood pressure and MAP.
[2020-01-02 05:46] LABS: BASOPHILS # (AUTO) 0.1 X10'3 (0-0.2); BASOPHILS % (AUTO) 1.5 % (0-1); EOSINOPHILS # (AUTO) 0.2 X10'3 (0-0.9); EOSINOPHILS % (AUTO) 3.6 % (0-6); HEMATOCRIT 25.1 % (42.0-52.0); HEMOGLOBIN 8.2 g/dl (14.0-17.9); LYMPHOCYTES # (AUTO) 1.1 X10'3 (1.1-4.8); LYMPHOCYTES % (AUTO) 18.5 % (21-51); MEAN CORPUSCULAR HEMOGLOBIN 29.4 PG (27.0-31.0); MEAN CORPUSCULAR HGB CONC 32.7 g/dL (33.0-36.5); MEAN CORPUSCULAR VOLUME 89.8 FL (78-98); MEAN PLATELET VOLUME 8.6 FL (7.4-10.4); MONOCYTES # (AUTO) 0.4 X10'3 (0-0.9); MONOCYTES % (AUTO) 7.1 % (2-12); NEUTROPHILS # (AUTO) 4.2 X10'3 (1.8-7.7); NEUTROPHILS % (AUTO) 69.3 % (42-75); PLATELET COUNT 226 X10'3 (140-440); RED CELL DISTRIBUTION WIDTH 18.3 % (11.5-14.5); WHITE BLOOD COUNT 6.1 X10'3 (4.5-11.0)
--- NOTE | 2020-01-02 06:00 | NUR ---
Patient in room PCU 3023. I have received report from Kay LOYD and had the opportunity to ask questions and assume patient care.
[2020-01-02 06:11] LABS: ALANINE AMINOTRANSFERASE 11 U/L (12-78); ALBUMIN/GLOBULIN RATIO 0.5 (1.1-1.5); ALKALINE PHOSPHATASE 74 IU/L (46-116); ANION GAP 10 (8-16); ASPARTATE AMINO TRANSFERASE 10 U/L (10-37); BILIRUBIN,TOTAL 0.4 MG/DL (0.1-1.0); BLOOD UREA NITROGEN 55 MG/DL (7-18); BUN/CREATININE RATIO 8.7 (5.4-32.0); CALCIUM 9.1 MG/DL (8.5-10.1); CHLORIDE 101 MMOL/L (99-107); CREATININE 6.34 MG/DL (0.60-1.10); GLUCOSE 120 MG/DL (70-104); MAGNESIUM 2.5 MG/DL (1.5-2.4); PHOSPHORUS 6.8 MG/DL (2.3-4.5); POTASSIUM 5.8 MMOL/L (3.5-5.1); SODIUM 139 MMOL/L (135-145); TOTAL CARBON DIOXIDE 28.5 MMOL/L (24-32); TOTAL PROTEIN 6.3 G/DL (6.4-8.2); VANCOMYCIN,RANDOM 12.7 UG/ML; eGFR 9 ML/MIN
--- NOTE | 2020-01-02 06:11 | NUR ---
Problems reprioritized. Patient report given, questions answered & plan of care reviewed with Christiana LOYD. patient stable upon transfer of care
[2020-01-02] MEDS: HYDROcodone/acetaminophen 10/325mg tab PO PRN ×3 (06:33→22:56)
[2020-01-02] MEDS: heparin, porcine 5000 units/ml vial SQ SCH ×2 (07:17→20:19)
[2020-01-02] MEDS: aspirin 81mg tablet.DR PO SCH (07:17)
[2020-01-02] MEDS: folic acid 1mg tablet PO SCH (07:17)
[2020-01-02] MEDS: atorvastatin 10mg tablet PO SCH (07:17)
[2020-01-02] MEDS: isosorbide mononitrate 30mg tab.SR.24H PO SCH (07:18)
[2020-01-02] MEDS: gabapentin 100mg capsule PO SCH (07:18)
[2020-01-02] MEDS: bumetanide 1mg tablet PO SCH ×2 (07:18→20:00)
[2020-01-02] MEDS: docusate sod 100mg capsule PO SCH ×2 (07:18→20:17)
[2020-01-02] MEDS: NIFEdipine XL 30mg tablet PO SCH ×2 (07:18→20:00)
[2020-01-02] MEDS: sevelamer carbonate 800mg tablet PO SCH ×3 (07:18→20:16)
[2020-01-02] MEDS: fluticasone nasal spray 16GM bottle NS SCH (07:18)
[2020-01-02] MEDS: carVEDilol 12.5mg tablet PO SCH ×2 (07:24→20:00)
[2020-01-02] MEDS: cloNIDine 0.1 mg tablet PO SCH ×3 (07:24→20:23)
[2020-01-02] MEDS: losartan 50mg tablet PO SCH ×2 (07:25→20:00)
[2020-01-02] MEDS: albuterol 2.5 MG/3 ML nebule NEB SCH ×4 (07:26→19:27)
[2020-01-02] MEDS: budesonide 0.5mg/2ml UD nebule IH SCH ×2 (07:26→19:27)
[2020-01-02] MEDS ORDERED: nicotine 21mg patch - 24 hr TD SCH (08:00)
[2020-01-02] MEDS ORDERED: normal saline 1000ml 250 ML IV PRN (08:00)
[2020-01-02] MEDS ORDERED: LIDOcaine 1% (10mg/ml) 2ml vial SQ ONE (08:00)
[2020-01-02] MEDS ORDERED: epoetin 20,000 units/ml inj IV ONE (08:00)
[2020-01-02] MEDS ORDERED: nicotine 14mg patch - 24hr TD SCH (08:00)
[2020-01-02] MEDS ORDERED: heparin 1,000 units/ml 10ml inj IV ONE (08:00)
--- NOTE | 2020-01-02 11:25 | NUR ---
Spoke with the patients son, Collin, and updated him on the patients current status.
[2020-01-02 11:55] LABS: HBSAG SCREEN Negative (Negative)
--- NOTE | 2020-01-02 18:36 | NUR ---
Problems reprioritized. Patient report given, questions answered & plan of care reviewed with Jenn LOYD.
--- NOTE | 2020-01-02 18:40 | NUR ---
I have received report from Christiana LOYD and had the opportunity to ask questions and assume patient care.
[2020-01-02] MEDS: lactobacillus rhamnosus 10,000 MMU CELLS/CAPSULE PO SCH (20:17)
[2020-01-03] VITALS (7 sets, daily range): BP systolic 94–174; BP diastolic 54–90
--- NOTE | 2020-01-03 01:48 | NUR ---
pt called 911 because I he did not want to use a bedpan. patient stated that he wanted to get up to the bedside commode. I educated patient that it was not safe to get him up to the bedside commode, but that I would help him on to a bedpan. Physical therapy notes said the patient "was mostly wheel chair bound and that it was not safe to transfer the patient." Bed alarm put on.
[2020-01-03] MEDS: VANCOMYCIN LEVEL IV SCH (03:00)
[2020-01-03 05:59] LABS: BASOPHILS # (AUTO) 0.1 X10'3 (0-0.2); BASOPHILS % (AUTO) 1.2 % (0-1); EOSINOPHILS # (AUTO) 0.2 X10'3 (0-0.9); EOSINOPHILS % (AUTO) 3.3 % (0-6); HEMATOCRIT 25.4 % (42.0-52.0); HEMOGLOBIN 8.2 g/dl (14.0-17.9); LYMPHOCYTES # (AUTO) 1.5 X10'3 (1.1-4.8); LYMPHOCYTES % (AUTO) 25.9 % (21-51); MEAN CORPUSCULAR HEMOGLOBIN 28.8 PG (27.0-31.0); MEAN CORPUSCULAR HGB CONC 32.2 g/dL (33.0-36.5); MEAN CORPUSCULAR VOLUME 89.4 FL (78-98); MEAN PLATELET VOLUME 8.4 FL (7.4-10.4); MONOCYTES # (AUTO) 0.5 X10'3 (0-0.9); MONOCYTES % (AUTO) 8.6 % (2-12); NEUTROPHILS # (AUTO) 3.6 X10'3 (1.8-7.7); PLATELET COUNT 195 X10'3 (140-440); RED BLOOD COUNT 2.84 X10'6 (4.70-6.10); RED CELL DISTRIBUTION WIDTH 18.7 % (11.5-14.5); WHITE BLOOD COUNT 5.8 X10'3 (4.5-11.0)
[2020-01-03 06:21] LABS: ALANINE AMINOTRANSFERASE 11 U/L (12-78); ALBUMIN 2.1 G/DL (3.4-5.0); ALBUMIN/GLOBULIN RATIO 0.5 (1.1-1.5); ALKALINE PHOSPHATASE 87 IU/L (46-116); ANION GAP 6 (8-16); ASPARTATE AMINO TRANSFERASE 10 U/L (10-37); BILIRUBIN,TOTAL 0.5 MG/DL (0.1-1.0); BLOOD UREA NITROGEN 38 MG/DL (7-18); BUN/CREATININE RATIO 8.1 (5.4-32.0); CHLORIDE 101 MMOL/L (99-107); CREATININE 4.72 MG/DL (0.60-1.10); GLUCOSE 84 MG/DL (70-104); MAGNESIUM 2.3 MG/DL (1.5-2.4); PHOSPHORUS 5.5 MG/DL (2.3-4.5); POTASSIUM 5.4 MMOL/L (3.5-5.1); SODIUM 137 MMOL/L (135-145); TOTAL CARBON DIOXIDE 30.4 MMOL/L (24-32); TOTAL PROTEIN 6.6 G/DL (6.4-8.2); VANCOMYCIN,RANDOM 10.9 UG/ML; eGFR 13 ML/MIN
--- NOTE | 2020-01-03 06:39 | NUR ---
Problems reprioritized. Patient report given, questions answered & plan of care reviewed with Ambika LOYD.
--- NOTE | 2020-01-03 06:40 | NUR ---
Patient in room PCU 3023. I have received report from Jenn LOYD and had the opportunity to ask questions and assume patient care.
[2020-01-03] MEDS: albuterol 2.5 MG/3 ML nebule NEB SCH ×4 (07:20→19:26)
[2020-01-03] MEDS: budesonide 0.5mg/2ml UD nebule IH SCH ×2 (07:20→19:26)
[2020-01-03 07:44] LABS: ANISOCYTOSIS 2+; HYPOCHROMASIA 1+; PLATELET ESTIMATE NORMAL; POLYCHROMASIA FEW
[2020-01-03 07:45] LABS: ELLIPTOCYTES FEW; SCHISTOCYTES FEW; TEAR DROP CELLS FEW
[2020-01-03] MEDS ORDERED: vancomycin/NS 1 GM ADD-VANTAGE 250 ML IV ONE (09:00)
[2020-01-03] MEDS: folic acid 1mg tablet PO SCH (09:28)
[2020-01-03] MEDS: fluticasone nasal spray 16GM bottle NS SCH (09:28)
[2020-01-03] MEDS: docusate sod 100mg capsule PO SCH ×2 (09:28→20:17)
[2020-01-03] MEDS: sevelamer carbonate 800mg tablet PO SCH ×3 (09:28→17:52)
[2020-01-03] MEDS: gabapentin 100mg capsule PO SCH (09:29)
[2020-01-03] MEDS: atorvastatin 10mg tablet PO SCH (09:29)
[2020-01-03] MEDS: cloNIDine 0.1 mg tablet PO SCH ×3 (09:29→20:19)
[2020-01-03] MEDS: NIFEdipine XL 30mg tablet PO SCH ×2 (09:29→20:17)
[2020-01-03] MEDS: isosorbide mononitrate 30mg tab.SR.24H PO SCH (09:30)
[2020-01-03] MEDS: carVEDilol 12.5mg tablet PO SCH ×2 (09:30→20:19)
[2020-01-03] MEDS: losartan 50mg tablet PO SCH ×2 (09:30→20:18)
[2020-01-03] MEDS: lactobacillus rhamnosus 10,000 MMU CELLS/CAPSULE PO SCH ×2 (09:31→20:17)
[2020-01-03] MEDS: bumetanide 1mg tablet PO SCH ×2 (09:32→20:18)
[2020-01-03] MEDS: aspirin 81mg tablet.DR PO SCH (09:33)
[2020-01-03] MEDS: heparin, porcine 5000 units/ml vial SQ SCH ×2 (10:05→20:17)
[2020-01-03] MEDS: piperacillin/tazo 3.375gm/50ml 50 ML IV SCH ×2 (10:25→20:19)
--- NOTE | 2020-01-03 13:21 | NUR ---
Both dialysis nurses Lachelle and Coliln happened to be in the unit doing dialysis to another patients that Dr. Ivy ordered hemodialysis for today.
--- NOTE | 2020-01-03 13:42 | NUR ---
Dialysis nurse Lachelle reviewed the dialysis order, it was actually for tomorrow 01/04/20
--- NOTE | 2020-01-03 13:58 | NUR ---
Patient currently sitting up on the edge of the bed. Per Asher PT, patient still very weak and very unsteady for transfer to nursing. Patient educated about unsafe transfer. Patient was advised to call for help and not to get up by himself as he will fall on the floor and get injured, patient verbalized understanding. patient bed alarm on and call light within reach.
--- NOTE | 2020-01-03 15:40 | NUR ---
Dr. Ybarra came by to see patient. Dr. Ybarra looked at the wound. Per Dr. Ybarra, no need for surgery and he did not see any abscess.
--- NOTE | 2020-01-03 18:19 | NUR ---
Problems reprioritized. Patient report given, questions answered & plan of care reviewed with Alina LOYD.
[2020-01-04] MEDS: HYDROcodone/acetaminophen 10/325mg tab PO PRN (01:36)
[2020-01-04 02:00] VITALS: BP 95/51
[2020-01-04] MEDS: VANCOMYCIN LEVEL IV SCH (03:00)
[2020-01-04 03:48] LABS: BASOPHILS # (AUTO) 0.1 X10'3 (0-0.2); BASOPHILS % (AUTO) 1.4 % (0-1); EOSINOPHILS # (AUTO) 0.2 X10'3 (0-0.9); EOSINOPHILS % (AUTO) 2.6 % (0-6); HEMATOCRIT 26.4 % (42.0-52.0); HEMOGLOBIN 8.6 g/dl (14.0-17.9); LYMPHOCYTES # (AUTO) 1.3 X10'3 (1.1-4.8); LYMPHOCYTES % (AUTO) 19.6 % (21-51); MEAN CORPUSCULAR HEMOGLOBIN 28.7 PG (27.0-31.0); MEAN CORPUSCULAR HGB CONC 32.5 g/dL (33.0-36.5); MEAN CORPUSCULAR VOLUME 88.5 FL (78-98); MEAN PLATELET VOLUME 8.2 FL (7.4-10.4); MONOCYTES # (AUTO) 0.5 X10'3 (0-0.9); MONOCYTES % (AUTO) 7.9 % (2-12); NEUTROPHILS # (AUTO) 4.5 X10'3 (1.8-7.7); NEUTROPHILS % (AUTO) 68.5 % (42-75); PLATELET COUNT 205 X10'3 (140-440); RED BLOOD COUNT 2.98 X10'6 (4.70-6.10); RED CELL DISTRIBUTION WIDTH 18.4 % (11.5-14.5); WHITE BLOOD COUNT 6.5 X10'3 (4.5-11.0)
[2020-01-04 04:04] LABS: ALANINE AMINOTRANSFERASE 11 U/L (12-78); ALBUMIN 2.3 G/DL (3.4-5.0); ALBUMIN/GLOBULIN RATIO 0.5 (1.1-1.5); ALKALINE PHOSPHATASE 92 IU/L (46-116); ANION GAP 8 (8-16); ASPARTATE AMINO TRANSFERASE 10 U/L (10-37); BILIRUBIN,TOTAL 0.5 MG/DL (0.1-1.0); BLOOD UREA NITROGEN 51 MG/DL (7-18); CALCIUM 9.3 MG/DL (8.5-10.1); CHLORIDE 99 MMOL/L (99-107); CREATININE 5.66 MG/DL (0.60-1.10); GLUCOSE 98 MG/DL (70-104); MAGNESIUM 2.3 MG/DL (1.5-2.4); PHOSPHORUS 5.9 MG/DL (2.3-4.5); SODIUM 135 MMOL/L (135-145); TOTAL CARBON DIOXIDE 28.1 MMOL/L (24-32); TOTAL PROTEIN 7.1 G/DL (6.4-8.2); VANCOMYCIN,RANDOM 18.2 UG/ML; eGFR 10 ML/MIN
[2020-01-04 04:05] LABS: POTASSIUM 6.1 MMOL/L (3.5-5.1)
[2020-01-04 06:00] VITALS: BP 139/67
--- NOTE | 2020-01-04 06:13 | NUR ---
Patient in room PCU 3023. I have received report from EVERT Fuller and had the opportunity to ask questions and assume patient care.
[2020-01-04] MEDS: budesonide 0.5mg/2ml UD nebule IH SCH (07:28)
[2020-01-04] MEDS: albuterol 2.5 MG/3 ML nebule NEB SCH ×2 (07:29→11:43)
[2020-01-04] MEDS ORDERED: normal saline 1000ml 250 ML IV PRN (08:00)
[2020-01-04] MEDS ORDERED: epoetin 20,000 units/ml inj IV ONE (08:00)
[2020-01-04] MEDS ORDERED: heparin 1,000 units/ml 10ml inj IV ONE (08:00)
[2020-01-04] MEDS ORDERED: LIDOcaine 1% (10mg/ml) 2ml vial SQ ONE (08:00)
[2020-01-04] MEDS: isosorbide mononitrate 30mg tab.SR.24H PO SCH (08:25)
[2020-01-04] MEDS: aspirin 81mg tablet.DR PO SCH (08:25)
[2020-01-04] MEDS: lactobacillus rhamnosus 10,000 MMU CELLS/CAPSULE PO SCH (08:25)
[2020-01-04] MEDS: gabapentin 100mg capsule PO SCH (08:25)
[2020-01-04] MEDS: atorvastatin 10mg tablet PO SCH (08:25)
[2020-01-04] MEDS: folic acid 1mg tablet PO SCH (08:25)
[2020-01-04] MEDS: docusate sod 100mg capsule PO SCH (08:25)
[2020-01-04] MEDS: NIFEdipine XL 30mg tablet PO SCH (08:26)
[2020-01-04] MEDS: cloNIDine 0.1 mg tablet PO SCH ×2 (08:26→13:00)
[2020-01-04] MEDS: sevelamer carbonate 800mg tablet PO SCH ×2 (08:26→13:00)
[2020-01-04] MEDS: losartan 50mg tablet PO SCH (08:26)
[2020-01-04] MEDS: bumetanide 1mg tablet PO SCH (08:26)
[2020-01-04] MEDS: carVEDilol 12.5mg tablet PO SCH (08:28)
[2020-01-04] MEDS: piperacillin/tazo 3.375gm/50ml 50 ML IV SCH (08:36)
[2020-01-04] MEDS: fluticasone nasal spray 16GM bottle NS SCH (08:36)
[2020-01-04] MEDS: heparin, porcine 5000 units/ml vial SQ SCH (08:53)
[2020-01-04 11:00] VITALS: BP 103/56
[2020-01-04 15:00] VITALS: BP 109/57
--- NOTE | 2020-01-04 16:10 | NUR ---
Discharged. PIV out. Safe per Dr Ivy to [place]. Educated on DM survival skills and Hyperkalemia. Educated that he needs to be non weight bearing on right foot. Being wheeled down to the lobby to be picked up by [facility].
== END 2020-01-04 16:15 | disposition home or self-care (01) | DRG 70 ==
LOC: ER 15:27 → ED HOLD 16:17 → PCU 3S 19:20
PROVIDERS: ADMIT Internal Medicine Critical Care Medicine; ATTEND Internal Medicine Critical Care Medicine
PROC: 5A1D70Z Performance of Urinary Filtration, Intermittent, Less than 6 Hours Per Day (ICD-10-PCS; principal; 2019-12-31)
DX: G93.40 Encephalopathy, unspecified (principal); N18.6 End stage renal disease; I42.9 Cardiomyopathy, unspecified; I13.2 Hypertensive heart and chronic kidney disease with heart failure and with stage 5 chronic kidney disease, or end stage renal disease; L03.116 Cellulitis of left lower limb; L03.115 Cellulitis of right lower limb; L97.421 Non-pressure chronic ulcer of left heel and midfoot limited to breakdown of skin; L02.818 Cutaneous abscess of other sites; L02.31 Cutaneous abscess of buttock; L97.411 Non-pressure chronic ulcer of right heel and midfoot limited to breakdown of skin; E87.5 Hyperkalemia; E11.22 Type 2 diabetes mellitus with diabetic chronic kidney disease; E11.621 Type 2 diabetes mellitus with foot ulcer; F12.90 Cannabis use, unspecified, uncomplicated; I25.10 Atherosclerotic heart disease of native coronary artery without angina pectoris; I48.91 Unspecified atrial fibrillation; I50.9 Heart failure, unspecified; J44.9 Chronic obstructive pulmonary disease, unspecified; F17.200 Nicotine dependence, unspecified, uncomplicated; L89.159 Pressure ulcer of sacral region, unspecified stage; F32.9 Major depressive disorder, single episode, unspecified; G47.30 Sleep apnea, unspecified; L98.429 Non-pressure chronic ulcer of back with unspecified severity; M79.7 Fibromyalgia; R62.7 Adult failure to thrive; Z79.51 Long term (current) use of inhaled steroids; I25.2 Old myocardial infarction; Z91.15 Patient's noncompliance with renal dialysis; Z95.5 Presence of coronary angioplasty implant and graft; Z99.2 Dependence on renal dialysis; Z88.2 Allergy status to sulfonamides; Z88.5 Allergy status to narcotic agent; Z68.24 Body mass index [BMI] 24.0-24.9, adult; Z79.899 Other long term (current) drug therapy; Z79.82 Long term (current) use of aspirin; Z99.3 Dependence on wheelchair
CPT/HCPCS: 36415; 36600; 70450; 71045; 72192; 80053; 80202; 82803; 82948; 83605; 83735; 84100; 84145; 85008; 85018; 85025; 85027; 87040; 87070; 87075; 87340; 93005; 94640; 94664; 94760; 97110; 97116; 97161; 97530; 99285; G0378; J0696; J1644; J1940; J2405; J2543; J3370; J7626; Q4081

== ENCOUNTER 2020-01-22 10:28 | Outpatient (CLI) | payer MEDICARE, MEDICAID ==
[~2020-01-22 10:28] MED LIST changes: -ISOS30TA6 PO; +ISOS30TA84 PO
[2020-01-22 12:42] LABS: BASOPHILS # (AUTO) 0.1 X10'3 (0-0.2); BASOPHILS % (AUTO) 1.2 % (0-1); EOSINOPHILS # (AUTO) 0.1 X10'3 (0-0.9); HEMATOCRIT 25.2 % (42.0-52.0); HEMOGLOBIN 8.1 g/dl (14.0-17.9); LYMPHOCYTES # (AUTO) 1.3 X10'3 (1.1-4.8); MEAN CORPUSCULAR HEMOGLOBIN 29.5 PG (27.0-31.0); MEAN CORPUSCULAR HGB CONC 32.3 g/dL (33.0-36.5); MEAN CORPUSCULAR VOLUME 91.3 FL (78-98); MEAN PLATELET VOLUME 7.8 FL (7.4-10.4); MONOCYTES # (AUTO) 0.5 X10'3 (0-0.9); MONOCYTES % (AUTO) 8.7 % (2-12); NEUTROPHILS # (AUTO) 3.3 X10'3 (1.8-7.7); NEUTROPHILS % (AUTO) 64.1 % (42-75); PLATELET COUNT 203 X10'3 (140-440); RED BLOOD COUNT 2.76 X10'6 (4.70-6.10); RED CELL DISTRIBUTION WIDTH 20.2 % (11.5-14.5); WHITE BLOOD COUNT 5.2 X10'3 (4.5-11.0)
[2020-01-22 12:54] LABS: ALANINE AMINOTRANSFERASE 10 U/L (12-78); ALBUMIN 2.3 G/DL (3.4-5.0); ALBUMIN/GLOBULIN RATIO 0.4 (1.1-1.5); ALKALINE PHOSPHATASE 104 IU/L (46-116); ANION GAP 7 (8-16); ASPARTATE AMINO TRANSFERASE 11 U/L (10-37); BILIRUBIN,TOTAL 0.4 MG/DL (0.1-1.0); BLOOD UREA NITROGEN 62 MG/DL (7-18); BUN/CREATININE RATIO 11.6 (5.4-32.0); C-REACTIVE PROTEIN 4.37 MG/DL (0.0-0.5); CALCIUM 8.7 MG/DL (8.5-10.1); CHLORIDE 103 MMOL/L (99-107); CREATININE 5.36 MG/DL (0.60-1.10); GLUCOSE 105 MG/DL (70-104); POTASSIUM 5.9 MMOL/L (3.5-5.1); SODIUM 141 MMOL/L (135-145); TOTAL CARBON DIOXIDE 30.9 MMOL/L (24-32); TOTAL PROTEIN 7.5 G/DL (6.4-8.2); eGFR 11 ML/MIN
[2020-01-22 14:06] LABS: PLATELET ESTIMATE NORMAL
[2020-01-22 14:12] LABS: ELLIPTOCYTES FEW; POLYCHROMASIA 1+; SCHISTOCYTES FEW
[2020-01-22 14:13] LABS: ANISOCYTOSIS 2+; HYPOCHROMASIA 1+; POIKILOCYTOSIS FEW
[2020-03-24] MEDS ORDERED: FOLI0.8T22 PO (13:49)
[2020-03-24] MEDS ORDERED: OXYC9CAP PO (13:52)
[2020-03-24] MEDS ORDERED: CARV12.529 PO (14:04)
== END 2020-01-22 23:59 | disposition home or self-care (01) ==
LOC: WOUND CARE 10:28
PROVIDERS: ATTEND Nurse Practitioner
DX: E11.621 Type 2 diabetes mellitus with foot ulcer (principal); L89.890 Pressure ulcer of other site, unstageable; L97.512 Non-pressure chronic ulcer of other part of right foot with fat layer exposed; L97.522 Non-pressure chronic ulcer of other part of left foot with fat layer exposed; L89.899 Pressure ulcer of other site, unspecified stage; L89.620 Pressure ulcer of left heel, unstageable; L89.610 Pressure ulcer of right heel, unstageable; L97.421 Non-pressure chronic ulcer of left heel and midfoot limited to breakdown of skin; L97.411 Non-pressure chronic ulcer of right heel and midfoot limited to breakdown of skin; E11.622 Type 2 diabetes mellitus with other skin ulcer; L97.821 Non-pressure chronic ulcer of other part of left lower leg limited to breakdown of skin; L97.212 Non-pressure chronic ulcer of right calf with fat layer exposed; L97.312 Non-pressure chronic ulcer of right ankle with fat layer exposed; L97.222 Non-pressure chronic ulcer of left calf with fat layer exposed; L97.322 Non-pressure chronic ulcer of left ankle with fat layer exposed; I13.2 Hypertensive heart and chronic kidney disease with heart failure and with stage 5 chronic kidney disease, or end stage renal disease; E11.22 Type 2 diabetes mellitus with diabetic chronic kidney disease; N18.6 End stage renal disease; I50.9 Heart failure, unspecified; E11.69 Type 2 diabetes mellitus with other specified complication; M86.171 Other acute osteomyelitis, right ankle and foot; I25.10 Atherosclerotic heart disease of native coronary artery without angina pectoris; J44.9 Chronic obstructive pulmonary disease, unspecified; E78.5 Hyperlipidemia, unspecified; E87.5 Hyperkalemia; I25.2 Old myocardial infarction; E11.52 Type 2 diabetes mellitus with diabetic peripheral angiopathy with gangrene; G47.30 Sleep apnea, unspecified; I48.91 Unspecified atrial fibrillation; E46 Unspecified protein-calorie malnutrition; F32.9 Major depressive disorder, single episode, unspecified; F17.210 Nicotine dependence, cigarettes, uncomplicated; Z79.899 Other long term (current) drug therapy; Z68.25 Body mass index [BMI] 25.0-25.9, adult; Z99.2 Dependence on renal dialysis; Z79.82 Long term (current) use of aspirin; Z86.19 Personal history of other infectious and parasitic diseases; Z95.5 Presence of coronary angioplasty implant and graft
CPT/HCPCS: 11042; 11045; 36415; 80053; 83036; 85008; 85025; 85651; 86140; 97597

== ENCOUNTER 2020-02-15 11:41 | Inpatient (IN) | payer MEDICARE, MEDICAID ==
[~2020-02-15] VITALS: Ht 177.8 cm; Wt 81.6 kg
[~2020-02-15 11:41] MED LIST changes: +ISOS30TA6 PO; -ISOS30TA84 PO
[2020-02-15 13:27] LABS: BASOPHILS # (AUTO) 0.1 X10'3 (0-0.2); BASOPHILS % (AUTO) 0.5 % (0-1); EOSINOPHILS % (AUTO) 0 % (0-6); HEMOGLOBIN 8.5 g/dl (14.0-17.9); LYMPHOCYTES # (AUTO) 0.9 X10'3 (1.1-4.8); LYMPHOCYTES % (AUTO) 6.2 % (21-51); MEAN CORPUSCULAR HEMOGLOBIN 28.9 PG (27.0-31.0); MEAN CORPUSCULAR HGB CONC 31.4 g/dL (33.0-36.5); MEAN PLATELET VOLUME 9.4 FL (7.4-10.4); MONOCYTES # (AUTO) 0.6 X10'3 (0-0.9); NEUTROPHILS # (AUTO) 13.5 X10'3 (1.8-7.7); NEUTROPHILS % (AUTO) 89.3 % (42-75); PLATELET COUNT 200 X10'3 (140-440); RED BLOOD COUNT 2.94 X10'6 (4.70-6.10); RED CELL DISTRIBUTION WIDTH 19.6 % (11.5-14.5); WHITE BLOOD COUNT 15.2 X10'3 (4.5-11.0)
[2020-02-15 13:39] LABS: ALANINE AMINOTRANSFERASE 113 U/L (12-78); ALBUMIN 2.2 G/DL (3.4-5.0); ALBUMIN/GLOBULIN RATIO 0.4 (1.1-1.5); ALKALINE PHOSPHATASE 119 IU/L (46-116); ANION GAP 15 (8-16); ASPARTATE AMINO TRANSFERASE 108 U/L (10-37); BILIRUBIN,TOTAL 0.7 MG/DL (0.1-1.0); BLOOD UREA NITROGEN 87 MG/DL (7-18); BUN/CREATININE RATIO 13.6 (5.4-32.0); CALCIUM 8.7 MG/DL (8.5-10.1); CHLORIDE 97 MMOL/L (99-107); GLUCOSE 95 MG/DL (70-104); SODIUM 138 MMOL/L (135-145); TOTAL CARBON DIOXIDE 26.1 MMOL/L (24-32); TOTAL PROTEIN 7.4 G/DL (6.4-8.2); eGFR 9 ML/MIN
[2020-02-15 13:42] LABS: POTASSIUM 7.1 MMOL/L (3.5-5.1)
--- NOTE | 2020-02-15 14:00 | NUR ---
SPOKE WITH [facility], THEY WOULD BE ABLE TO DO DIALYSIS TOMORROW AT 11:00, NEEDS TO BE THERE AT 10:40.
[2020-02-15] MEDS ORDERED: CefTRIAXone/D5W-Rocephin 1gm 50 ML IV ONE (14:20)
[2020-02-15 14:21] LABS: PLATELET ESTIMATE NORMAL
[2020-02-15 14:22] LABS: ANISOCYTOSIS 2+; HYPOCHROMASIA 1+
[2020-02-15 14:23] LABS: ELLIPTOCYTES 1+; SCHISTOCYTES FEW
[2020-02-15] MEDS ORDERED: albuterol 2.5 MG/3 ML nebule CONTNEB PRN (14:30)
[2020-02-15] MEDS ORDERED: SODIUM ZIRCONIUM CYCLOSILICATE 10 GM POWD.PACK PO ONE ×2 (14:35→21:00)
[2020-02-15] MEDS ORDERED: acetaminophen 325mg tablet PO PRN (15:30)
[2020-02-15] MEDS ORDERED: ondansetron/PF 4mg/2ml inj IV PRN (15:30)
[2020-02-15] MEDS ORDERED: normal saline 1000ml 250 ML IV PRN (15:30)
[2020-02-15] MEDS ORDERED: epoetin 20,000 units/ml inj IV ONE (15:30)
[2020-02-15] MEDS ORDERED: bisacodyl 10mg suppository rectal RC PRN (15:30)
[2020-02-15] MEDS ORDERED: heparin 1,000 units/ml 10ml inj IV ONE (15:30)
[2020-02-15] MEDS ORDERED: non-formulary drug (Ondansetron Hcl (Zofran) 1 TAB) PO PRN (16:15)
[2020-02-15] MEDS ORDERED: nitroGLYCERIN 0.4mg SUBLingual tab SL PRN (16:15)
[2020-02-15 17:51] VITALS: BP 118/63
[2020-02-15 18:00] VITALS: BP 129/57
[2020-02-15] MEDS: sevelamer carbonate 800mg tablet PO SCH (18:00)
--- NOTE | 2020-02-15 18:40 | NUR ---
Patient in room MED 307. I have received report from Tammy LOYD and had the opportunity to ask questions and assume patient care.
[2020-02-15] MEDS: oxyCODONE/APAP 10/325mg tablet PO PRN (18:59)
[2020-02-15] MEDS ORDERED: [UNRECOGNIZED DRUG - OTHER] IH SCH (20:00)
[2020-02-15] MEDS: NIFEdipine XL 30mg tablet PO SCH (20:00)
[2020-02-15] MEDS ORDERED: BUDESONIDE IH SCH (20:00)
[2020-02-15] MEDS ORDERED: FORMOTEROL FUMARATE IH SCH (20:00)
[2020-02-15] MEDS: albuterol 2.5 MG/3 ML nebule NEB SCH (20:05)
[2020-02-15] MEDS: budesonide 0.5mg/2ml UD nebule IH SCH (20:05)
--- NOTE | 2020-02-15 20:59 | NUR ---
Spoke with PMO PROJECT MANAGER about low HR. Hold Coreg and Catapres for tonight. Give losartan and wait till give Procardia. Patient receiving dialysis so unable to give medication at this time.
[2020-02-15] MEDS ORDERED: ALBUTEROL INHALER 1 PUFF/90 MCG INHALER IH SCH (21:00)
[2020-02-15 22:00] VITALS: BP 123/51
[2020-02-15] MEDS: carVEDilol 12.5mg tablet PO SCH (22:09)
[2020-02-15] MEDS: cloNIDine 0.1 mg tablet PO SCH (22:10)
[2020-02-15] MEDS: losartan 50mg tablet PO SCH (22:14)
[2020-02-15] MEDS: bumetanide 1mg tablet PO SCH (22:14)
[2020-02-15] MEDS: docusate sod 100mg capsule PO SCH (22:14)
[2020-02-15] MEDS: gabapentin 100mg capsule PO SCH (22:14)
[2020-02-15] MEDS: heparin, porcine 5000 units/ml vial SQ SCH (22:15)
[2020-02-16] MEDS: albuterol 2.5 MG/3 ML nebule NEB SCH ×2 (01:51→07:28)
[2020-02-16 02:00] VITALS: BP 135/67
[2020-02-16] MEDS: oxyCODONE/APAP 10/325mg tablet PO PRN ×2 (02:22→09:28)
[2020-02-16 06:00] VITALS: BP 121/66
--- NOTE | 2020-02-16 06:33 | NUR ---
Problems reprioritized. Patient report given, questions answered & plan of care reviewed with Perla LOYD.
[2020-02-16 07:00] LABS: BASOPHILS % (AUTO) 0.3 % (0-1); EOSINOPHILS % (AUTO) 0 % (0-6); HEMATOCRIT 28.1 % (42.0-52.0); LYMPHOCYTES # (AUTO) 0.5 X10'3 (1.1-4.8); LYMPHOCYTES % (AUTO) 3.1 % (21-51); MEAN CORPUSCULAR HEMOGLOBIN 29.6 PG (27.0-31.0); MEAN CORPUSCULAR VOLUME 92.4 FL (78-98); MEAN PLATELET VOLUME 9.2 FL (7.4-10.4); MONOCYTES # (AUTO) 0.6 X10'3 (0-0.9); MONOCYTES % (AUTO) 3.6 % (2-12); NEUTROPHILS # (AUTO) 15.2 X10'3 (1.8-7.7); PLATELET COUNT 224 X10'3 (140-440); RED BLOOD COUNT 3.04 X10'6 (4.70-6.10); RED CELL DISTRIBUTION WIDTH 19.5 % (11.5-14.5); WHITE BLOOD COUNT 16.4 X10'3 (4.5-11.0)
[2020-02-16 07:17] LABS: ALANINE AMINOTRANSFERASE 83 U/L (12-78); ALBUMIN/GLOBULIN RATIO 0.4 (1.1-1.5); ALKALINE PHOSPHATASE 113 IU/L (46-116); ANION GAP 11 (8-16); ASPARTATE AMINO TRANSFERASE 48 U/L (10-37); BILIRUBIN,TOTAL 0.7 MG/DL (0.1-1.0); BLOOD UREA NITROGEN 54 MG/DL (7-18); BUN/CREATININE RATIO 12.6 (5.4-32.0); CALCIUM 8.6 MG/DL (8.5-10.1); CHLORIDE 98 MMOL/L (99-107); GLUCOSE 97 MG/DL (70-104); MAGNESIUM 2.5 MG/DL (1.5-2.4); PHOSPHORUS 7.2 MG/DL (2.3-4.5); POTASSIUM 5.5 MMOL/L (3.5-5.1); SODIUM 137 MMOL/L (135-145); eGFR 14 ML/MIN
[2020-02-16] MEDS: budesonide 0.5mg/2ml UD nebule IH SCH (07:28)
[2020-02-16 07:57] LABS: ANISOCYTOSIS 2+; PLATELET ESTIMATE NORMAL; POLYCHROMASIA 1+; SCHISTOCYTES 1+
[2020-02-16] MEDS: bumetanide 1mg tablet PO SCH (08:00)
[2020-02-16] MEDS ORDERED: aspirin 81mg tablet.DR PO SCH (08:00)
[2020-02-16] MEDS ORDERED: isosorbide mononitrate 30mg tab.SR.24H PO SCH (08:00)
[2020-02-16] MEDS: carVEDilol 12.5mg tablet PO SCH (08:00)
[2020-02-16] MEDS: NIFEdipine XL 30mg tablet PO SCH (08:00)
[2020-02-16] MEDS ORDERED: folic acid 1mg tablet PO SCH (08:00)
[2020-02-16] MEDS: cloNIDine 0.1 mg tablet PO SCH ×2 (08:00→12:45)
[2020-02-16] MEDS ORDERED: fluticasone nasal spray 16GM bottle NS SCH (08:00)
[2020-02-16] MEDS ORDERED: atorvastatin 10mg tablet PO SCH (08:00)
[2020-02-16] MEDS ORDERED: docusate sod 250mg capsule PO SCH (08:00)
[2020-02-16] MEDS: gabapentin 100mg capsule PO SCH (08:26)
[2020-02-16] MEDS: sevelamer carbonate 800mg tablet PO SCH ×2 (08:26→12:53)
[2020-02-16] MEDS: docusate sod 100mg capsule PO SCH (08:26)
[2020-02-16 08:28] VITALS: BP_SYST 134
[2020-02-16] MEDS: losartan 50mg tablet PO SCH (08:28)
[2020-02-16] MEDS: heparin, porcine 5000 units/ml vial SQ SCH (08:29)
--- NOTE | 2020-02-16 12:45 | NUR ---
307 Ron Jimenez- patient is going to need home health, patient DC today. jared [id number]
[2020-02-16] MEDS ORDERED: CARV-50 PO (13:28)
--- NOTE | 2020-02-16 14:12 | NUR ---
Patient ready for discharge, belongings gathered and sent with patient. Spoke with son and patient about importance of compliance with dialysis. Also touched based on following up with wound care. Son arranged ride for patient with [place], and son brought home wheelchair for transport. PIV removed, cannula intact. Discharge instructions reviewed and sent home with patient. Called son to inform on the change to medication MD made, son aware and understands.
[2020-02-18 13:57] LABS: HBSAG SCREEN Negative (Negative)
--- NOTE | 2020-02-19 13:25 | NUR ---
CASE MANAGEMENT DISCHARGE FOLLOW UP: Spoke with pt's son via telephone. He states that his dad is confused, but less confused than when he was discharged from the hospital. He states that his dad has already had one round of dialysis and has another scheduled for tomorrow and he is hoping that will help improve pt's LOC. Advised that if pt does not improve to return to ED as something else could be going on, as this is not pt's baseline. Pt's son verbalizes understanding of s/sx requiring further evaluation/emergent assistance. He verbalizes understanding regarding change in pt's medication, has been monitoring pt's BP and states that it has been on the lower side (systolic 90-130) but pt appears to be tolerating, HR in 70s. Advised that if SBP drops below 90s to notify MD, advised pt normal range for HR is 60-100 and to notify PCP if HR sustains too low or too high. Pt's son verbalizes compliance with MD discharge instructions, understands of the importance in making/keeping follow-up appointments. He states that he has not heard from home health agency, will follow up as pt needs assistance with wound care. Pt's son does express some concern regard wound care received during his father's hospitalization, states pt came home with a bandage over ulcer on foot without any further care as Wound Care not available on weekend. He states that previous care has just been iodine with gauze and he wasn't sure why that could not have been done prior to discharge, otherwise he states no further questions/concerns at this time. Addendum: 02/19/20 at 1356 by Ana Durbin RN [id number] Spoke with Violetta Roque regarding pt's son not having heard from them, was informed that they had not been able to get into contact with pt or his son. Provided her with the contact number that this nurse reached the son on.
== END 2020-02-16 14:15 | disposition home health service (06) | DRG 640 ==
LOC: ER 11:42 → ED HOLD 15:27 → MED 3N 17:49
PROVIDERS: ADMIT Internal Medicine Critical Care Medicine; ATTEND Internal Medicine Critical Care Medicine
DX: E87.5 Hyperkalemia (principal); N18.6 End stage renal disease; I13.2 Hypertensive heart and chronic kidney disease with heart failure and with stage 5 chronic kidney disease, or end stage renal disease; I42.9 Cardiomyopathy, unspecified; G93.40 Encephalopathy, unspecified; I25.10 Atherosclerotic heart disease of native coronary artery without angina pectoris; I48.91 Unspecified atrial fibrillation; F32.9 Major depressive disorder, single episode, unspecified; G47.30 Sleep apnea, unspecified; L03.031 Cellulitis of right toe; I50.9 Heart failure, unspecified; J44.9 Chronic obstructive pulmonary disease, unspecified; M79.7 Fibromyalgia; F17.210 Nicotine dependence, cigarettes, uncomplicated; Z95.5 Presence of coronary angioplasty implant and graft; I25.2 Old myocardial infarction; Z88.2 Allergy status to sulfonamides; Z88.5 Allergy status to narcotic agent; Z79.899 Other long term (current) drug therapy; Z79.82 Long term (current) use of aspirin
CPT/HCPCS: 36415; 80053; 83735; 84100; 84132; 85008; 85025; 87081; 87340; 93005; 94640; 94760; 96365; 96375; 99285; G0378; J0696; J1644; J7626; Q4081

== ENCOUNTER 2020-03-11 16:54 | Inpatient (IN) | payer MEDICARE, MEDICAID ==
[~2020-03-11] VITALS: Ht 180.3 cm; Wt 86.4 kg
[~2020-03-11 16:54] MED LIST changes: +CARV-50 PO; -CARV25TA2 PO
[2020-03-11 17:49] LABS: BASOPHILS # (AUTO) 0.1 X10'3 (0-0.2); BASOPHILS % (AUTO) 0.5 % (0-1); EOSINOPHILS % (AUTO) 0.2 % (0-6); HEMATOCRIT 28.1 % (42.0-52.0); HEMOGLOBIN 8.8 g/dl (14.0-17.9); LYMPHOCYTES % (AUTO) 8.8 % (21-51); MEAN CORPUSCULAR HEMOGLOBIN 28.6 PG (27.0-31.0); MEAN CORPUSCULAR HGB CONC 31.3 g/dL (33.0-36.5); MEAN CORPUSCULAR VOLUME 91.4 FL (78-98); MONOCYTES # (AUTO) 0.7 X10'3 (0-0.9); MONOCYTES % (AUTO) 5.7 % (2-12); NEUTROPHILS % (AUTO) 84.8 % (42-75); PLATELET COUNT 168 X10'3 (140-440); RED BLOOD COUNT 3.08 X10'6 (4.70-6.10); WHITE BLOOD COUNT 11.8 X10'3 (4.5-11.0)
[2020-03-11 17:54] LABS: ALBUMIN 1.9 G/DL (3.4-5.0); ALBUMIN/GLOBULIN RATIO 0.3 (1.1-1.5); ALKALINE PHOSPHATASE 132 IU/L (46-116); ANION GAP 11 (8-16); ASPARTATE AMINO TRANSFERASE 5 U/L (10-37); BILIRUBIN,TOTAL 0.8 MG/DL (0.1-1.0); BLOOD UREA NITROGEN 45 MG/DL (7-18); CALCIUM 8.8 MG/DL (8.5-10.1); CHLORIDE 99 MMOL/L (99-107); CREATININE 4.49 MG/DL (0.60-1.10); GLUCOSE 115 MG/DL (70-104); POTASSIUM 4.7 MMOL/L (3.5-5.1); SODIUM 138 MMOL/L (135-145); TOTAL CARBON DIOXIDE 27.7 MMOL/L (24-32); TOTAL PROTEIN 7.4 G/DL (6.4-8.2); eGFR 13 ML/MIN
[2020-03-11 18:04] LABS: ALANINE AMINOTRANSFERASE < 6 U/L (12-78)
[2020-03-11] MEDS ORDERED: CefTRIAXone/D5W-Rocephin 1gm 50 ML IV ONE (18:25)
[2020-03-11 18:52] LABS: ANISOCYTOSIS 3+; HYPOCHROMASIA 1+; PLATELET ESTIMATE NORMAL; POLYCHROMASIA FEW; SCHISTOCYTES 1+
--- NOTE | 2020-03-11 18:54 | NUR ---
On assume care pt. has wounds wrapped and bandaged, no drainaged on dressing, dressings dry and intact.
[2020-03-11] MEDS ORDERED: acetaminophen 325mg tablet PO PRN ×2 (20:00)
[2020-03-11] MEDS ORDERED: ondansetron/PF 4mg/2ml inj IV PRN (20:00)
[2020-03-11] MEDS ORDERED: azithromycin/NS 500mg/250ml 250 ML IV SCH (20:00)
[2020-03-11] MEDS ORDERED: ALBUTEROL INHALER 1 PUFF/90 MCG INHALER IH PRN (20:10)
[2020-03-11] MEDS ORDERED: oxyCODONE/APAP 10/325mg tablet PO PRN (20:10)
[2020-03-11] MEDS ORDERED: albuterol 2.5 MG/3 ML nebule NEB PRN (20:25)
[2020-03-11] MEDS ORDERED: cloNIDine 0.1 mg tablet PO SCH (21:00)
--- NOTE | 2020-03-11 22:37 | NUR ---
ENTERED PATIENT'S ROOM TO PREPARE HIM FOR TRANSPORT UP TO THIS FLOOR. AT THIS TIME, PATIENT STATED THAT HE "WANTS TO GO HOME" PATIENT CONTINUED TO STATE THAT HE NO LONGER WANTS TO BE AT THE HOSPITAL, EDUCATED PATIENT TO RISKS OF LEAVING THE HOSPITAL PREMATURELY AGAINST MEDICAL ADVISE, UP TO AND INCLUDING PROBABLE . PATIENT SPOKE WITH SON ON PHONE AND IS ATTEMPTING TO ARRANGE TRANSPORTATION AT THIS TIME. KIM DAVIS NP AWARE.
--- NOTE | 2020-03-12 02:00 | NUR ---
provide patient ice chips upon patients request, patient amswering questions appropriatly denies anymore needs at this time primary RN aware will continue to monitor
--- NOTE | 2020-03-12 02:50 | NUR ---
PT REPOSITIONED , GIVEN EXTRA PILLOW, WARM BLANKETS AND WATER. PT STATED " I WANT TO GET FUCK OUT OF HERE " I AM TIRED OF BEING HERE . INFORMED PATIENT THAT HE IS STILL WAITING FOR TRANSPORTATION HOME . REMINDED PATIENT THAT HE IS REFUSING CARE AND THAT WE ARE DOING THE BEST THAT WE CAN TO GET HIM TRANSPORTATION . EMD WAS NOTIFIED AND THE MOST RECENT FOLLLOW UP WITH EMS , ADVISED HE WILL NOT BE PICKED UP FOR TRANSPORT TILL EARLY THIS AM AFTER 6 AM . PATIETN UPDATED PLAN OF CARE. PT VERBALIZED HE UNDERSTOOD . PT RESP EVEN AND UNLABORED . O2 SATS AT 100 % ROOM AIR . WILL CONTINUE TO REASSESS NEEDED
--- NOTE | 2020-03-12 03:08 | NUR ---
PATIENT THREW HIS WATER CUP AND BLANKETS ON THE FLOOR . PT STATES HE WANTS TO GO HOME . REMINDED PATIENT THAT WE ARE AWAITING EMS TRANSPORTATION . PT NOT USING VERY POSITIVE COMMUNICATION AND DEMANDING . WILL CONTINUE TO ASSESS AND MONITOR .
[2020-03-12 07:05] VITALS: BP 122/61
[2020-03-12] MEDS ORDERED: isosorbide mononitrate 30mg tab.SR.24H PO SCH (08:00)
[2020-03-12] MEDS ORDERED: sevelamer carbonate 800mg tablet PO SCH (08:00)
[2020-03-12] MEDS ORDERED: aspirin 81mg tablet.DR PO SCH (08:00)
[2020-03-12] MEDS ORDERED: CefTRIAXone 2gm/D5W 50ml BAG 50 ML IV SCH (08:00)
[2020-03-12] MEDS ORDERED: folic acid 1mg tablet PO SCH (08:00)
[2020-03-12] MEDS ORDERED: docusate sod 250mg capsule PO SCH (08:00)
[2020-03-12] MEDS ORDERED: losartan 50mg tablet PO SCH (08:00)
== END 2020-03-12 08:24 | disposition left against medical advice (07) | DRG 193 ==
LOC: ER 16:55 → ED HOLD 19:57
PROVIDERS: ADMIT Internal Medicine Critical Care Medicine; ATTEND Internal Medicine Critical Care Medicine
DX: J18.9 Pneumonia, unspecified organism (principal); N18.6 End stage renal disease; I13.2 Hypertensive heart and chronic kidney disease with heart failure and with stage 5 chronic kidney disease, or end stage renal disease; J44.0 Chronic obstructive pulmonary disease with (acute) lower respiratory infection; I25.10 Atherosclerotic heart disease of native coronary artery without angina pectoris; F32.9 Major depressive disorder, single episode, unspecified; Z20.822 Contact with and (suspected) exposure to COVID-19; Z53.29 Procedure and treatment not carried out because of patient's decision for other reasons; R09.02 Hypoxemia; F17.210 Nicotine dependence, cigarettes, uncomplicated; I50.9 Heart failure, unspecified; I48.91 Unspecified atrial fibrillation; I25.2 Old myocardial infarction; Z99.2 Dependence on renal dialysis; Z88.5 Allergy status to narcotic agent; Z88.2 Allergy status to sulfonamides; Z79.899 Other long term (current) drug therapy; Z79.82 Long term (current) use of aspirin
CPT/HCPCS: 36415; 71045; 80053; 83605; 83880; 84484; 85008; 85025; 86140; 87040; 87635; 93005; 96365; 96366; 96368; 99285; C9803; G0378; J0456; J0696